=== PATIENT | female | born 1940 | race Caucasian/White ===

== ENCOUNTER 2024-08-22 14:08 | Emergency (ER) | payer OTHER, BC, SELFPAY ==
[2024-08-22 14:15] VITALS: BP 185/95
--- NOTE | 2024-08-22 14:21 | ED.GENMED ---
ED Provider Triage
<Luis Anderson PA-C - Last Filed: 08/22/24 14:22>
-
Patient seen by provider in Triage?: Seen in Triage
83-year-old female presents with progressive weakness cough shortness of breath and fatigue. This has been worsening over the past week. There are multiple members in the household that are sick. She also describes a stress on her heart. She
cannot do anything without shortness of breath. No prior history of CHF or coronary artery disease.
Vital signs are stable at triage. Will start workup with labs troponin EKG chest x-ray COVID and flu testing
Seen by provider in triage but warrants further assessment
History of Present Illness
<Luis Anderson PA-C - Last Filed: 08/22/24 14:22>
General
Chief Complaint: Cold/Flu/URI Symptoms
Time Seen by Provider: 08/22/24 17:31
<Derrick Meek MD - Last Filed: 08/22/24 19:12>
General
Source: patient and family (Son)
Exam Limitations: none
History of Present Illness
History of Present Illness:
83-year-old female 2 to 3 days cough congestion fatigue weakness. No fever. No pleuritic pain. No hemoptysis. History of same last year in [place].
Past History
<Derrick Meek MD - Last Filed: 08/22/24 19:12>
Past History
ED Past Medical History: NIDDM
ED Past Surgical History: Orthopedic
Review of Systems
<Derrick Meek MD - Last Filed: 08/22/24 19:12>
Review of Systems
All Other Systems: Not applicable
Constitutional: Reports fatigue
Respiratory: Denies hemoptysis
Cardiac: Denies chest pain or syncope
Phy Exam
<Derrick Meek MD - Last Filed: 08/22/24 19:12>
Physical Exam
Physical Exam:
GENERAL: Alert and oriented moderately anxious.
EYE: Orbits normal.
NECK: Supple
CARDIAC: Regular rate and rhythm without any obvious murmurs.
LUNGS: Mildly tachypneic. Mild expiratory rhonchi in the bases. No florid rales.
ABDOMEN: Soft, without focal tenderness or distention
NEUROLOGICAL: Alert and oriented , grossly non-focal
SKIN: Warm and dry, no rash or lesion, no discoloration, skin intact.
MUSCULOSKELETAL: No edema,no deformity.Good color
PSYCH: Normal and appropriate interaction..
Course
<Luis Anderson PA-C - Last Filed: 08/22/24 14:22>
Orders/Labs/Results
Orders:
Orders
08/22/24 14:20
Electrocardiogram (*1) Urgent
Reason for Study: Shortness of Breath
EKG- Treatment ONCE
08/22/24 14:21
CR Chest - 2 Views Urgent
Comment:
Reason For Exam: sob
08/22/24 14:26
COVID-19 Antigen Urgent
Source: Nasal Swab
Complete Blood Count/With Diff Urgent
Comprehensive Metabolic Panel Urgent
NT-proBNP Urgent
Troponin I Urgent
Influenza A+B Rapid Molecular Urgent
EMERITA Source: Nasal Swab
Specimen Description:
08/22/24 17:45
Dexamethasone Sod Phosphate [Decadron] 6 mg IV NOW STA
08/22/24 17:47
0.9% Sodium Chloride 500 ml [Nss] 500 ml IV BOLUS
08/22/24 18:19
Doxycycline [Vibramycin] 100 mg PO NOW STA
Prednisone [Deltasone] 40 mg PO NOW STA
Abnormal Lab Results
08/22/24
14:26
WBC 12.9 H 10^3/uL
(4.8-10.8)
RBC 5.93 H 10^6/uL
(4.20-5.40)
Hgb 17.8 H g/dL
(12.0-16.0)
Hct 50.2 H %
(37.0-47.0)
Abs Immat Gran (auto) 0.1 H 10^3/uL
(0-0.05)
Absolute Neuts (auto) 11.1 H 10^3/uL
(1.4-6.5)
Absolute Lymphs (auto) 0.7 L 10^3/uL
(1.2-3.4)
Absolute Monos (auto) 1.0 H 10^3/uL
(0.1-0.6)
Immature Gran % 0.7 H %
(0-0.5)
Neutrophils % 85.7 H %
(42.2-75.2)
Lymphocytes % 5.2 L %
(20.5-51.1)
Carbon Dioxide 20 L mmol/L
(22-30)
Glucose 176 H mg/dl
(70-99)
Troponin I 0.042 H* ng/ml
08/22/24 14:26
08/22/24 14:26
Vital Signs
Initial and Last Documented VS:
Initial Vital Signs
Temp Pulse Resp BP Pulse Ox
98.5 F 103 16 185/95 94
08/22/24 14:15 08/22/24 14:15 08/22/24 14:15 08/22/24 14:15 08/22/24 14:15
Last Documented Vital Signs
Temp Pulse Resp BP Pulse Ox
98.5 F 103 22 159/94 93
08/22/24 14:15 08/22/24 17:30 08/22/24 17:30 08/22/24 17:30 08/22/24 17:30
<Derrick Meek MD - Last Filed: 08/22/24 19:12>
Orders/Labs/Results
Orders:
Orders
08/22/24 14:20
Electrocardiogram (*1) Urgent
Reason for Study: Shortness of Breath
EKG- Treatment ONCE
08/22/24 14:21
CR Chest - 2 Views Urgent
Comment:
Reason For Exam: sob
08/22/24 14:26
COVID-19 Antigen Urgent
Source: Nasal Swab
Complete Blood Count/With Diff Urgent
Comprehensive Metabolic Panel Urgent
NT-proBNP Urgent
Troponin I Urgent
Influenza A+B Rapid Molecular Urgent
EMERITA Source: Nasal Swab
Specimen Description:
08/22/24 17:45
Dexamethasone Sod Phosphate [Decadron] 6 mg IV NOW STA
08/22/24 17:47
0.9% Sodium Chloride 500 ml [Nss] 500 ml IV BOLUS
08/22/24 18:19
Doxycycline [Vibramycin] 100 mg PO NOW STA
Prednisone [Deltasone] 40 mg PO NOW STA
Abnormal Lab Results
08/22/24
14:26
WBC 12.9 H 10^3/uL
(4.8-10.8)
RBC 5.93 H 10^6/uL
(4.20-5.40)
Hgb 17.8 H g/dL
(12.0-16.0)
Hct 50.2 H %
(37.0-47.0)
Abs Immat Gran (auto) 0.1 H 10^3/uL
(0-0.05)
Absolute Neuts (auto) 11.1 H 10^3/uL
(1.4-6.5)
Absolute Lymphs (auto) 0.7 L 10^3/uL
(1.2-3.4)
Absolute Monos (auto) 1.0 H 10^3/uL
(0.1-0.6)
Immature Gran % 0.7 H %
(0-0.5)
Neutrophils % 85.7 H %
(42.2-75.2)
Lymphocytes % 5.2 L %
(20.5-51.1)
Carbon Dioxide 20 L mmol/L
(22-30)
Glucose 176 H mg/dl
(70-99)
Troponin I 0.042 H* ng/ml
08/22/24 14:26
08/22/24 14:26
Vital Signs
Initial and Last Documented VS:
Initial Vital Signs
Temp Pulse Resp BP Pulse Ox
98.5 F 103 16 185/95 94
08/22/24 14:15 08/22/24 14:15 08/22/24 14:15 08/22/24 14:15 08/22/24 14:15
Last Documented Vital Signs
Temp Pulse Resp BP Pulse Ox
98.5 F 103 22 159/94 93
08/22/24 14:15 08/22/24 17:30 08/22/24 17:30 08/22/24 17:30 08/22/24 17:30
<Derrick Meek MD - Last Filed: 08/22/24 19:12>
MDM/Problems Addressed
Differential Diagnosis Includes:
Most suspicious of a respiratory issue. Pneumonitis by x-ray. Symptoms are more consistent with respiratory. However patient is tachypneic and off at rest and weak enough that this warrants inpatient evaluation. Would also consider a mild CHF
component. Patient rechecked multiple times throughout her ER stay. She was ambulated around the ER. Pulse ox did remain in the low 90s however I stressed to her that I felt she was ill enough and there is some uncertainty in the underlying
etiology of this clearly warranted admission. Patient refused and is aware of the risk
<Derrick Meek MD - Last Filed: 08/22/24 19:12>
*Pulse Oximetry
Patient hypoxic: no
*EKG
Interpreted by ED Provider?: Yes
Interpretation: abnormal
Heart Rate: 97
Rate: normal
Rhythm: sinus
[place]: normal axis
Interval: normal interval
QRS Pattern: right bundle branch block
Ischemia: non-specific ST changes
*[employer] Operator Interpretation
Rate: normal
Interpretation: normal
Heart Rate: 90
Rhythm: sinus
*Critical Care Note
Total Time (30-74mins, 75-104mins- exclusive of procedures): Not Applicable
<Derrick Meek MD - Last Filed: 08/22/24 19:12>
Update Note
Update Note:
1819..... I advised the patient earlier to stay in the hospital. She seemed reluctantly willing at first. Plan was to give a dose of steroids some fluids observed for a while. In the hopes that she was willing to stay. However she refuses. She
adamantly refuses. I did ambulate her around the [place]. Her pulse ox was 92 to 93% but mildly tachypneic and generally weak appearing. I explained at length that this clinically appears more likely to be respiratory however I could not be 100%
sure there was not a CHF/cardiac component to her issues. I explained to her that this could be life-threatening whether it was purely respiratory purely cardiac or both. She is fully aware of that. She is fully understanding of this risk and
refuses to stay. Son was in the room and is also understanding I also stressed that if she changes her mind we are of course would be happy to have her come back and be reevaluated
ED Attending Note
<Luis Anderson PA-C - Last Filed: 08/22/24 14:22>
-
Portions of this chart may have been created with voice recognition software.� Occasional wrong word or��sound alike� substitutions may have occurred due to the inherent limitations of voice recognition software.
Discharge Plan
Departure
Patient Disposition: Home (Routine Discharge)
Date of Disposition: 08/22/24
Time of Disposition: 18:22
Patient with high blood pressure during this ER visit?: Yes
Discharge Problem:
Pneumonitis/upper respiratory infection, Possible CHF, Lung mass
Instructions: Shortness of breath in adults - ED discharge instructions, BLOOD PRESSURE
Prescriptions:
New
doxycycline hyclate 100 mg capsule
100 mg PO BID 10 Days Qty: 20 0RF
methylprednisolone [Medrol (Sridhar)] 4 mg tablets,dose pack
See Rx Instructions .ROUTE .COMPLEX Qty: 21 0RF
Rx Instructions:
for 6 days
Referrals:
Caden Rios, [Family Provider] - Follow up in 2-3 days
Activity Restrictions/Additional Instructions:
You should stay in the hospital. This could be life-threatening if you do not.
Please return if you change your mind about admission or get worse
Follow-up your CAT scan report with your primary physician
Interventions
Interventions:
*Risk Screen - Suicide Last Done: 08/22/24 14:15
*General Assessment Last Done: 08/22/24 17:30
*Neglect/Abuse Screening Last Done: 08/22/24 14:15
*ED COVID-19 Vaccine History Last Done: 08/22/24 17:30
*Nursing Disposition Last Done: 08/22/24 18:51
ED- Pulmonary Assessment Last Done: 08/22/24 17:30
Discharge Date and Time
Discharge Date/Time: 08/22/24 18:52
Print Language: BRITISH
[2024-08-22 14:37] LABS: % Basophils 0.3 % (0-2); % Eosinophils 0.2 % (0-6); % Immature Granulocytes 0.7 % (0-0.5); % Lymphocytes 5.2 % (20.5-51.1); % Monocytes 7.9 % (1.7-9.3); % Neutrophils 85.7 % (42.2-75.2); Absolute Immature Granulocytes 0.1 10^3/uL (0-0.05); Absolute Lymphocytes 0.7 10^3/uL (1.2-3.4); Absolute Neutrophils 11.1 10^3/uL (1.4-6.5); Hematocrit 50.2 % (37.0-47.0); Hemoglobin 17.8 g/dL (12.0-16.0); Mean Corp Hgb Conc. 35.5 g/dL (33.0-37.0); Mean Corpuscular Volume 84.7 fL (81.0-99.0); Mean Platelet Volume 9.7 fL (7.4-10.4); Nucleated Red Blood Cells % 0 %; Platelet Count 169 10^3/uL (130-400); Red Blood Cell Count 5.93 10^6/uL (4.20-5.40); Red Cell Dist. Width 12.8 % (11.5-14.5); White Blood Cell Count 12.9 10^3/uL (4.8-10.8)
[2024-08-22 14:47] LABS: ALT (SGPT) 21 U/L (0-35); AST (SGOT) 26 U/L (14-36); Albumin 4.6 g/dl (3.5-5.0); Alkaline Phosphatase 81 U/L (38-126); Blood Urea Nitrogen 12 mg/dl (7-17); Calcium 9.5 mg/dl (8.4-10.2); Carbon Dioxide 20 mmol/L (22-30); Chloride 100 mmol/L (98-107); Glucose 176 mg/dl (70-99); Potassium 3.8 mmol/L (3.5-5.1); Sodium 136 mmol/L (135-145); Total Bilirubin 1.1 mg/dl (0.2-1.3); Total Protein 7.6 g/dl (6.3-8.2); eGFR > 60.00
[2024-08-22 14:59] LABS: COVID-19 Antigen Negative (Negative)
[2024-08-22 15:02] LABS: NT-proBNP 1440 pg/ml; Troponin I 0.042 ng/ml
[2024-08-22 17:30] VITALS: BP 159/94
[2024-08-22] MEDS: DELTASONE 40 MG PO (18:30)
[2024-08-22] MEDS: VIBRAMYCIN 100 MG PO (18:30)
== END 2024-08-22 18:52 | disposition home or self-care (01) ==
LOC: EMR 14:08
PROVIDERS: Physician Assistant; EMERGENCY PHYSICIAN Emergency Medicine; FAMILY PHYSICIAN Family Medicine
DX: J98.4 Other disorders of lung (principal); J06.9 Acute upper respiratory infection, unspecified; E11.9 Type 2 diabetes mellitus without complications
CPT/HCPCS: 99285; 71046; 80053; 83880; 84484; 85025; 87502; 87811; 93005

== ENCOUNTER 2024-08-23 12:10 | Inpatient (IN) | payer OTHER, SELFPAY ==
[2024-08-23] VITALS (12 sets, daily range): BP systolic 127–182; BP diastolic 63–104; BMI 32.5
[2024-08-23] MEDS: DUONEB 3 ML INH (08:12)
[2024-08-23] MEDS: ATIVAN 0.25 MG IV ×2 (08:12→20:29)
[2024-08-23 08:17] LABS: Venous Blood Gas B.E. -1.3 mmol/L (-4 to +4); Venous Blood Gas HCO3 23.7 mmol/L (22-27); Venous Blood Gas pCO2 40 mmHg (35-48); Venous Blood Gas pH 7.38 (7.32-7.43); Venous Blood Gas pO2 90 mmHg (30-50)
[2024-08-23 08:18] LABS: Venous Blood Gas O2 Therapy %Oxygen/Room Air 93
[2024-08-23 08:21] LABS: % Basophils 0.5 % (0-2); % Eosinophils 0.1 % (0-6); % Immature Granulocytes 0.6 % (0-0.5); % Lymphocytes 8.4 % (20.5-51.1); % Monocytes 7.7 % (1.7-9.3); % Neutrophils 82.7 % (42.2-75.2); Absolute Basophils 0.1 10^3/uL (0-0.2); Absolute Immature Granulocytes 0.1 10^3/uL (0-0.05); Absolute Lymphocytes 1.3 10^3/uL (1.2-3.4); Absolute Monocytes 1.2 10^3/uL (0.1-0.6); Absolute Neutrophils 12.7 10^3/uL (1.4-6.5); Hematocrit 51.5 % (37.0-47.0); Mean Corpuscular Hgb 29.7 pg (27.0-31.0); Mean Platelet Volume 9.4 fL (7.4-10.4); Nucleated Red Blood Cells % 0 %; Platelet Count 219 10^3/uL (130-400); Red Blood Cell Count 6.06 10^6/uL (4.20-5.40); Red Cell Dist. Width 13.2 % (11.5-14.5); White Blood Cell Count 15.4 10^3/uL (4.8-10.8)
[2024-08-23 08:28] LABS: ALT (SGPT) 21 U/L (0-35); AST (SGOT) 35 U/L (14-36); Albumin 4.5 g/dl (3.5-5.0); Alkaline Phosphatase 73 U/L (38-126); Blood Urea Nitrogen 21 mg/dl (7-17); Calcium 9.5 mg/dl (8.4-10.2); Carbon Dioxide 23 mmol/L (22-30); Chloride 99 mmol/L (98-107); Estimated Creatinine Clearance 46 ml/min; Glucose 173 mg/dl (70-99); Potassium 3.9 mmol/L (3.5-5.1); Sodium 136 mmol/L (135-145); Total Bilirubin 0.7 mg/dl (0.2-1.3); Total Protein 7.3 g/dl (6.3-8.2); eGFR > 60.00
[2024-08-23 08:50] LABS: Troponin I 0.071 ng/ml
--- NOTE | 2024-08-23 09:07 | ED.GENMED ---
History of Present Illness
General
Chief Complaint: Breathing Problem
Source: patient, records and family
Exam Limitations: none
Time Seen by Provider: 08/23/24 07:34
Nursing documentation reviewed up to this point in time: agreed with
History of Present Illness
History of Present Illness:
83-year-old female with a past medical history of diabetes, hypothyroidism who presents to the emergency room with her family for evaluation of shortness of breath. Patient was seen in this emergency room yesterday; she had a chest x-ray which
showed pneumonitis and new lung mass. She was tachypneic and it was felt that she had likely a pneumonitis/bronchitis possibly some component of CHF (proBNP was elevated). She was recommended for admission to the hospital but declined admission
and left against advice. She returns today with worsening symptoms. She says that she was barely able to sleep last night due to shortness of breath and today even moving around in bed makes her feel extremely winded. She is denying any chest
pain to me. She has been coughing. Has not noticed any swelling of the legs. No fever or chills. She says she is very anxious. No other complaints.
Past History
Past History
ED Past Medical History: NIDDM
ED Past Surgical History: Orthopedic
Review of Systems
Review of Systems
All Other Systems: ROS reviewed and negative except as documented in HPI and ROS
Constitutional: Reports fatigue; Denies fever
Respiratory: Reports cough and trouble breathing
Cardiac: Denies chest pain or palpitations
ABD/GI: Denies abdominal pain, nausea or vomiting
: Denies flank pain
Musculoskeletal: Denies edema
Neurological: Denies dizzy or headache
Psychiatric: Reports anxiety
Phy Exam
Physical Exam
Physical Exam:
General: Awake, alert, oriented x3; anxious appearing
Head: Normocephalic, atraumatic
Eyes: Conjunctiva normal, EOMI
Throat: Airway intact, handling secretions
Neck: Trachea midline, no JVD
Lungs: Wheezing throughout all lung [place], tachypnea, speaking in short sentences; low normal pulse ox on room air
Heart: Tachycardia with regular rhythm, no murmurs, gallops, or rubs
Abd: Soft, non distended, nontender
Neuro: No gross deficits
Skin: no rash
Extremities: Trace edema at the ankles, equal pulses in all extremities
Scores
Heart Failure Risk
Heart Failure Risk Score: Not Applicable
Heart Score for Chest Pain Patients
STEMI patient?: Not applicable
Withdrawal Assessment of Alcohol
Withdrawal Assessment Completed?: Not applicable
Course
Orders/Labs/Results
Orders:
Orders
08/23/24 07:43
CT Chest PE Study Urgent
Comment:
Reason For Exam: SOB
Influenza A+B Rapid Molecular Urgent
EMERITA Source: Nasal Swab
Specimen Description:
Ipratropium/Albuterol Sulfate [Duoneb] 3 ml INH R NOW STA
Lorazepam [Ativan] 0.25 mg IV NOW STA
08/23/24 08:06
Complete Blood Count/With Diff Urgent
Comprehensive Metabolic Panel Urgent
Troponin I Urgent
Venous Blood Gas Urgent
%Oxygen/Room Air: 93
RSV [Respiratory Syncytial Virus] Urgent
EMERITA Source: Nasal Swab
Specimen Description:
Date Specimen was Collected: 08/23/24
Time Specimen was Collected: 07:59
08/23/24 09:11
Dexamethasone Sod Phosphate [Decadron] 10 mg IV NOW STA
08/23/24 09:56
Lactate Level [Lactic Acid] Urgent
Procalcitonin Urgent
PCT Algorithmm Indication: Respiratory
Blood Culture Q30M
EMERITA Source: Blood/Venous
Specimen Description:
Blood Culture Q30M
EMERITA Source: Blood/Venous
Specimen Description:
08/23/24 09:59
CefTRIAXone [Rocephin] 1,000 mg IV NOW STA
Doxycycline Hyclate [Vibramycin] 100 mg 0.9% Sodium Chloride 250 ml [Nss] 250 ml IV NOW
Abnormal Lab Results
08/23/24
08:06
WBC 15.4 H 10^3/uL
(4.8-10.8)
RBC 6.06 H 10^6/uL
(4.20-5.40)
Hgb 18.0 H g/dL
(12.0-16.0)
Hct 51.5 H %
(37.0-47.0)
Abs Immat Gran (auto) 0.1 H 10^3/uL
(0-0.05)
Absolute Neuts (auto) 12.7 H 10^3/uL
(1.4-6.5)
Absolute Monos (auto) 1.2 H 10^3/uL
(0.1-0.6)
Immature Gran % 0.6 H %
(0-0.5)
Neutrophils % 82.7 H %
(42.2-75.2)
Lymphocytes % 8.4 L %
(20.5-51.1)
VBG pO2 90 H mmHg
(30-50)
BUN 21 H mg/dl
(7-17)
Glucose 173 H mg/dl
(70-99)
Troponin I 0.071 H* ng/ml
08/23/24 08:06
08/23/24 08:06
Vital Signs
Initial and Last Documented VS:
Initial Vital Signs
Temp Pulse Resp BP Pulse Ox
36.7 C 107 20 172/104 93
08/23/24 07:30 08/23/24 07:30 08/23/24 07:30 08/23/24 07:30 08/23/24 07:30
Last Documented Vital Signs
Temp Pulse Resp BP Pulse Ox
36.7 C 92 30 182/88 94
08/23/24 07:30 08/23/24 08:30 08/23/24 08:30 08/23/24 08:00 08/23/24 08:30
MDM/Problems Addressed
Differential Diagnosis Includes:
Bronchitis, pneumonitis, pneumonia, PE, CHF
MDM/Problems Addressed:
83-year-old female with history as documented returns to the ER with worsening dyspnea after being seen yesterday diagnosed with bronchitis/pneumonitis and new lung mass. She arrives was hypertensive, tachycardic, tachypneic, low normal pulse ox.
Physical exam as above. Will place an IV send labs including a CBC and a CMP, VBG, troponin and proBNP. Will check CTA chest. Check an EKG. Swabs for COVID and flu negative yesterday. Add RSV. Will provide DuoNeb with significant wheezing and
a dose of steroids. Reassess after the above. Anticipate admission.
Labs reviewed: CBC shows leukocytosis to 15.4�with multiple SIRS criteria lactate and blood culture sent off. Her VBG shows no significant CO2 retention. CMP no clinically significant abnormalities. Troponin marginally elevated suspect in the
setting of respiratory illness�will trend. CT chest concerning for possible pneumonia. She was also positive for RSV. Treat with steroids, neb, antibiotics. Case discussed with hospitalist for admission with concern for sepsis secondary to
pneumonia, RSV.
*Radiology
Radiology exam reviewed: radiology read reviewed
*Pulse Oximetry
Patient hypoxic: no
*Critical Care Note
Total Time (30-74mins, 75-104mins- exclusive of procedures): Not Applicable
Data Reviewed
Review of Other/Old Records Reveals: Labs and Records
Source: patient, records and family
Patient Management
Discussion with other providers: Hospitalist (Discussed with hospitalist)
Escalation/DeEscalation of care consider admission/obs:
Admission indicated
ED Attending Note
-
Portions of this chart may have been created with voice recognition software.� Occasional wrong word or��sound alike� substitutions may have occurred due to the inherent limitations of voice recognition software.
Discharge Plan
Departure
Patient Disposition: Admit
Date of Disposition: 08/23/24
Time of Disposition: 10:08
Admit to doctor: Gerard
Presentation/result/management discussed w/ accepting MD/DO: Hospitalist
Discharge Problem:
Sepsis, Pneumonia, RSV bronchitis
Prescriptions:
No Action
doxycycline hyclate 100 mg capsule
100 mg PO BID 10 Days Qty: 20 0RF
methylprednisolone [Medrol (Sridhar)] 4 mg tablets,dose pack
See Rx Instructions .ROUTE .COMPLEX Qty: 21 0RF
Rx Instructions:
for 6 days
Referrals:
Caden Rios DO [Family Provider] -
Interventions
Interventions:
*Risk Screen - Suicide Last Done: 08/23/24 08:20
*General Assessment Last Done: 08/23/24 08:20
*Neglect/Abuse Screening Last Done: 08/23/24 08:20
ED- Fall Risk Assessment Last Done: 08/23/24 08:20
*ED COVID-19 Vaccine History Last Done: 08/23/24 08:20
ED- Cardiac Assessment Last Done: 08/23/24 08:20
ED- Pulmonary Assessment Last Done: 08/23/24 08:20
Discharge Date and Time
Print Language: IRISH
[2024-08-23] MEDS: DECADRON 10 MG IV (09:41)
[2024-08-23 10:15] LABS: Lactic Acid 1.9 mmol/L (0.7-2.0)
[2024-08-23 10:34] LABS: Procalcitonin 0.43 ng/ml (0.0-0.25)
[2024-08-23] MEDS: NSS 1000 IV (10:59)
[2024-08-23] MEDS: ROCEPHIN 1000 MG IV (10:59)
[2024-08-23] MEDS: VIBRAMYCIN 260 MG IV (11:31)
--- NOTE | 2024-08-23 11:36 | HPS.HSE ---
Family Physician
-
Family Physician: Caden Rios
Chief Complaint
-
Cough, shortness of breath
History of Present Illness
83-year-old female with history of type 2 diabetes mellitus, hypothyroidism presented to the ED with cough, shortness of breath. Patient was seen in the ED yesterday for similar complaint. She had chest x-ray which showed pneumonitis and a new
lung mass. She was tachypneic, elevated proBNP. She was advised for hospital admission but declined and left against advice. She returns today with worsening symptoms. She states that she was barely able to sleep last night due to shortness of
breath and today even moving around in bed makes her feel extremely winded. Patient denies chest pain. She is out of breath while speaking in full sentences. She denies swelling of the legs, fever, chills. She denies history of stroke, heart
failure, hypertension.
Medical History
Past Medical History
Past Medical History: Reports Hypothyroidism and NIDDM
Past Surgical History: Reports Orthopedic
Social History
Tobacco: Non-smoker
Alcohol: None
Drug: None
Personal: Single
Employment: Retired
Family History
Family History: Not pertinent
Allergies / Home Medications
Allergies reflects when Allergies were last updated in [facility].
Home Medications with original date entered in [facility]
Allergy/Medication List:
Allergies
Allergy/AdvReac Type Severity Reaction Status Date / Time
No Known Allergies Allergy Verified 08/22/24 14:15
Home Medications
doxycycline hyclate 100 mg capsule 100 mg PO BID 10 days #20 caps 08/22/24
methylprednisolone 4 mg tablets in a dose pack (Medrol (Sridhar)) See Rx Instructions PO .COMPLEX #21 ea 08/22/24
Review of Systems
-
History Source: Patient and Family (son)
Respiratory: Reports Cough and Trouble Breathing
Physical Exam
Vital Signs
Vital Signs
Temp Pulse Resp BP Pulse Ox
98.0 F 103 16 127/83 95
08/23/24 07:30 08/23/24 10:00 08/23/24 10:56 08/23/24 10:00 08/23/24 10:00
Physical Exam
General: Other (trouble breathing, able to speak in full sentences)
HEENT: NormoCephalic, Anicteric, Moist mucous membranes and Atraumatic
Respiratory: Clear and Other (mil course breath sounds at the right base )
Cardiac: S1/S2 and Regular Rhythm
Musculoskeletal: No Edema
Skin: Warm and Dry
Neuro: AO x 3
Psych: Anxious
Laboratory Results
-
08/23/24 08:06
08/23/24 08:06
Laboratory Results
Lactic Acid 1.9 mmol/L (0.7-2.0) 08/23/24 09:56
Total Bilirubin 0.7 mg/dl (0.2-1.3) 08/23/24 08:06
AST 35 U/L (14-36) 08/23/24 08:06
ALT 21 U/L (0-35) 08/23/24 08:06
Alkaline Phosphatase 73 U/L (38-126) 08/23/24 08:06
Troponin I 0.071 ng/ml H* 08/23/24 08:06
Data Reviewed
-
Diagnostic Radiology: Report Reviewed by me and Discussed with Physician
CT Scan: Report Reviewed by me and Discussed with Physician
Medical Tests (Nuc Med, Echo, EKG etc): Report Reviewed by me and Discussed with Physician
Lab Data: Labs Reviewed by me and Discussed with Physician
Impression/Plan
-
IMPRESSION:
Acute hypoxic respiratory insufficiency
Right lobe pneumonia
RSV positive
Type 2 diabetes mellitus
Hypothyroidism
Anxiety
PLAN:
Acute hypoxic respiratory insufficiency
Secondary to pneumonia/RSV
On 2 L of oxygen
Wean as able
Right lobe pneumonia
Check strep antigen and Legionella antigen
Check MRSA
Blood cultures pending
Start on IV cefepime and doxycycline
Tylenol for fever as needed
Incentive spirometry
Chest x-ray showed 2.9 cm right upper lobe mass
Chest CT was done which showed Patchy parenchymal airspace opacities are present within the right upper lobe, as well as the right middle lobe.
There is 2.4 cm in diameter focal confluent opacity which represents pneumonia. Not suggestive of neoplasia
RSV positive
Supportive care
Steroids not needed
Type 2 diabetes
Unverified home medication
Sliding scale
Hypothyroidism
Unverified home medication
Continue Synthroid
CODE STATUS full code
DVT prophylaxis Lovenox
[2024-08-23] MEDS: STERILE WATER FOR INJECTION 10 ML IV ×2 (12:16→20:31)
[2024-08-23] MEDS: MAXIPIME 2000 MG IV ×2 (12:16→20:30)
--- NOTE | 2024-08-23 12:25 | W.PN.UPDATE ---
Update Note
Progress Note Update
I personally performed a history and physical exam of the patient and discussed management with the resident. I reviewed the resident's note and agree with the documented findings and plan of care HPI/CC.
83-year-old female presents with chief complaints of cough and shortness of breath.
144/70, 91, 35, 98.0 �F, 95% 2L NC O2
Gen: NAD, Awake and alert
Eyes: EOMI, PERRLA, no scleral icterus.
Neck: supple.
CV: RRR, +S1/S2, no m/r/g.
Resp: CTAB, no rales, wheezes, or rhonchi.
Abd: +BS, soft, NT, ND
Skin: No rashes.
Neuro: CN 2-12 intact, non-focal.
Psych: Normal mood and affect.
Lab Results
08/23/24 08/23/24
08:06 09:56
WBC 15.4 H
RBC 6.06 H
Hgb 18.0 H
Hct 51.5 H
MCV 85.0
MCH 29.7
MCHC 35.0
RDW 13.2
Plt Count 219 D
MPV 9.4
Abs Immat Gran (auto) 0.1 H
Absolute Neuts (auto) 12.7 H
Absolute Lymphs (auto) 1.3
Absolute Monos (auto) 1.2 H
Absolute Eos (auto) 0.0
Absolute Basos (auto) 0.1
Immature Gran % 0.6 H
Neutrophils % 82.7 H
Lymphocytes % 8.4 L
Monocytes % 7.7
Eosinophils % 0.1
Basophils % 0.5
Nucleated RBC % 0
VBG pH 7.38
VBG pCO2 40
VBG pO2 90 H
VBG HCO3 23.7
VBG O2 Sat (Romulo) 98.0
VBG Base Excess -1.3
VBG O2 Therapy %oxygen/room air 93
Sodium 136
Potassium 3.9
Chloride 99
Carbon Dioxide 23
BUN 21 H
Creatinine 0.8
Estimated Creat Clear 46
eGFR > 60.00
Glucose 173 H
Lactic Acid 1.9
Calcium 9.5
Total Bilirubin 0.7
AST 35
ALT 21
Alkaline Phosphatase 73
Troponin I 0.071 H*
Total Protein 7.3
Albumin 4.5
Procalcitonin 0.43 H
08/23/24 08:06 Nasal Swab Respiratory Syncytial Virus Culture - Final
RSV Antigen Positive
CT chest: No PE. Bilateral apical airspace opacities, greatest within the right upper lobe, and findings are compatible with pneumonia. Small focus of confluent opacity within the right upper lobe, which is most likely a confluent focus of
pneumonia. Continued follow-up is recommended to look for resolution of presumed changes of pneumonia, and exclude underlying neoplasia. There are enlarged right hilar and mediastinal lymph nodes, most likely reactive inflammatory lymph nodes. No
significant pleural effusions are identified. Coronary artery calcifications are present. Please correlate with symptoms of and risk factors for coronary artery disease, with further workup as clinically appropriate. Mild fatty infiltration of the
liver in the visualized upper abdomen.
Sepsis and acute hypoxemic respiratory insufficiency due to acute viral (RSV) and bacterial bilateral pneumonia:
-Steroids given in the ER. Will not continue steroids as there is no indication.
-procal minimally elevated
-cont Cefepime/Doxy
-wean O2 as tolerated
-trend leukocytosis
-check Strep urinary Ag
[2024-08-23 16:01] LABS: Glucose - Point of Care 153 mg/dl (70-99)
[2024-08-23] MEDS: NOVOLOG FLEXPEN-LOW RESISTANCE 1 UNITS SC (16:35)
[2024-08-23] MEDS: LOVENOX SC ×2 (16:42→16:44)
[2024-08-23] MEDS: LOVENOX 40 MG SC (16:46)
--- NOTE | 2024-08-23 18:00 | PTCARENOTE ---
Pt presents to room from ED, assist x1 to bed, steady but weak. Harsh nonproductive cough, 98% on RA, [place]. LS diminished w/ scattered rhonchi. BP elevated, notified, 5mg IV Hydralazine ordered and given.Pt AOx3, but forgetful and impulsive,
ambulating w/o calling for assistance. MEd sitter placed in room for pt safety.
[2024-08-23] MEDS: APRESOLINE 5 MG IV (18:03)
[2024-08-23] MEDS: VIBRAMYCIN 100 MG PO (20:31)
[2024-08-23] MEDS: NSS (PRESERVATIVE FREE) 0.125 ML IV (20:31)
[2024-08-23 21:54] LABS: Glucose - Point of Care 172 mg/dl (70-99)
[2024-08-24] MEDS: MAXIPIME 2000 MG IV ×3 (04:21→20:44)
[2024-08-24] MEDS: STERILE WATER FOR INJECTION 10 ML IV ×3 (04:21→20:44)
[2024-08-24 07:06] LABS: % Basophils 0.3 % (0-2); % Eosinophils 0.1 % (0-6); % Immature Granulocytes 0.8 % (0-0.5); % Lymphocytes 16.7 % (20.5-51.1); % Monocytes 12.3 % (1.7-9.3); % Neutrophils 69.8 % (42.2-75.2); Absolute Basophils 0.1 10^3/uL (0-0.2); Absolute Immature Granulocytes 0.1 10^3/uL (0-0.05); Absolute Lymphocytes 2.7 10^3/uL (1.2-3.4); Absolute Neutrophils 11.4 10^3/uL (1.4-6.5); Hematocrit 51.9 % (37.0-47.0); Mean Corp Hgb Conc. 34.7 g/dL (33.0-37.0); Mean Corpuscular Hgb 30.1 pg (27.0-31.0); Mean Corpuscular Volume 86.6 fL (81.0-99.0); Mean Platelet Volume 10.1 fL (7.4-10.4); Nucleated Red Blood Cells % 0 %; Platelet Count 251 10^3/uL (130-400); Red Blood Cell Count 5.99 10^6/uL (4.20-5.40); Red Cell Dist. Width 13.3 % (11.5-14.5); White Blood Cell Count 16.3 10^3/uL (4.8-10.8)
[2024-08-24 07:26] LABS: ALT (SGPT) 23 U/L (0-35); AST (SGOT) 38 U/L (14-36); Albumin 4.2 g/dl (3.5-5.0); Alkaline Phosphatase 68 U/L (38-126); Blood Urea Nitrogen 36 mg/dl (7-17); Calcium 9.8 mg/dl (8.4-10.2); Carbon Dioxide 20 mmol/L (22-30); Chloride 106 mmol/L (98-107); Estimated Creatinine Clearance 46 ml/min; Glucose 136 mg/dl (70-99); Potassium 4.2 mmol/L (3.5-5.1); Sodium 141 mmol/L (135-145); Total Bilirubin 0.6 mg/dl (0.2-1.3); Total Protein 7.2 g/dl (6.3-8.2); eGFR > 60.00
--- NOTE | 2024-08-24 07:31 | W.PN.HOSP.TC ---
Today's Communication/Plan
-
Await for pending results
Continue IV antibiotics
IV Ativan as needed
Monitor temperature curve and WBC
Assessment / Plan
Assessment / Plan
IMPRESSION:
Acute hypoxemic respiratory insufficiency
Sepsis due to bacterial bilateral pneumonia
Cough
RSV positive
Type 2 diabetes mellitus
Hypothyroidism
Anxiety
Hypertension
PLAN:
Acute hypoxemic respiratory insufficiency
Secondary to pneumonia/RSV
On 2 L of oxygen
Wean as able
Sepsis due to bacterial bilateral pneumonia
Afebrile in the past 24 hours
Leukocytosis 16.3>15.4
Lactic acid 1.9
Strep antigen and Legionella antigen- negative
MRSA pending
Blood cultures pending
Continue IV cefepime and doxycycline
Tylenol for fever as needed
Incentive spirometry
Albuterol inhaler
Monitor temperature curve and WBC
Cough
Harsh nonproductive
Robitussin and Tessalon Perles as needed
Lozenges
RSV positive
Supportive care
Steroids not needed as there is no indication
Type 2 diabetes
Unverified home medication
Check HbA1C
Sliding scale
Hypothyroidism
Continue Synthroid
Anxiety
Ativan IV prn
Sertraline 25 mg p.o. at bedtime
Hypertension
IV Hydralazine 5 mg prn
CODE STATUS full code
Diabetic diet
DVT prophylaxis Lovenox
Anticipated Discharge: > 48 hours
Subjective/Interval History
-
Date of Service: August 24, 2024
Med sitter was placed in room for safety last night. No new events
Objective Data
-
Labs:
Laboratory Results
08/24/24
06:36
WBC 16.3 H
Hgb 18.0 H
Hct 51.9 H
Plt Count 251
Sodium 141
Potassium 4.2
Chloride 106
Carbon Dioxide 20 L
BUN 36 H
Creatinine 0.8
Glucose 136 H
Calcium 9.8
Total Bilirubin 0.6
AST 38 H
ALT 23
Alkaline Phosphatase 68
Vital Signs:
Vital Signs
Temp Pulse Resp BP Pulse Ox
98.1 F 76 18 138/85 97
08/23/24 23:00 08/23/24 23:00 08/23/24 23:00 08/23/24 23:00 08/23/24 23:00
I&O
08/23/24 08/24/24 08/25/24
06:59 06:59 06:59
Intake Total 240 / 240
Output Total 100 / 100
Balance 140 / 140
Review of Systems
-
All other systems: Reviewed and negative
Physical Exam
-
General: Comfortable
HEENT: Normocephalic and Atraumatic
Respiratory: Clear to Auscultation; Negative Wheezes, Rales or Rhonchi
Cardiac: Regular Rhythm and S1/S2
Musculoskeletal: No Edema
Neuro: AO x 3
Psych: Anxious
Data Reviewed
-
Labs: Labs Reviewed by me and Discussed with Physician
--- NOTE | 2024-08-24 07:45 | W.PN.UPDATE ---
Update Note
Progress Note Update
I saw and evaluated the patient. I reviewed the resident�s note and agree with findings and plan as documented in the resident�s note.
Gen: NAD, Awake and alert
Eyes: EOMI, PERRLA, no scleral icterus.
Neck: supple.
CV: RRR, +S1/S2, no m/r/g.
Resp: CTAB, no rales, wheezes, or rhonchi.
Abd: +BS, soft, NT, ND
Skin: No rashes.
Neuro: CN 2-12 intact, non-focal.
Psych: Normal mood and affect.
CT chest: No PE. Bilateral apical airspace opacities, greatest within the right upper lobe, and findings are compatible with pneumonia. Small focus of confluent opacity within the right upper lobe, which is most likely a confluent focus of
pneumonia. Continued follow-up is recommended to look for resolution of presumed changes of pneumonia, and exclude underlying neoplasia. There are enlarged right hilar and mediastinal lymph nodes, most likely reactive inflammatory lymph nodes. No
significant pleural effusions are identified. Coronary artery calcifications are present. Please correlate with symptoms of and risk factors for coronary artery disease, with further workup as clinically appropriate. Mild fatty infiltration of the
liver in the visualized upper abdomen.
Sepsis and acute hypoxemic respiratory insufficiency due to acute viral (RSV) and bacterial bilateral pneumonia:
-RSV POS, Flu/COVID NEG
-Steroids given in the ER. Will not continue steroids as there is no indication.
-procal minimally elevated
-was on 4L NC O2, now 94% on RA (discussed with RN)
-trend leukocytosis
-check Strep urinary Ag
-cont Cefepime/Doxy, likely transition to PO abx tomorrow
Other problems:
Hypothyroidism: Continue Levoxyl
Minimally elevated troponin represents nonischemic myocardial injury
Obesity due to excess calories
FULL/Lovenox
[2024-08-24 07:56] VITALS: BP 179/87
[2024-08-24 08:11] LABS: Glucose - Point of Care 131 mg/dl (70-99)
[2024-08-24] MEDS: ZOLOFT 25 MG PO (08:35)
[2024-08-24] MEDS: SYNTHROID 100 MCG PO (08:35)
[2024-08-24] MEDS: NOVOLOG FLEXPEN-LOW RESISTANCE SC ×3 (08:35→17:49)
[2024-08-24] MEDS: VIBRAMYCIN 100 MG PO ×2 (08:35→20:43)
[2024-08-24] MEDS: ROBITUSSIN 100 MG PO ×4 (08:49→23:17)
[2024-08-24 13:01] LABS: Glucose - Point of Care 127 mg/dl (70-99)
[2024-08-24] MEDS: APRESOLINE 5 MG IV ×2 (13:12→23:16)
--- NOTE | 2024-08-24 15:04 | CM ---
Patient with Dx pneumonia/RSV. Contact Precautions/Droplet Precautions. Room air. Receiving IV & PO Abx. PT Eval pending.
Met with patient who resides alone at [facility] in a 1 story house with 3 steps at entrance and furnished basement.
The patient has been independent in ADLs and ambulation using her RW at home and cane when she goes out.
She says she is normally steady on her feet however felt unsure of herself while ambulating today due to SOB.
DME - RW, [facility]
No prior VN or SNF.
PCP - Caden Rios
Pharmacy - [facility]
CM Consult: Advanced Directive
Offered Advanced Directive and patient declined to take the forms saying she has no need for them, and that her son handles her affairs.
Discussed whether patient feels she has enough help at home - she says she may want to hire a caregiver. Caregiver List provided.
Plan follow up after seen by PT.
[2024-08-24 16:47] VITALS: BP 201/88; PULSE 89; O2SAT 98
[2024-08-24 16:55] VITALS: BP 169/82
[2024-08-24 17:06] LABS: Glucose - Point of Care 133 mg/dl (70-99)
[2024-08-24] MEDS: LOVENOX 40 MG SC (17:59)
[2024-08-24 21:30] LABS: Glucose - Point of Care 128 mg/dl (70-99)
[2024-08-24 23:00] VITALS: BP 164/85
[2024-08-24] MEDS: TESSALON PERLES 100 MG PO (23:17)
[2024-08-24] MEDS: ATIVAN 0.25 MG IV (23:18)
[2024-08-24] MEDS: NSS (PRESERVATIVE FREE) 0.125 ML IV (23:19)
[2024-08-25] MEDS: MAXIPIME 2000 MG IV ×2 (04:01→12:05)
[2024-08-25] MEDS: STERILE WATER FOR INJECTION 10 ML IV ×3 (04:02→17:46)
[2024-08-25 04:43] VITALS: BMI 32.0
[2024-08-25] MEDS: SYNTHROID 100 MCG PO (04:50)
[2024-08-25 07:32] LABS: % Basophils 0.3 % (0-2); % Immature Granulocytes 0.5 % (0-0.5); % Lymphocytes 19.9 % (20.5-51.1); % Monocytes 12.6 % (1.7-9.3); % Neutrophils 64.7 % (42.2-75.2); Absolute Eosinophils 0.2 10^3/uL (0-0.7); Absolute Immature Granulocytes 0.1 10^3/uL (0-0.05); Absolute Lymphocytes 2.3 10^3/uL (1.2-3.4); Absolute Monocytes 1.5 10^3/uL (0.1-0.6); Absolute Neutrophils 7.5 10^3/uL (1.4-6.5); Hematocrit 46.8 % (37.0-47.0); Hemoglobin 15.9 g/dL (12.0-16.0); Mean Corpuscular Hgb 29.6 pg (27.0-31.0); Mean Corpuscular Volume 87.2 fL (81.0-99.0); Mean Platelet Volume 9.9 fL (7.4-10.4); Nucleated Red Blood Cells % 0 %; Platelet Count 204 10^3/uL (130-400); Red Blood Cell Count 5.37 10^6/uL (4.20-5.40); Red Cell Dist. Width 13.3 % (11.5-14.5); White Blood Cell Count 11.5 10^3/uL (4.8-10.8)
[2024-08-25 07:40] LABS: Glucose - Point of Care 121 mg/dl (70-99)
[2024-08-25 07:47] VITALS: BP 150/76
[2024-08-25 08:24] LABS: Blood Urea Nitrogen 32 mg/dl (7-17); Calcium 8.7 mg/dl (8.4-10.2); Carbon Dioxide 20 mmol/L (22-30); Chloride 106 mmol/L (98-107); Estimated Creatinine Clearance 45 ml/min; Glucose 129 mg/dl (70-99); Potassium 3.7 mmol/L (3.5-5.1); Sodium 136 mmol/L (135-145); eGFR > 60.00
--- NOTE | 2024-08-25 09:23 | W.PN.HOSP.TC ---
Addendum entered and electronically signed by Leighton Ambriz MD 08/26/24 00:02:
Attending Addendum-
I saw and evaluated the patient. I reviewed the resident�s note and agree with findings and plan as documented in the resident�s note. Sub: seen with POA/son present. Cough and SOB improved. denies fevers chills Full 12 point ROS reviewed and
negative except as documented Exam: Vitals reviewed in chart GEN-NAd heart b/l scattered rhonchi abd soft LE no edema
# Sepsis and acute hypoxemic respiratory insufficiency due to acute viral (RSV) with probable superimposed bacterial CAP:
-RSV POS
-DC Steroids
-procal minimally elevated
-was on 4L NC O2, now 94% on RA- resolved
-leukocytosis trending down
-Strep and Legionella urinary Ag, Flu/COVID-NEG
-change Cefepime->rocephin cont Doxy, transition to PO abx on DC x 7 days
Other problems:
H/O DM- not on meds-HBa1c 6.0 - cont SSI and diet control for now
Hypothyroidism: Continue Levoxyl
depression- cont sertraline
Minimally elevated troponin represents nonischemic myocardial injury
Obesity due to excess calories
FULL/Lovenox
Dispo DC home in AM patient lives alone son lives closeby
Time spent coordinating care, review of plan of care with resident, personally reviewed records in EMR, med rec, consults, notes, labs, radiology, d/w nursing adn POA � 56 mins
Original Note:
Today's Communication/Plan
-
Change cefepime to ceftriaxone
Continue supportive measures
Assessment / Plan
Assessment / Plan
IMPRESSION: Patient is a 83-year-old female with past medical history of type 2 diabetes, hypothyroidism currently being managed for RSV and acute hypoxemic respiratory insufficiency.
PLAN:
Sepsis and acute hypoxemic respiratory insufficiency secondary to RSV with superimposed viral pneumonia versus bacterial pneumonia
Previously on 4 L, now on room air, saturating 96%
RSV positive, flu and COVID-negative. MRSA pending
Discontinue steroids after initial dose in ER
Leukocytosis downtrending from 16.3-11.5 today
Previously on cefepime and doxycycline, transition to IV ceftriaxone and doxycycline. Plan to transition to p.o. meds when ready.
Continue incentive spirometry
Continue albuterol inhaler
Patient remains afebrile
Cough
Continue Robitussin and Tessalon Perles as needed
Continue lozenge use
Continue fluid intake and warm liquids for discomfort relief
RSV positive
Continue supportive care
Type 2 diabetes
Continue sliding scale insulin
Hypothyroidism
Continue Synthroid
Anxiety
Continue Ativan IV prn
Continue sertraline 25 mg p.o. at bedtime
Hypertension
Continue IV Hydralazine 5 mg prn
Full code
Diabetic diet
DVT prophylaxis�Lovenox
Anticipated Discharge: 24 - 48 hours
Subjective/Interval History
-
Date of Service: August 25, 2024
Patient is an 83-year-old female with history of type 2 diabetes, hypothyroidism who presented to [facility] with cough and shortness of breath. She is currently RSV positive, flu and COVID-negative. Overnight she reports not being able
to sleep, coughing all night. She states that the only thing that gives her mild relief is hot tea and oatmeal. She states she has had poor oral intake and is losing weight.
Objective Data
-
Labs:
Laboratory Results
08/25/24
07:14
WBC 11.5 H
Hgb 15.9
Hct 46.8
Plt Count 204
Sodium 136
Potassium 3.7
Chloride 106
Carbon Dioxide 20 L
BUN 32 H
Creatinine 0.8
Glucose 129 H
Calcium 8.7
Vital Signs:
Vital Signs
Temp Pulse Resp BP Pulse Ox
97.9 F 80 18 150/76 96
08/25/24 07:47 08/25/24 07:47 08/25/24 07:47 08/25/24 07:47 08/25/24 07:47
I&O
08/24/24 08/25/24 08/26/24
06:59 06:59 06:59
Intake Total 240 / 240
Output Total 100 / 100 300 / 300
Balance 140 / 140 -300 / -300
Review of Systems
-
History Source: Patient
Constitutional: Reports Weight Loss, No Appetite and Sleep Disturbance
EENT: Reports Sore Throat
Respiratory: Reports Cough and Trouble Breathing
Cardiac: Reports No Symptoms
Abdomen/GI: Reports No Symptoms
Genitourinary: Reports No Symptoms
Musculoskeletal: Reports No Symptoms
Neuro: Reports Weakness
Psych: Reports Anxious
Physical Exam
-
General: Comfortable and Conversant
Respiratory: Clear to Auscultation and Other (Some coarse breath sounds)
Cardiac: Regular Rhythm and S1/S2
GI: Soft, Nontender and Nondistended
Musculoskeletal: No Edema
Skin: Warm and Dry
Neuro: AO x 3
Psych: Anxious
Data Reviewed
-
CT Scan: Report Reviewed by me
Labs: Labs Reviewed by me and Discussed with Physician
Old Records: Reviewed
[2024-08-25] MEDS: NOVOLOG FLEXPEN-LOW RESISTANCE SC ×2 (09:27→17:08)
[2024-08-25] MEDS: ZOLOFT PO (09:40)
[2024-08-25] MEDS: VIBRAMYCIN 100 MG PO ×2 (09:41→20:01)
[2024-08-25] MEDS: ROBITUSSIN 100 MG PO ×2 (09:53→20:09)
[2024-08-25 11:24] LABS: Glucose - Point of Care 157 mg/dl (70-99)
[2024-08-25] MEDS: NOVOLOG FLEXPEN-LOW RESISTANCE 1 UNITS SC (12:12)
--- NOTE | 2024-08-25 12:18 | CM ---
CM reviewed pt with the resident
ADC 2-3 days
Therapy following with VN vs no needs recs
CM will follow for possible home O2 needs as pt on 2L this AM
Discharge Disposition- home, follow for VN and home O2 needs
[2024-08-25 15:19] VITALS: BP 158/76
[2024-08-25 16:17] LABS: Glucose - Point of Care 130 mg/dl (70-99)
[2024-08-25] MEDS: LOVENOX 40 MG SC (17:16)
[2024-08-25] MEDS: ROCEPHIN 1000 MG IV (17:46)
[2024-08-25] MEDS: TESSALON PERLES 100 MG PO (20:09)
[2024-08-25 22:03] LABS: Glucose - Point of Care 145 mg/dl (70-99)
[2024-08-25] MEDS: ATIVAN 0.25 MG IV (22:45)
[2024-08-25 23:39] VITALS: BP 168/78
[2024-08-26] MEDS: SYNTHROID 100 MCG PO (04:51)
[2024-08-26 07:36] LABS: Glucose - Point of Care 132 mg/dl (70-99)
[2024-08-26 07:41] VITALS: BP 159/77
[2024-08-26 08:10] LABS: Hematocrit 49.3 % (37.0-47.0); Hemoglobin 16.8 g/dL (12.0-16.0); Mean Corp Hgb Conc. 34.1 g/dL (33.0-37.0); Mean Corpuscular Hgb 29.4 pg (27.0-31.0); Mean Corpuscular Volume 86.2 fL (81.0-99.0); Mean Platelet Volume 9.8 fL (7.4-10.4); Platelet Count 234 10^3/uL (130-400); Red Blood Cell Count 5.72 10^6/uL (4.20-5.40); Red Cell Dist. Width 13.2 % (11.5-14.5); White Blood Cell Count 10.1 10^3/uL (4.8-10.8)
[2024-08-26 08:22] LABS: ALT (SGPT) 23 U/L (0-35); AST (SGOT) 30 U/L (14-36); Albumin 3.7 g/dl (3.5-5.0); Alkaline Phosphatase 61 U/L (38-126); Blood Urea Nitrogen 22 mg/dl (7-17); Calcium 8.9 mg/dl (8.4-10.2); Carbon Dioxide 24 mmol/L (22-30); Chloride 104 mmol/L (98-107); Estimated Creatinine Clearance 45 ml/min; Glucose 134 mg/dl (70-99); Potassium 3.8 mmol/L (3.5-5.1); Sodium 139 mmol/L (135-145); Total Bilirubin 0.6 mg/dl (0.2-1.3); Total Protein 6.4 g/dl (6.3-8.2); eGFR > 60.00
[2024-08-26] MEDS: NOVOLOG FLEXPEN-LOW RESISTANCE SC ×2 (08:45→11:45)
[2024-08-26] MEDS: ZOLOFT 25 MG PO (09:54)
[2024-08-26] MEDS: VIBRAMYCIN 100 MG PO (09:54)
--- NOTE | 2024-08-26 10:02 | W.PN.HOSP.TC ---
Addendum entered and electronically signed by Leighton Ambriz MD 08/27/24 00:21:
Attending Addendum-
I saw and evaluated the patient. I reviewed the resident�s note and agree with findings and plan as documented in the resident�s note. Sub: Cough and SOB gratly improved. ok with going home today. denies fevers chills Full 12 point ROS reviewed and
negative except as documented Exam: Vitals reviewed in chart GEN-NAd heart RRR no M/R/G lungs scattered rhonchi-mild, abd soft LE no edema
# Sepsis and acute hypoxemic respiratory insufficiency due to acute viral (RSV) with superimposed bacterial CAP:
-RSV POS
-DCd Steroids
-procal elevated
-was on 4L NC O2, now 94% on RA- resolved
-leukocytosis trending down
-Strep and Legionella urinary Ag, Flu/COVID-NEG
-changed Cefepime->Rocephin cont Doxy, transition to PO abx on DC x 7 days
Other problems:
H/O DM- not on meds-HBa1c 6.0 - cont SSI and diet control for now
Hypothyroidism: Continue Levoxyl
depression- cont sertraline
Minimally elevated troponin represents nonischemic myocardial injury
Obesity due to excess calories
FULL/Lovenox
Dispo DC home patient lives alone son lives close by with VN
Time spent coordinating care, DC planning, review of DC plan of care with resident, transition of care, review of records, med rec/scripts sent electronically, consults, notes, d/w consultants, nursing, family, and CM� 34 mins
Original Note:
Today's Communication/Plan
-
Transition to oral antibiotics
Assessment / Plan
Assessment / Plan
IMPRESSION: Patient is a 83-year-old female with past medical history of type 2 diabetes, hypothyroidism currently being managed for RSV and acute hypoxemic respiratory insufficiency.
PLAN:
Sepsis and acute hypoxemic respiratory insufficiency secondary to RSV with superimposed bacterial pneumonia
Previously on 4 L, now on room air, saturating 96%
RSV positive, flu and COVID-negative. MRSA negative
Discontinue steroids after initial dose in ER
Leukocytosis downtrending from 16.3-11.5 today
Previously on cefepime and doxycycline, transition to IV ceftriaxone and doxycycline yesterday. Plan to transition to p.o. meds today at discharge
Continue incentive spirometry
Continue albuterol inhaler
Patient remains afebrile
Cough
Continue Robitussin and Tessalon Perles as needed
Continue lozenge use
Continue fluid intake and warm liquids for discomfort relief
RSV positive
Continue supportive care
Type 2 diabetes
Continue sliding scale insulin
Hypothyroidism
Continue Synthroid
Anxiety
Continue Ativan IV prn
Continue sertraline 25 mg p.o. at bedtime
Hypertension
Continue IV Hydralazine 5 mg prn
Full code
Diabetic diet
DVT prophylaxis�Lovenox
Anticipated Discharge: Within 24 hours
Subjective/Interval History
-
Date of Service: August 26, 2024
Patient is a 83-year-old female with past medical history of type 2 diabetes, hypothyroidism currently being managed for RSV and acute hypoxemic respiratory insufficiency.Overnight patient reports that she did not sleep well. She expressed that she
continued to cough. She was able to keep her food down and denies any chest pain or vomiting. She would like to go home today.
Objective Data
-
Labs:
Laboratory Results
08/26/24
06:58
WBC 10.1
Hgb 16.8 H
Hct 49.3 H
Plt Count 234
Sodium 139
Potassium 3.8
Chloride 104
Carbon Dioxide 24
BUN 22 H
Creatinine 0.8
Glucose 134 H
Calcium 8.9
Total Bilirubin 0.6
AST 30
ALT 23
Alkaline Phosphatase 61
Vital Signs:
Vital Signs
Temp Pulse Resp BP Pulse Ox
97.7 F 67 18 159/77 96
08/26/24 07:41 08/26/24 07:41 08/26/24 07:41 08/26/24 07:41 08/26/24 07:41
I&O
08/25/24 08/26/24 08/27/24
06:59 06:59 06:59
Intake Total 1859
Output Total 300 / 300
Balance -300 / -300 1859
Review of Systems
-
History Source: Patient
Constitutional: Reports Sleep Disturbance
EENT: Reports No Symptoms Reported
Respiratory: Reports Cough
Cardiac: Reports No Symptoms
Abdomen/GI: Reports No Symptoms
Genitourinary: Reports No Symptoms
Physical Exam
-
General: Well Developed, Well Nourished, Comfortable and Conversant
HEENT: Normocephalic and Atraumatic
Respiratory: Rhonchi
Cardiac: Regular Rhythm and S1/S2
GI: Soft, Nontender and Nondistended
Skin: Warm and Dry
Neuro: AO x 3
Psych: Calm
Data Reviewed
-
Labs: Labs Reviewed by me and Discussed with Physician
Old Records: Reviewed
[2024-08-26 10:54] LABS: % Basophils 0.4 % (0-2); % Immature Granulocytes 0.7 % (0-0.5); % Lymphocytes 33.3 % (20.5-51.1); % Monocytes 13.2 % (1.7-9.3); % Neutrophils 50.4 % (42.2-75.2); Absolute Eosinophils 0.2 10^3/uL (0-0.7); Absolute Immature Granulocytes 0.1 10^3/uL (0-0.05); Absolute Lymphocytes 3.4 10^3/uL (1.2-3.4); Absolute Monocytes 1.3 10^3/uL (0.1-0.6); Absolute Neutrophils 5.1 10^3/uL (1.4-6.5); Nucleated Red Blood Cells % 0 %
[2024-08-26 11:23] LABS: Glucose - Point of Care 121 mg/dl (70-99)
[2024-08-26 11:35] VITALS: BP 167/88; PULSE 73; O2SAT 94
--- NOTE | 2024-08-26 12:02 | CM ---
Patient seen bedside.
PT recommending home with home care.
Patient agreed to VN and would like [facility].
MD aware.
IMM completed.
Plan: home with [facility], son will transport.
--- NOTE | 2024-08-26 12:16 | VNURNOTE ---
Home Health Liaison met with patient at bedside to discuss [facility] nurse/therapy, visits, schedule and homebound status. Patient is agreeable and understands that visits at home will be 2-3 x per week to assess and teach medical management. [facility]
brochure provided with contact information. Patient is aware that [facility] will contact them for start of care in 1-2 days after discharge from .
[facility] referral completed in Care Port.
[2024-08-26 13:15] VITALS: BP 177/84
--- NOTE | 2024-08-26 13:58 | W.DCSUMMARY ---
Addendum entered and electronically signed by Leighton Ambriz MD 08/27/24 00:23:
Read, reviewed, and agree. See same day progress note for additional details.
Jovanni Ambriz MD
Original Note:
Documented by User: Vin Woodard DO, Resident 08/26/24 14:10
Discharge Summary
Discharge Data
Date of Admission: 08/23/24
Date of Discharge: 08/26/24
Total time spent discharging patient (in min): 50
-
Pending Results: No
Hospital Course
Discharging Physician : Leighton Ambriz MD
Disposition : Home with VN
Primary care physician : Caden Rios
Principal Discharge diagnosis : RSV with superimposed bacterial pneumonia
Hospital Course : Patient is an 83-year-old female with history of type 2 diabetes, hypothyroidism who presented to [facility] with cough and shortness of breath. She tested positive for RSV and chest CT showed bilateral apical airspace
opacities, greatest within the right upper lobe, and findings are compatible with pneumonia. She was given supplemental oxygen, initially 4L and weaned to RA by end of weekend, and albuterol. Patient was treated with IV cefriaxone and doxycyline
during admission and was discharged on PO cefdinir and doxycycline for 7 days. For symptomatic support, patient was given Tessalon pearls, Robitussin and Tylenol. Recommendations for home visiting nursing made and case management was consulted.
Patient stable and ready for DC home.
Sepsis and acute hypoxemic respiratory insufficiency secondary to RSV with superimposed bacterial pneumonia- No longer needing O2 support. Continue PO doxycyline and cefdinir for 7 days. Continue albuterol inhaler, tesselon perles and lozenge use at
home for symptomatic support.
Cough
Continue Robitussin, Tessalon Perles and lozenge use as needed
Type 2 diabetes
Continue Farxiga
Hypothyroidism
Continue Synthroid
Anxiety
Continue sertraline 25 mg p.o. at bedtime
Important imaging findings :
Chest CT 08/23/24
IMPRESSION: Examination is negative for pulmonary embolism.
Bilateral apical airspace opacities, greatest within the right upper lobe, and findings are compatible with pneumonia.
Small focus of confluent opacity within the right upper lobe, which is most likely a confluent focus of pneumonia. Continued follow-up is recommended to look for resolution of presumed changes of pneumonia, and exclude underlying neoplasia.
There are enlarged right hilar and mediastinal lymph nodes, most likely reactive inflammatory lymph nodes.
No significant pleural effusions are identified.
Coronary artery calcifications are present. Please correlate with symptoms of and risk factors for coronary artery disease, with further workup as clinically appropriate.
Mild fatty infiltration of the liver in the visualized upper abdomen.
Discharge Plan
-
Patient Disposition: Home (Routine Discharge)
Discharge Diagnosis/Procedures: bacterial pneumonia superimposed on RSV infection
Condition: Fair
Diet: No restrictions and As tolerated
Additional Diets: continue to drink warm fluids and soft solids for symptomatic relief
Activity: As tolerated
Driving Restrictions: As prior to admission
Bathing Restrictions: None
Other Services: VN
Referrals:
Caden Rios DO [Family Provider] - in one to two weeks
Additional Discharge Medication Instructions: please continue to take Robitussin, lozenges and tylenol as needed
Prescriptions:
New
benzonatate 100 mg Capsule
100 mg PO TIDPRN PRN (Reason: cough) 14 Days Qty: 30 0RF
doxycycline hyclate 100 mg Capsule
100 mg PO Q12 7 Days Qty: 14 0RF
sertraline 25 mg Tablet
25 mg PO DAILY 30 Days Qty: 30 2RF
albuterol sulfate 90 mcg/actuation Hfa Aerosol Inhaler
2 puff inhalation R Q4HPRN PRN (Reason: wheezing) Qty: 1 0RF
cefdinir 300 mg capsule
300 mg PO BID Qty: 14 0RF
Continued
Farxiga
Rx Instructions:
pt doesn't know mg
levothyroxine [Synthroid] 100 mcg Tablet
100 mcg PO DAILY
Discontinued
doxycycline hyclate 100 mg capsule
100 mg PO BID 10 Days Qty: 20 0RF
Patient Comments:
was ordered on 08/22 but never started
methylprednisolone [Medrol (Sridhar)] 4 mg tablets,dose pack
See Rx Instructions .ROUTE .COMPLEX Qty: 21 0RF
Patient Comments:
was ordered on 08/22 but never started
Rx Instructions:
for 6 days
Discharge Orders:
Discharge Patient (As Directed); Ordered 08/26/24
Ordered By: Vin Woodard
Discharge Date and Time
Discharge Date/Time: 08/26/24 14:18
Print Language: ARGENTINE

Documented by User: Leighton Ambriz MD 08/27/24 00:17
Discharge Summary
Discharge Data
Date of Admission: 08/23/24
Date of Discharge: 08/27/24
Discharge Plan
-
Patient Disposition: Home (Routine Discharge)
Discharge Diagnosis/Procedures: bacterial pneumonia superimposed on RSV infection
Condition: Fair
Diet: No restrictions and As tolerated
Additional Diets: continue to drink warm fluids and soft solids for symptomatic relief
Activity: As tolerated
Driving Restrictions: As prior to admission
Bathing Restrictions: None
Other Services: VN
Referrals:
Caden Rios, DO [Family Provider] - in one to two weeks
Additional Discharge Medication Instructions: please continue to take Robitussin, lozenges and tylenol as needed
Prescriptions:
New
benzonatate 100 mg Capsule
100 mg PO TIDPRN PRN (Reason: cough) 14 Days Qty: 30 0RF
doxycycline hyclate 100 mg Capsule
100 mg PO Q12 7 Days Qty: 14 0RF
sertraline 25 mg Tablet
25 mg PO DAILY 30 Days Qty: 30 2RF
albuterol sulfate 90 mcg/actuation Hfa Aerosol Inhaler
2 puff inhalation R Q4HPRN PRN (Reason: wheezing) Qty: 1 0RF
cefdinir 300 mg capsule
300 mg PO BID Qty: 14 0RF
Continued
Farxiga
Rx Instructions:
pt doesn't know mg
levothyroxine [Synthroid] 100 mcg Tablet
100 mcg PO DAILY
Discontinued
doxycycline hyclate 100 mg capsule
100 mg PO BID 10 Days Qty: 20 0RF
Patient Comments:
was ordered on 08/22 but never started
methylprednisolone [Medrol (Sridhar)] 4 mg tablets,dose pack
See Rx Instructions .ROUTE .COMPLEX Qty: 21 0RF
Patient Comments:
was ordered on 08/22 but never started
Rx Instructions:
for 6 days
Discharge Orders:
Discharge Patient (As Directed); Ordered 08/26/24
Ordered By: Vin Woodard
Discharge Date and Time
Discharge Date/Time: 08/26/24 14:18
Print Language: ARGENTINE
== END 2024-08-26 14:18 | disposition home health service (06) | DRG 871 ==
LOC: 1 ACUTE 12:10
PROVIDERS: Student in an Organized Health Care Education/Training Program; ADMITTING PHYSICIAN Internal Medicine; ATTENDING PHYSICIAN Family Medicine; EMERGENCY PHYSICIAN Emergency Medicine; FAMILY PHYSICIAN Family Medicine
DX: A41.9 Sepsis, unspecified organism (principal); J15.9 Unspecified bacterial pneumonia; I5A Non-ischemic myocardial injury (non-traumatic); E11.9 Type 2 diabetes mellitus without complications; E03.9 Hypothyroidism, unspecified; R09.02 Hypoxemia; F41.9 Anxiety disorder, unspecified; I10 Essential (primary) hypertension; E66.09 Other obesity due to excess calories; J06.9 Acute upper respiratory infection, unspecified; B97.4 Respiratory syncytial virus as the cause of diseases classified elsewhere; R06.89 Other abnormalities of breathing; Z68.32 Body mass index [BMI] 32.0-32.9, adult; Z79.899 Other long term (current) drug therapy
CPT/HCPCS: 71275; 80048; 80053; 82805; 82962; 83036; 83605; 84145; 84484; 85025; 87040; 87070; 87449; 87502; 87807; 87899; 93005; 94640; 96361; 96374; 96375; 96376; 97116; 97162; 97530; 99285; Q9967

== ENCOUNTER 2025-05-20 00:34 | Inpatient (IN) | payer OTHER, SELFPAY ==
[2025-05-19] VITALS (8 sets, daily range): BP systolic 192–221; BP diastolic 71–100
[2025-05-19 20:44] LABS: Hematocrit 45.7 % (37.0-47.0); Hemoglobin 15.6 g/dL (12.0-16.0); Mean Corp Hgb Conc. 34.1 g/dL (33.0-37.0); Mean Corpuscular Volume 84.8 fL (81.0-99.0); Nucleated Red Blood Cells % 0 %; Platelet Count 226 10^3/uL (130-400); Red Cell Dist. Width 12.9 % (11.5-14.5)
[2025-05-19 21:03] LABS: ALT (SGPT) 21 U/L (0-35); AST (SGOT) 24 U/L (14-36); Albumin 4.5 g/dl (3.5-5.0); Alkaline Phosphatase 54 U/L (38-126); Blood Urea Nitrogen 18 mg/dl (7-17); Calcium 9.1 mg/dl (8.4-10.2); Carbon Dioxide 25 mmol/L (22-30); Chloride 108 mmol/L (98-107); Glucose 109 mg/dl (70-99); Potassium 4.4 mmol/L (3.5-5.1); Sodium 140 mmol/L (135-145); Total Protein 7.6 g/dl (6.3-8.2); eGFR > 60.00
[2025-05-19 21:49] LABS: Troponin I < 0.012 ng/ml
[2025-05-19 22:23] LABS: C-Reactive Protein < 5.00 mg/L (0.0-10.00)
--- NOTE | 2025-05-19 23:23 | ED.GENMED ---
History of Present Illness
General
Chief Complaint: Visual Problem
Source: patient and family
Time Seen by Provider: 05/19/25 21:44
History of Present Illness
History of Present Illness:
84-year-old female presents to the emergency room complaining of pounding headache which is located back of her head. She also complaining of loss of vision. When she woke this morning she noted that her vision was significantly worse than
baseline. She normally can see the numbers on a cell phone but today she was unable to do so. Also she was unable to recognize anything on the television which she can typically do. Patient is scheduled to have cataract surgery so she has not
been using her contacts. She is using glasses which are an older prescription. However she has been using these glasses for the past couple days and her vision was not as bad prior to this morning. Patient states that yesterday she was trying to
find her medical management specialist office that she became lost. She became very frustrated during the drive and felt 'like my blood pressure was tamir high'. Patient Nuys any focal weakness numbness or tingling.
Past History
Past History
ED Past Medical History: NIDDM
ED Past Surgical History: Orthopedic
Phy Exam
Physical Exam
Physical Exam:
General: Awake, Alert, Oriented X3. No acute distress.
Vitals: Hypertensive
Head: Atraumatic
Eyes: Pupils equal, EOMI
Throat: Airway intact, no exudates
Neck: Trachea midline
Lungs: Clear and equal b/l
Heart: Regular rate, no murmurs
Abd: Soft, Nontender, No pulsatile mass
Neuro: Cranial nerves intact, muscle strength equal bilaterally, cerebellar exam normal
Skin: Warm, dry, no rash
Extremities: pulses equal b/l, no edema
Course
Orders/Labs/Results
Orders:
Orders
05/19/25 20:23
Electrocardiogram (*1) Urgent
Reason for Study: Chest Pain
EKG- Treatment ONCE
05/19/25 20:31
C-Reactive Protein Urgent
Comment: ADDON
Complete Blood Count/With Diff Urgent
Comprehensive Metabolic Panel Urgent
Erythrocyte Sed Rate Urgent
Comment: ADD ON
05/19/25 21:06
Troponin I Urgent
05/19/25 21:45
Add On- LAB Urgent
Tests Added?: crp, sed rate
05/19/25 22:20
CT Head W/o Iv Contrast Urgent
Comment:
Reason For Exam: visual changes
05/19/25 23:21
Nicardipine 40 mg/200 ml [Cardene] 40 mg in 200 ml IV NOW
Initial dose in mg/hr, then titrate:: 2.5
Titrate to keep:: BP < 180/105 mmHg
Titrate by mg/hr:: 2.5 mg/hr
Frequency of titrations (minutes):: 5-15 minutes
Maximum dose in mg/hr:: 15
Begin to taper infusion when:: Remained at goal for 2hrs
Taper by mg/hr:: 2.5 mg/hr
Frequency of taper (minutes) if patient maintains goal:: every 15-30 minutes
Taper to off?: Yes
If infusion off & no longer maintaining goal:: Contact Provider
05/20/25 00:22
Admit/Transfer Patient As Directed
Co-Sign Provider:
Level of Care: Inpatient admission
Assign to:: ICU
Physician / Group: Kitty Macdonald
Diagnosis: Hypertensive emergency
Reason for Hospitalization: Hypertensive emergency
Expected length of stay greater than two midnights?: Yes
ELOS- Estimated Length of Stay in days: 3
I certify the patient meets the requirements for IP care: Yes
05/20/25 00:23
Code Status As Directed
Resuscitation Status: Full Code
PRN Pain Medication Management As Directed
May give lesser potent ordered pain med per pt: Yes
preference::
Protocol:: Medication orders for pain may be administered in a
manner that supports deferring to patient preference
when the pt is:
- Requesting an ordered lesser potent pain medication.
Least to most potent pain medications are defined
as: acetaminophen < NSAID < tramadol < opioids
(morphine, oxycodone, hydromorphone).
- Requesting a lesser dose of the same medication IF
ORDERED.
- Requesting a less intrusive route of administration
if both routes are prescribed by the provider (PO <
IV).
Abnormal Lab Results
05/19/25
20:31
Absolute Monos (auto) 0.9 H 10^3/uL
(0.1-0.6)
Chloride 108 H mmol/L
(98-107)
BUN 18 H mg/dl
(7-17)
Glucose 109 H mg/dl
(70-99)
05/19/25 20:31
05/19/25 20:31
Vital Signs
Initial and Last Documented VS:
Initial Vital Signs
Temp Pulse Resp BP Pulse Ox
98.5 F 73 16 210/100 95
05/19/25 20:20 05/19/25 20:20 05/19/25 20:20 05/19/25 20:20 05/19/25 20:20
Last Documented Vital Signs
Temp Pulse Resp BP Pulse Ox
98.5 F 74 18 206/80 96
05/19/25 20:20 05/20/25 00:20 05/20/25 00:20 05/20/25 00:20 05/20/25 00:20
Procedures
Other
Indication for procedure:: Hypertensive emergency
Procedure completed by: Myself
Consent form signed: Yes
Additional Procedure:
Arterial line
Right wrist prepped with chlorhexidine. Radial artery pulse brisk. Rupesh's test positive. A-line placed with Salinger technique using a Arrow A-line kit. Brisk arterial blood obtained through the line. Line sutured with 3-0 Prolene. Good
waveform on the monitor.
MDM/Problems Addressed
Differential Diagnosis Includes:
Hospital hemorrhage, subdural CVA, hypertensive emergency
MDM/Problems Addressed:
Patient presents with significant hypertension and change in vision. Neurologic exam nonfocal. Examination of the eyes themselves are quite normal. CT of the head shows occipital lobe changes bilaterally consistent with PRES. nicardipine drip
started. A-line placed. Patient be admitted to the ICU
*Radiology
Radiology exam reviewed: radiology read reviewed
*Pulse Oximetry
SaO2: 97
Oxygen Mode of Delivery: Room air
Patient hypoxic: no
*EKG
Interpreted by ED Provider?: Yes
Heart Rate: 73
Rate: normal
Rhythm: sinus and PAC's
QRS Pattern: right bundle branch block
Ischemia: non-specific ST changes
*Summer School Coordinator Interpretation
Rate: normal
Interpretation: normal
Rhythm: PAC's
*Critical Care Note
Total Time (30-74mins, 75-104mins- exclusive of procedures): 38 min
comment:
Critical care statement: A total of 38 minutes of critical care time was provided for this patient. This includes management of unstable vital signs, evaluation of the patient at bedside, reviewing the patient's pertinent medical records, discussion
with consultants, review of old EKGs and review of pertinent medical records. This time with separate from time utilized to perform the aforementioned documented procedures
ED Attending Note
-
Portions of this chart may have been created with voice recognition software.� Occasional wrong word or��sound alike� substitutions may have occurred due to the inherent limitations of voice recognition software.
Discharge Plan
Departure
Patient Disposition: Admit
Date of Disposition: 05/19/25
Time of Disposition: 23:24
Admit to: ICU
Presentation/result/management discussed w/ accepting MD/DO: Hospitalist
Condition: Serious
Discharge Problem:
Hypertensive emergency, PRES (posterior reversible encephalopathy syndrome)
Interventions
Interventions:
*Risk Screen - Suicide Last Done: 05/19/25 20:22
*General Assessment Last Done: 05/19/25 21:07
*Neglect/Abuse Screening Last Done: 05/19/25 20:22
*ED- Fall Risk Assessment Last Done: 05/19/25 21:07
*ED COVID-19 Vaccine History Last Done: 05/19/25 21:07
*ED Influenza Vaccine History Last Done: 05/19/25 21:07
ED- Neurological Assessment Last Done: 05/19/25 21:07
ED-EENT Assessment Last Done: 05/19/25 21:07
[2025-05-19] MEDS: CARDENE 200 IV (23:48)
[2025-05-20] VITALS (31 sets, daily range): BP systolic 131–206; BP diastolic 49–148; PULSE 66; O2SAT 97; BMI 32.1
--- NOTE | 2025-05-20 00:08 | HPS.HSE ---
Family Physician
-
Family Physician: Caden Rios
Chief Complaint
-
vision problems
History of Present Illness
Ms. Sierra Hutchins is a 84 yo woman with hx DM II, hypothyroidism presents to the ER with headache and abnormal peripheral vision in both eyes.
Patient states that she used to be on amlodipine years ago but stopped and her blood pressure hasn't been severely elevated at outpatient appointments. She woke up with a severe headache and difficulty seeing. Upon arrival to the ER she was noted
to be with BP 200's/100. She was started on a Nicardipine gtt in the ER with improvement in pressures to 180's-190's. On my exam patient is noting that her headache is improving and vision is slowly improving. She is very anxious and
uncomfortable.
No recent fevers/chills. No current chest pain or shortness of breath. No abdominal pain. No LE swelling.
Medical History
Past Medical History
Past Medical History: Reports Hypothyroidism and NIDDM
Past Surgical History: Reports Orthopedic
Social History
Tobacco: Non-smoker
Alcohol: None
Drug: None
Personal: Single
Employment: Retired
Family History
Family History: Not pertinent
Allergies / Home Medications
Allergies reflects when Allergies were last updated in [facility] [employer].
Home Medications with original date entered in [employer]
Allergy/Medication List:
*med rec not complete
Review of Systems
-
History Source: Patient
A 12 point ROS was completed and negative except as noted: Yes
Physical Exam
Vital Signs
Vital Signs
Temp Pulse Resp BP Pulse Ox
98.5 F 68 23 195/78 97
05/19/25 20:20 05/19/25 23:55 05/19/25 23:55 05/19/25 23:55 05/19/25 23:55
Physical Exam
General: Other (appears anxious )
HEENT: PERRLA
Respiratory: Clear; No Wheezes
Cardiac: S1/S2 and Regular Rhythm
GI: Soft, Non Tender and Non Distended
Musculoskeletal: No Edema
Skin: Warm and Dry; No Rash
Neuro: AO x 3
Psych: Calm
Laboratory Results
-
05/19/25 20:
05/19/25:
Laboratory Results
Total Bilirubin 0.4 mg/dl (0.2-1.3) 05/19/25:
AST 24 U/L (14-36) 05/19/25
ALT 21 U/L (0-35) 05/19/25:
Alkaline Phosphatase 54 U/L (38-126) 05/19/25:
Troponin I < 0.012 ng/ml 05/19/25 21:06
Data Reviewed
-
Diagnostic Radiology: Report Reviewed by me
Lab Data: Labs Reviewed by me
Impression/Plan
-
Ms. Sierra Hutchins is a 84 yo woman with hx DM II, hypothyroidism presents to the ER with headache and abnormal peripheral vision in both eyes.
Triage VS: T 98.5, P 73, RR 16, BP 210/100, SpO2 95%
LABS: WBC 9.8, Hg 15.6, PLT 226, Na 140, K+ 4.4, CO2 25, BUN 18, Cr 0.8, liver enzymes WNL, CRP < 5, ESR 17, Trop < 0.012
CT Head
IMPRESSION:
Subtle decreased density within the posterior occipital lobes bilaterally, fairly symmetric between right and left. 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
As warranted, further evaluation with MRI of the brain could be considered.
Hypertensive Emergency
Posterior Reversible Encephalopathy Syndrome
-patient started on IV Nicardipine in the ER
-admit to ICU
-continue IV Nicardipine with goal SBP 180 overnight with gradual lowering < 160/110 tomorrow; start oral blood pressure regimen tomorrow
-neuro checks overnight
-MRI Brain tomorrow AM
-Recovery Engineer consult
-TTE
-PT/OT
-F/U renin/aldosterone ratio
Hypothyroidism
-BRADDER Synthroid 100mcg daily
DM II
-BRADDER Januvia
-Diabetic Diet
-ISS low
DVT PPx SCD
FULL CODE
*MED REC not compete, family showed me patient takes Januvia 100mg daily and Synthroid 100mcg daily
Total Critical Care Time 60 minutes. I was immediately available to the patient and staff. I personally examined, reviewed labs, diagnostic images/reports, interpretations, treatment plans, discussed patient care with other providers and family
or caregivers (if patient is unable to make decisions), entered orders as appropriate and documented the medical record.
[2025-05-20 02:23] LABS: Glucose - Point of Care 152 mg/dl (70-99)
[2025-05-20 04:05] LABS: Hematocrit 45.9 % (37.0-47.0); Hemoglobin 15.2 g/dL (12.0-16.0); Mean Corp Hgb Conc. 33.1 g/dL (33.0-37.0); Mean Corpuscular Volume 86.6 fL (81.0-99.0); Nucleated Red Blood Cells % 0 %; Platelet Count 213 10^3/uL (130-400); Red Cell Dist. Width 12.8 % (11.5-14.5)
[2025-05-20 04:13] LABS: INR 1.03; PT 13.8 Sec (11.4-14.6)
[2025-05-20 04:14] LABS: APTT 29.1 Sec (23.4-35.0)
--- NOTE | 2025-05-20 04:16 | PTCARENOTE ---
Received pt from ED RN, pt pulled over from the stretcher to our bed. Pt is AAOx3, confused/forgetful, restless, neurological checks Q4 (see worklist). Pts vision still abnormal, pt is only able to see big objects/shadows, unable to read. NSR on the
monitor. Cardene gtt at 2.5 mcgs, goal SBP 140-160s (see worklist). Pt on RA O2 sat 96%, lungs clear. Pt cont of urine, BP provided. Pt removing BP cuff, states 'I want everything removed for 30 minutes, so I can get some sleep', pt frequently
reminded she is in the ICU and needs continuous monitoring, education provided. CHG bath provided. Bed alarm in place. Call louis in reach. Safe environment maintained.
[2025-05-20 04:25] LABS: Blood Urea Nitrogen 14 mg/dl (7-17); Calcium 8.8 mg/dl (8.4-10.2); Carbon Dioxide 23 mmol/L (22-30); Chloride 107 mmol/L (98-107); Estimated Creatinine Clearance 53 ml/min; Glucose 185 mg/dl (70-99); Magnesium 2.1 mg/dl (1.6-2.3); Potassium 4.3 mmol/L (3.5-5.1); Sodium 138 mmol/L (135-145); eGFR > 60.00
[2025-05-20 04:34] LABS: Troponin I < 0.012 ng/ml
--- NOTE | 2025-05-20 04:43 | PTCARENOTE ---
Received pt from ED RN, pt pulled over from the stretcher to our bed. Pt is AAOx1, confused/forgetful, restless, neurological checks Q4 (see worklist). Pts vision still abnormal, pt is only able to see big objects/shadows, unable to read. NSR on the
monitor. Cardene gtt at 2.5 mcgs, goal SBP 140-160s (see worklist). Pt on RA O2 sat 96%, lungs clear. Pt cont of urine, BP provided. Pt removing BP cuff, states 'I want everything removed for 30 minutes, so I can get some sleep', pt frequently
reminded she is in the ICU and needs continuous monitoring, education provided. CHG bath provided. Bed alarm in place. Call louis in reach. Safe environment maintained.
[2025-05-20] MEDS: TYLENOL 650 MG PO ×2 (04:53→18:23)
[2025-05-20] MEDS: TUMS CHEWABLE TABLET 400 MG PO ×2 (04:54→21:51)
[2025-05-20] MEDS: SYNTHROID 100 MCG PO (05:41)
[2025-05-20 07:56] LABS: Glucose - Point of Care 149 mg/dl (70-99)
--- NOTE | 2025-05-20 07:56 | CON.INTV ---
Consultation
Consultation Request
Date/Time Consultation Requested: 05/20/25: 00:08
Date/Time Consultation Performed: 05/20/25, 08:00
Medical History
-
Chief Complaint: blurry vision, HTN emergency
History of Present Illness:
Patient is an 84yo F with a pmh of T2DM and hypothyroidism who p/w headache and worsened/blurry vision, found to have BP 210/[address] head c/w PRES.
Pt woke up with severe headache and difficulty seeing. The day prior, she had become lost/confused going to a doctor's office that she typically frequented. States she became very anxious/agitated, and the next am had her STREET & visuals. States that
vision changes aren't 'blurriness' - they are 'problems with numbers.' Is able to see people and objects but couldn't understand/see the numbers on her cell phone or the TV with her glasses on. Denied any focal weakness, numbness, tingling, CP, SOB,
n/v, abd pain. States she previously took amlodipine ('years ago') but stopped when her BP hadn't been severely elevated at outpatient appointments. States that her BP has been wnl at recent PCP appts.
On presentation to the ED, BP 210/100. T 98.5, HR 73, RR 16, SpO2 95%. WBC 9.8, Hg 15.6, PLT 226, Na 140, K+ 4.4, CO2 25, BUN 18, Cr 0.8, liver enzymes WNL, CRP < 5, ESR 17, Trop < 0.012. Neuro exam was nonfocal. Fundoscopic exam wnl. CT head
demonstrated 'Subtle decreased density within the posterior occipital lobes bilaterally, fairly symmetric between right and left. Findings most likely represent posterior reversible encephalopathy syndrome (PRES).'
She was started on a Nicardipine gtt in the ED with BP improvement to 180's-190's systolic. A line placed. Pt endorsed some improvement in STREET and vision. Admitted to ICU for further mgmt.
Past Medical History
Past Medical History: Hypothyroidism and NIDDM
Social History
Tobacco: Non-smoker
Drug: None
Living: Alone
Family History
Family History: Reviewed & Not Pertinent
Allergies / Home Medications
Allergies
Allergy/AdvReac Type Severity Reaction Status Date / Time
No Known Allergies Allergy Verified 08/22/24 14:15
Home Medications
�Medication �Instructions �Recorded �Confirmed �Last Taken �Type
Farxiga 08/23/24 Unknown History
levothyroxine 100 mcg tablet 100 mcg PO DAILY Thyroid 08/23/24 08/23/24 08/22/24 History
(Synthroid)
albuterol sulfate 90 mcg/actuation 2 puff inhalation R Q4HPRN PRN 08/26/24 Unknown Rx
aerosol inhaler wheezing #1 g
benzonatate 100 mg capsule 100 mg PO TIDPRN PRN cough 14 days 08/26/24 Unknown Rx
#30 caps
cefdinir 300 mg capsule 300 mg PO BID #14 caps 08/26/24 Unknown Rx
doxycycline hyclate 100 mg capsule 100 mg PO Q12 7 days #14 caps 08/26/24 Unknown Rx
sertraline 25 mg tablet 25 mg PO DAILY 30 days #30 tabs 08/26/24 Unknown Rx
Review of Systems
-
History Source: Patient
All other systems: Negative unless noted (denies STREET; denies lightheadedness; denies SOB, CP; denies blurry vision; endorses inability to read TV screen, endorses inability to 'use numbers' on TV remote or cell phone; endorses word finding
difficulty; anxiety )
Vitals / Labs / Diagnostic Testing
Vital Signs
Temp Pulse Resp BP Pulse Ox
97.6 F 64 18 138/85 96
05/20/25 07:14 05/20/25 07:00 05/20/25 07:00 05/20/25 04:41 05/20/25 04:01
Lab Data
05/20/25 03:41
05/20/25 06:00
Laboratory Results
05/20/25 05/20/25
02:13 03:41
PT Cancelled 13.8
INR Cancelled 1.03
APTT Cancelled 29.1
Diagnostic Testing:
Physical Exam
-
HEENT: Normocephalic and Anicteric
Cardiovascular: Regular Rhythm
Respiratory: Clear and Non-Labored Respirations
GI: Soft and Non Distended
Neurology: Awake, Alert, No Motor Deficits, Other (per RN, unable to find food on plate until oriented to it, then able to feed self; per RN, pt unable to state names of common objects on paper, word-finding difficulty) and Other (peripheral vision
intact to movement but not to details (unable to accurately report numbers held up on hands in peripheral vision bilaterally); states she is unable to read the words on TV screen in room (would typically be able to))
Skin: Warm and Dry
General: Comfortable
Assessment
-
Sierra Hutchins is an 84yo F with a pmh of NIDDM and hypothyroidism who p/w headache and worsened/blurry vision, found to have BP 210/[address] head c/w PRES, now improving s/p nicardipine IV.
#HTN emergency
#Vision disturbances/anomia/confusion likely 2/2 HTN encephalopathy vs. ischemic CVA
#PRES
See hx of presentation above. Pt with BP 210/100 on admission. S/p nicardipine gtt started 05/19. Unknown etiology: denies drug use, no recent med changes, K wnl (less likely hyperaldost), kidney fxn wnl, no cushingoid sx, hypothyroidism controlled
on synthroid, no missed meds, no drug use. Pt may be unreliable historian re: her recent BP levels. Precipitating event seems to be episode of stress/anxiety after getting lost, although that may have been caused by beginning
confusion/encephalopathy w already-elevated BP. Pt sx of peripheral vision loss, acalculia, word-finding difficulty/anomia/agnosia may be 2/2 HTN encephalopathy/PRES vs. CVA in s/o ischemia/HTN emergency.
Today: BP 130-150s after stopping IV nicardipine ~30min
- Convert nicardipine IV to losartan 25mg PO daily today
- Pending MRI brain
- Renin/aldosterone ratio pending
- Monitor for neuro changes
- Consult PT/OT, SLT
- Complete eval for HTN emergency, pending:
- TTE
- CTA head/neck
- CXR
- UA
#Chronic
- Hypothyroidism - continue Synthroid 100mcg daily
- T2DM - continue januvia, low ISS
#Global
- DVT ppx: lovenox
- Diet: diabetic
- Code: full
- Dispo: likely downgrade to IMU later today, pending CTA w/u & BP stable on PO losartan
Data Reviewed
-
Radiology: Report reviewed by me
CT Scan: Report reviewed by me
Labs: Labs reviewed by me
Critical Care Time (in minutes): 45
Total Time Spent with Patient (in minutes): 15
[2025-05-20] MEDS: NOVOLOG FLEXPEN-LOW RESISTANCE SC ×3 (08:09→18:07)
[2025-05-20 08:33] LABS: Glycohemoglobin (HgbA1c) 6.2 % (4.0-5.6)
--- NOTE | 2025-05-20 09:00 | PTCARENOTE ---
Rec'd pt at 0700 resting in bed- initially sleeping but does awaken easily to verbal stimuli. Neuro check completed with offgoing shift. NAILA at 2mm. Alert and oriented x3- knew it was May and that she is in [facility]. Is anxious about
what happened to her and if she is going to get better. Support given. Pt with sl issue with far peripheral vision but overall states she can see objects clearly. That being said does seem to have both expressive and receptive aphasia. Seems to see
objects but cannot identify or say what they are. When asked to identify the chair or reyes on the NIH scale- talked about the picture looking like a santo day. Could not read words shown to her. Speech is clear. ZHANG. Denies numbness or tingling.
Denies headache or dizziness. Does admit to some chronic back pain. Skin is pink wm and dry. Some MASD in the groin. Respires are unlabored on RA with sats of 96%. BS are clear. Monitor SR. R radial a line in place. Zeroed and recalibrated. Site
wnl. Overall congruent with cuff BP. Waveform as documented. Rec'd pt on IV Cardene at 2.5 mcg. BP in the 150's_ Cardene turned off at 0820. + pulses. No edema. Abd is soft with + BS. Admitted to feeling hungry. Denies nausea. Was unable to void on
the bedpan- OOB to the bsc for yellow urine. Per pt abd could feel it-pt does have a prolapsed bladder. Capped int intact L ac. Plan of care reviewed and call missy in reach. Ready to eat breakfast but needed to be shown and explained what was on her
plate.
[2025-05-20] MEDS: JANUVIA 100 MG PO (09:32)
--- NOTE | 2025-05-20 09:43 | CON.NEURO4 ---
Addendum entered and electronically signed by Jos Lazcano MD 05/20/25 13:38:
Studies reviewed.
I have personally examined the patient. I reviewed and agree with the TEST WORKER's Note.
My addenda:
Awake, alert, interactive. No acute distress.
Speech intact.
Follows 2-step requests w/o difficulty. No tremor. Moderate difficulty with serial sevens and serial threes
Extra-ocular movements grossly intact.
Facial movements full and symmetric. Hearing intact to normal conversational volume.
Normal UE movements bilaterally.
Neck: full ROM.
Chest: no dyspnea
Heart: no JVD
Ext: (-) Clubbing, (-) Cyanosis, (-) Edema
IMPRESSIONS/RECOMMENDATIONS:
Abrupt onset of change in mental status and visual disturbance. 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
unclear if the patient also had acute ischemic strokes.
Check MRI of brain for completeness as the patient is continue to have symptomatology despite improvement in blood pressure control and evaluate for acute ischemic strokes
Consider initiation of aspirin
Begin vitamin B12 replacement due to low levels
Rehabilitation evaluation and treatment
Consider thiamine replacement
Consider evaluation for less common vitamin deficiencies including vitamin A and vitamin E
D/W patient
All questions answered.
Will continue to follow patient.
Original Note:
Documented by User: Michelle Vail NP 05/20/25 13:06
Consultation - Neurology 4
-
CONSULTING PHYSICIAN: Jos Lazcano MD
REFERRING PHYSICIAN: Hospitalists/Dr. Macdonald
DICTATED BY: FELI Holt
DATE/TIME OF REQUEST: 05/20/25
DATE/TIME OF CONSULTATION: 05/20/25
Reason for Consultation: Vision changes, confusion
History of Present Illness:
This is an 84-year-old right-handed female who has presented to the hospital on 05/19/25 with report of confusion and visual disturbance. Patient reports that two days ago on 05/18/25 she had a doctor's appointment around 1400 at an office she has
been going to for years. Upon driving to the appointment, she couldn't remember how to get there and couldn't figure out how to use her phone to navigate. She went to bed around midnight that night and notes that bilateral eyes were hurting at that
time. She reports waking up yesterday morning (05/19/25) around 0700 and not being able to use her phone or the TV remote because she couldn't see the numbers on them. Later in the day she tried to do laundry and was unable to figure out how to use
the washing machine, prompting her family to send her to the ER for evaluation. CT head was obtained on arrival and is suggestive of hypodensities in bilateral posterior occipital lobes, suggestive of posterior reversible encephalopathy syndrome
(PRES). Blood pressure on arrival was 210/100. Patient's blood pressure has been slowly lowered, but she denies any improvement in her symptoms. She does note that her eye discomfort resolved last night. She reports mild nausea. She denies any
dizziness, speech/swallow difficulty, numbness, or weakness.
Past Medical History: Hypothyroidism, NIDDM, HTN years ago
Surgical History: Orthopedic.
Family History: Reviewed and noncontributory.
Social History: Denies tobacco, alcohol, and illicit drug use.
Allergies: No known allergies.
Home Medications: See below.
Review of Symptoms:
Patient denies any fever, chest pain, shortness of breath, or symptoms.
�Per the HPI.�All systems are reviewed negative except above.
Physical Exam:
The patient is afebrile, abdomen is nondistended, breathing is unlabored, skin is warm and dry, no edema.
NIH Stroke Scale: Performed on 05/20/25 at 0950. Patient scored 1 points on the NIH stroke scale assessment, which were assigned as follows: See below.
Neurologic Examination:
The patient is awake, alert and oriented x3 but slow to answer questions. Mild difficulty with two-step commands. Moderate difficulty with calculations. There is mild aphasia and some perseveration. No dysarthria. On cranial nerve assessment,
pupils are 3 mm bilateral, round and reactive to light and accommodation. Visual [place] are full. Extraocular movements are intact. Facial sensations are intact and bilaterally symmetrical, there is no facial asymmetry. Hearing is intact bilaterally
to normal conversation volume. Tongue palate and uvula are midline. Sternocleidomastoid strengths are full bilaterally. Motor strengths are 5/5 bilateral upper and lower extremities on medical research [place] scale. There is no drift or involuntary
movement noted. Deep tendon reflexes are 2+ bilateral upper and lower extremities and Babinski is absent bilaterally. There was no extinction noted on double simultaneous stimulation. Coordination is intact by finger to nose bilaterally.
Lab Results: See below.
Neuro Imaging:
1. CT Head 05/19/25: Subtle decreased density within the posterior occipital lobes bilaterally, fairly symmetric between right and left. 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
2. CTA head/neck 05/20/25: Bilateral occipital lobe changes concerning for PRES syndrome versus small subacute infarcts. Slightly more distinct on the current study. The patient is scheduled for MRI of the brain today. Mild periventricular small
vessel ischemic disease. Stable. Mild atrophy. Stable. No acute vascular pathology. No evidence of M1 nor M2 occlusion. No focal stenosis.
Differentials for the patient's presentation include:
1. Confusion, vision disturbance, mild aphasia; CT head imaging is suggestive of PRES. Cannot entirely exclude ischemic stroke contributing to symptoms.
2. Hypertensive emergency.
3. Low vitamin B12 level.
Patient has the following risk factors for their symptoms: HTN emergency, age
Recommendations:
-MRI brain noncontrast pending.
-Slow lowering of blood pressure to goal normotension.
-Neurological checks and NIHSS per unit guidelines.
-PT/OT/ST evaluations.
-Vitamin B12 level is low at 183, goal is >400. Initiate cyanocobalamin 1000mcg PO daily.
-DVT prophylaxis.
Discussed patient care with: Dr. Lazcano, the patient
Vital Signs and Labs
-
Vital Signs and Labs:
Vital Signs
Temp Pulse Resp BP Pulse Ox
97.6 F 73 17 152/66 96
05/20/25 07:14 05/20/25 09:30 05/20/25 09:30 05/20/25 08:06 05/20/25 04:01
Lab Results
05/20/25 03:41
05/20/25 06:00
PT 13.8 Sec (11.4-14.6) 05/20/25 03:41
INR 1.03 05/20/25 03:41
APTT 29.1 Sec (23.4-35.0) 05/20/25 03:41
Sodium Cancelled 05/20/25 06:00
Potassium Cancelled 05/20/25 06:00
BUN Cancelled 05/20/25 06:00
Glucose Cancelled 05/20/25 06:00
Calcium Cancelled 05/20/25 06:00
Medications
-
Active Medications
Generic Name Dose Route Start Last Admin
Trade Name Freq PRN Reason Stop Dose Admin
Acetaminophen 650 mg 05/20/25 01:38 05/20/25 04:53
Acetaminophen 325 Mg Tablet PO 06/17/25 01:37 650 mg
Q4HPRN PRN Administration
mild pain/STREET/temp> 100.4F
Bisacodyl 10 mg 05/20/25 01:38
Bisacodyl 10 Mg Rectal Suppository RECTAL 06/17/25 01:37
[id number] PRN
constipation
Calcium Carbonate 400 mg 05/20/25 04:30 05/20/25 04:54
Calcium Antacid 200 Mg (Calcium Carbonate 500 Mg) Chew Tablet PO 06/17/25 04:29 400 mg
Q4HPRN PRN Administration
indigestion
Dextrose 12.5 grams 05/20/25 01:38
Dextrose 50% (0.5 Grams/Ml) 50 Ml Syringe IV 06/17/25 01:37
[id number] PRN
hypoglycemia
Protocol
Enoxaparin Sodium 40 mg 05/20/25 18:00
Enoxaparin Sodium 40 Mg/0.4 Ml Syringe SC 06/17/25 17:59
QPM JOSE
Glucagon 1 mg 05/20/25 01:38
Glucagon 1 Mg Vial IM 06/17/25 01:37
PRN PRN
hypoglycemia
Protocol
Nicardipine/Sodium Chloride 40 mg in 200 mls @ 0 mls/hr 05/20/25 01:38
Cardene IV
PER PROTOCOL JOSE
Protocol
Per Protocol
Insulin Aspart 0 units 05/20/25 07:30 10 08:09
Insulin Aspart Low Resistance 300 Units/3 Ml Pen.Injctr SC 06/17/25 07:29 Not Given
AC JOSE
Protocol
Levothyroxine Sodium 100 mcg 05/20/25 06:00 10 05:41
Levothyroxine 100 Mcg Tablet PO 06/17/25 05:59 100 mcg
DAILY @ 0600 JOSE Administration
Losartan Potassium 25 mg 05/20/25 10:00
Losartan 25 Mg Tablet PO 06/17/25 09:59
DAILY JOSE
Polyethylene Glycol 17 grams 05/20/25 01:38
Polyethylene Glycol Powder 17 Grams Packet PO 06/17/25 01:37
DAILYPRN PRN
constipation
Senna/Docusate Sodium 1 tablet 05/20/25 01:38
Docusate W/Senna (Alejandra-Colace) Tablet PO 06/17/25 01:37
BIDPRN PRN
constipation
Sitagliptin Phosphate 100 mg 05/20/25 08:00 10 09:32
Sitagliptin (Januvia) 100 Mg Tablet PO 06/17/25 07:59 100 mg
DAILY JOSE Administration
Sodium Chloride 0 flush 05/20/25 02:00
Sodium Chloride 0.9% (Flush) Syringe IV 06/17/25 01:59
PER PROTOCOL JOSE
Home Medications
�Medication �Instructions �Recorded
Farxiga 08/23/24
levothyroxine 100 mcg tablet 100 mcg PO DAILY Thyroid 08/23/24
(Synthroid)
albuterol sulfate 90 mcg/actuation 2 puff inhalation R Q4HPRN PRN 08/26/24
aerosol inhaler wheezing #1 g
benzonatate 100 mg capsule 100 mg PO TIDPRN PRN cough 14 days 08/26/24
#30 caps
cefdinir 300 mg capsule 300 mg PO BID #14 caps 08/26/24
doxycycline hyclate 100 mg capsule 100 mg PO Q12 7 days #14 caps 08/26/24
sertraline 25 mg tablet 25 mg PO DAILY 30 days #30 tabs 08/26/24
NIH Stroke Score
Subsequent NIH Scale
Date of Subsequent NIH Scale: 05/20/25
Time of Subsequent NIH Scale: 09:50
NIH Stroke Score
Level of Consciousness: 0 - Alert
LOC Questions: 0-Answers both correctly
LOC Commands: 0-Performs both correctly
Best Horizontal Gaze: 0-Normal
Visual [place]: 0=Normal, no visual loss
Facial Palsy: 0=Normal, symmetrical
Motor - Right Arm: 0=No drift 10 seconds
Motor - Left Arm: 0=No drift 10 seconds
Motor - Right Le-No drift 5 seconds
Motor - Left Le-No drift 5 seconds
Limb Ataxia: 0-Absent
Sensation: 0-Normal
Best Language: 1-Mild aphasia
Dysarthria: 0-Normal
Extinction and Inattention: 0-No abnormality
NIH Total Score:: 1
Modified Iftikhar (mRS) Score
Modified [place] Var[place] Scale (mRS): Moderate disability. Requires some help, able to walk unassisted.
Score: 3
Alteplase Contraindication
Inclusion and Exclusion criteria reviewed: Yes

Documented by User: Jos Lazcano MD 05/20/25 13:32
NIH Stroke Score
NIH Stroke Score
NIH Total Score:: 1
Modified [place] Varina (mRS) Score
Score: 3
[2025-05-20 10:17] LABS: Iron 81 ug/dl (37-170)
--- NOTE | 2025-05-20 10:20 | PTCARENOTE ---
Taken via bed for CT Head/CT Angio. Overall assessment is unchanged. Dr. Lazcano in to see pt and updated. Still with same issue of receptive and expressive aphasia. Although see an object cannot identify what the object is whether it is a word on a
page, a picture or the pancakes on her plate for breakfast- Saw that there was 'something' in front of her but could not identify them as pancakes or her beverages. No issue however noted with swallowing. Good appetite once started eating.
[2025-05-20 10:44] LABS: HDL Cholesterol 54 mg/dl; LDL Cholesterol, Calculated 152 mg/dl; Very Low Density Lipoprotein 30 mg/dl (0-30)
[2025-05-20] MEDS: COZAAR 25 MG PO (10:54)
--- NOTE | 2025-05-20 11:00 | PTCARENOTE ---
Returned from CT/ CT angio of the head. Tolerated but not well- very anxious in the scanner. Better once back in her room. OOB to the BSC to void- UA sent as ordered. Kylearten given as ordered. Currently resting.
[2025-05-20 11:33] LABS: Urine Character Clear (Clear)
[2025-05-20 12:31] LABS: Ferritin 73.0 ng/ml (11.1-264.0)
[2025-05-20 12:41] LABS: Glucose - Point of Care 115 mg/dl (70-99)
[2025-05-20 12:45] LABS: Vitamin B12 183 pg/ml (239-931)
--- NOTE | 2025-05-20 12:45 | PTCARENOTE ---
Assessment overall is unchanged. Gets easily anxious and is very forgetful as to what is going on and especially to objects and their purpose. Continues with both receptive and expressive aphasia. Need frequent direction and reassurance. Speech is
clear. VS as documented. Over past 2 hrs A line has been positional - OK given to DC and at 1245 R radial A line dc'd. Pressure held over the site. No hematoma. Automatic BP's as documented. Worked with PT and OT and is currently sitting oob in
the chair. Call louis in reach and pts son at the bedside. Chair pad on bed.
--- NOTE | 2025-05-20 13:55 | CM ---
Addendum entered by German Delarosa 05/20/25 14:11:
Patient does drive. Medicare .Gov list provided to son. Patient sleeping. He will discuss with patient and brother and provide preferences. He does not think patient will want to go to rehab.
Original Note:
Patient receiving care. Initial assessment completed with son in room. Patient lives alone in a 1 story condo with finished basement in a [place] community, B/B on main level, 3 steps to enter. [employer] patient was independent in ADL's and ambulation with a
RW at home and a wide based cane when out of the home. No other DME. No in-home services. Does not have a HC-POA. No VA benefits, No psychiatric hospitalizations. PCP is Dr. Caden Rios. Pharmacy is [facility] in [place]. Discharge POC: Therapy
recommended acute rehab. Will provide Medicare.Gov list.
--- NOTE | 2025-05-20 14:00 | PTCARENOTE ---
Assisted back to bed. Tolerated being oob but states she is tired and just wants to rest. Fair appetite for lunch. Difficult to ascertain if pt can see clearly or is just having issues with identifying objects. Pt states she can see clearly but
could not discern between a cup of lemonade vs a container of chocolate pudding but was able to feed herself once shown to her. Gait overall is steady. Does better when things are explained in detail to her. VS as documented. Call louis in reach. Bed
alarm on for pt safety.
--- NOTE | 2025-05-20 14:27 | W.PN.UPDATE ---
Update Note
Progress Note Update
Patient transitioned over to oral hypertensives.
CT angio with evidence of bilateral occipital lobe changes concerning for PRES syndrome versus small subacute infarcts.
MRI pending
Monitor BP
Neuro/Recovery Room Rn recs
[2025-05-20] MEDS: VITAMIN B-12 500 MCG PO (14:28)
--- NOTE | 2025-05-20 15:20 | PTOTSP ---
Speech Therapy Evaluation:
Swallowing:
Pt with acute risk factors for dysphagia including concern for subacute CVA versus PRES, however oropharyngeal swallow appears grossly functional at bedside. No overt s/sx of aspiration across trials. WBC WNL, pt on room air, and CXR without
pneumonia.
Language:
Given concern for CVA and MD observation of acalculia, word finding difficulty/anomia, and agnosia, the Quick Aphasia Battery (QAB) form 1 was administered. Scores were as follows:
Word comprehension: 0.00
Sentence comprehension: 10.00
Word findin.00
Grammatical construction: 8.00
Speech motor programmin.00
Repetition: not administered
Reading: not administered
QAB overall score unable to be determined given 2 subtests that were not completed. Repetition and reading subtest not administered given pt upset/refusal as test progressed.
Impression: Pt with reductions in word comprehension, word finding, and grammatical construction, however scores on these subtests negatively impacted by visual changes. For example, patient could visualize pictures/shapes on page, however was
unable to identify or name specific pictures. Pt's son reported pt has baseline visual deficits with cataracts, however suspect current presentation related to bilateral occipital lobe changes concerning for posterior reversible encephalopathy
syndrome (PRES) versus subacute infarcts.
Recommend:
1. Regular solids and thin liquids
2. Medications as tolerated
3. General aspiration precautions
4. RETAIL EQUIPMENT ASSOCIATE to follow for diet tolerance monitoring and for further assessment of language/cognition as appropriate
--- NOTE | 2025-05-20 16:34 | W.PN.UPDATE ---
Update Note
Progress Note Update
Blood pressure minh controlled off Cardene drip
Patient is anxious about MRI-a diazepam order is in place for her.
She was reassured.
At this point, we will transfer to telemetry.
Continue to monitor closely
No additional critical care recommendations
Sign off
[2025-05-20] MEDS: VALIUM INJECTION 5 MG IV (16:39)
[2025-05-20] MEDS: FLUSH (NSS) 1 FLUSH IV (16:39)
--- NOTE | 2025-05-20 16:40 | PTCARENOTE ---
Assessment is unchanged. Overall very anxious about MRI and wanted to go to an open MRI once she got home. Multiple explanations given and Dr. Birch in to speak with pt and pt agreeable to try to do the MRI. Valium 5 mg IV given as ordered pre MRI
which is scheduled for 0. Neuro assessment is unchanged- conversation at times is appropriate but pt tends to get forgetful and still with difficulty understanding vs seeing objects. Still cannot identify objects or whether something is a word or
a picture.. Speech remains clear and ZHANG. Call louis in reach.
[2025-05-20 17:59] LABS: Glucose - Point of Care 107 mg/dl (70-99)
[2025-05-20] MEDS: LOVENOX 40 MG SC (18:23)
--- NOTE | 2025-05-20 18:25 | PTCARENOTE ---
Dozed right after Valium given then awoke on way to MRI at 1700. Overall tolerated the MRI but did start to get anxious toward the end. MRI completed and pt currently back in room. Post MRI c/o a headache frontal and lateral which pt stated was from
the noise of the MRI. Neuro assessment is unchanged and pt Medicated at 1820 with Tylenol 650 mg po. Assisted oob to the commode then the chair. BP syst 185 currently . Will monitor and if remains elevated now that she is back in her room will
update MD. Pts family in and pt ready to eat dinner. Still needs direction to recognize food items on her tray. Pt had a piece of bread on her tray and when asked if she could show me the bread she could not find/recognize it despite it being right
in front of her. Call louis remains in reach.
[2025-05-20] MEDS: APRESOLINE 10 MG IV (20:50)
[2025-05-20] MEDS: VALIUM INJECTION 2 MG IV (22:30)
[2025-05-20 23:10] LABS: Glucose - Point of Care 130 mg/dl (70-99)
--- NOTE | 2025-05-20 23:27 | PTCARENOTE ---
Received pt from chantel ZAMORA. Pt is AAOx2 (time), confused/forgetful/restless/anxious, mild aphasia unsure if that is related to the loss of her vision and unable to see the objects. NIH and neuro checks per protocol. NSR w/ BBB, weak pedals. PRN
Hydralazine given for SBP >180 (see MAR). Pt on RA O2 sat 96%, lungs clear. Abd obese. Pt c/o heartburn, PRN Tums given. BSCx1. Valium x1 given (see MAR). CHG bath and mouth care provided. Bed alarm in place. Call louis in reach. Safe environment
maintained.
[2025-05-21] VITALS (19 sets, daily range): BP systolic 132–217; BP diastolic 53–110; PULSE 96; BMI 31.9
--- NOTE | 2025-05-21 00:45 | PTCARENOTE ---
[employer] notified, pt restless in bed, pulling off cardiac rehab nurse and BP cuff, pt re-oriented and emotional support provided. B/l mitts placed on pt, Ativan ordered, pt refused to take medication.
[2025-05-21] MEDS: SYNTHROID 100 MCG PO (05:07)
--- NOTE | 2025-05-21 07:34 | PTCARENOTE ---
pt rec'd in handoff from night RN, climbing oob setting off alarm. assisted to bsc for urine and BM. Attempted to perform NIHSS, pt refused to answer questions stating, 'I don't have to tell you nothing. You're not my doctor.' Education provided. Pt
remains defiant. Safe environment maintained with bed and chair alarm armed.
[2025-05-21] MEDS: JANUVIA 100 MG PO (08:12)
[2025-05-21] MEDS: COZAAR 25 MG PO ×2 (08:12→11:03)
[2025-05-21] MEDS: VITAMIN B-12 PO (08:13)
[2025-05-21 08:21] LABS: Glucose - Point of Care 154 mg/dl (70-99)
[2025-05-21] MEDS: NOVOLOG FLEXPEN-LOW RESISTANCE 1 UNITS SC (09:33)
--- NOTE | 2025-05-21 09:59 | W.PN.NEURO.1 ---
Today's Communication / Plan
-
initiation of aspirin and clopidogrel for 21 days, then aspirin alone
Initiate atorvastatin 80 mg daily
Provide medical education materials
Began vitamin B12 replacement due to low levels
Rehabilitation evaluation and treatment
Neuro Assessment/Plan
Assessment
Abrupt onset of change in mental status and visual disturbance. 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
MRI imaging as seen above demonstrates acute ischemic strokes in bilateral occipital lobes which may be the result of PRES
Patient was not a candidate for either tenecteplase or mechanical thrombectomy due to timeframe out of window and absence of clot for retrieval
Plan
initiation of aspirin and clopidogrel for 21 days, then aspirin alone
Initiate atorvastatin 80 mg daily
Provide medical education materials
Began vitamin B12 replacement due to low levels
Rehabilitation evaluation and treatment
Will follow peripherally and as outpatient
Subjective/Objective
Subjective Data
Date of Service: May 21, 2025
Objective Data
Vital Signs
Temp Pulse Resp BP Pulse Ox
36.6 C 82 19 178/90 95
05/20/25 22:08 05/21/25 08:00 05/21/25 08:00 05/21/25 08:00 05/20/25 22:24
Lab Results
05/20/25 03:41
05/20/25 06:00
PT 13.8 Sec (11.4-14.6) 05/20/25 03:41
INR 1.03 05/20/25 03:41
APTT 29.1 Sec (23.4-35.0) 05/20/25 03:41
Sodium Cancelled 05/20/25 06:00
Potassium Cancelled 05/20/25 06:00
BUN Cancelled 05/20/25 06:00
Glucose Cancelled 05/20/25 06:00
Calcium Cancelled 05/20/25 06:00
LDL Cholesterol, Calc 152 mg/dl 05/20/25 03:41
Vitamin B12 183 pg/ml (239-931) L 05/20/25 03:41
Patient Allergies
No Known Allergies Allergy (Verified 08/22/24 14:15)
Data Reviewed
-
MRI Head: Report Reviewed and Image Reviewed
Labs: Report Reviewed
Lipid Profile: Report Reviewed
Reviewed with: Physician and Family
Old Records: Summarized
Past History
Past History
ED Past Medical History: NIDDM
ED Past Surgical History: Orthopedic
Medications
-
Medications:
Generic Name Dose Route Start Last Admin
Trade Name Freq PRN Reason Stop Dose Admin
Acetaminophen 650 mg 05/20/25 01:38 05/20/25 18:23
Acetaminophen 325 Mg Tablet PO 06/17/25 01:37 650 mg
Q4HPRN PRN Administration
mild pain/STREET/temp> 100.4F
Aspirin 81 mg 05/22/25 08:00
Aspirin 81 Mg (Enteric Coated) Tablet PO 06/19/25 07:59
DAILY JOSE
Aspirin 81 mg 05/21/25 10:10
Aspirin 81 Mg (Enteric Coated) Tablet PO 05/21/25 10:11
NOW STA
Atorvastatin Calcium 80 mg 05/21/25 18:00
Atorvastatin (Lipitor) 80 Mg Tablet PO 06/18/25 17:59
QPM JOSE
Bisacodyl 10 mg 05/20/25 01:38
Bisacodyl 10 Mg Rectal Suppository RECTAL 06/17/25 01:37
[id number] PRN
constipation
Calcium Carbonate 400 mg 05/20/25 04:30 05/20/25 21:51
Calcium Antacid 200 Mg (Calcium Carbonate 500 Mg) Chew Tablet PO 06/17/25 04:29 400 mg
Q4HPRN PRN Administration
indigestion
Clopidogrel Bisulfate 75 mg 05/22/25 08:00
Clopidogrel 75 Mg Tablet PO 06/11/25 08:01
DAILY JOSE
Clopidogrel Bisulfate 75 mg 05/21/25 10:10
Clopidogrel 75 Mg Tablet PO 05/21/25 10:11
NOW STA
Cyanocobalamin 1,000 mcg 05/20/25 13:15 05/21/25 08:13
Cyanocobalamin (Vitamin B-12) 500 Mcg Tablet PO 06/17/25 13:14 Not Given
DAILY JOSE
Dextrose 12.5 grams 05/20/25 01:38
Dextrose 50% (0.5 Grams/Ml) 50 Ml Syringe IV 06/17/25 01:37
[id number] PRN
hypoglycemia
Protocol
Enoxaparin Sodium 40 mg 05/20/25 18:00 05/20/25 18:23
Enoxaparin Sodium 40 Mg/0.4 Ml Syringe SC 06/17/25 17:59 40 mg
QPM JOSE Administration
Glucagon 1 mg 05/20/25 01:38
Glucagon 1 Mg Vial IM 06/17/25 01:37
PRN PRN
hypoglycemia
Protocol
Hydralazine HCl 10 mg 05/20/25 19:14 05/20/25 20:50
Hydralazine 20 Mg/Ml Vial IV 06/17/25 19:13 10 mg
Q4HPRN PRN Administration
SBP>180
Insulin Aspart 0 units 05/20/25 07:30 05/21/25 09:33
Insulin Aspart Low Resistance 300 Units/3 Ml Pen.Injctr SC 06/17/25 07:29 1 units
AC JOSE Administration
Protocol
Levothyroxine Sodium 100 mcg 05/20/25 06:00 05/21/25 05:07
Levothyroxine 100 Mcg Tablet PO 06/17/25 05:59 100 mcg
DAILY @ 0600 JOSE Administration
Losartan Potassium 50 mg 05/21/25 10:31
Losartan 25 Mg Tablet PO 06/17/25 10:59
DAILY JOSE
Losartan Potassium 25 mg 05/21/25 10:31
Losartan 25 Mg Tablet PO 05/21/25 10:32
NOW STA
Polyethylene Glycol 17 grams 05/20/25 01:38
Polyethylene Glycol Powder 17 Grams Packet PO 06/17/25 01:37
DAILYPRN PRN
constipation
Senna/Docusate Sodium 1 tablet 05/20/25 01:38
Docusate W/Senna (Alejandra-Colace) Tablet PO 06/17/25 01:37
BIDPRN PRN
constipation
Sitagliptin Phosphate 100 mg 05/20/25 08:00 05/21/25 08:12
Sitagliptin (Januvia) 100 Mg Tablet PO 06/17/25 07:59 100 mg
DAILY JOSE Administration
Sodium Chloride 0 flush 05/20/25 02:00 05/20/25 16:39
Sodium Chloride 0.9% (Flush) Syringe IV 06/17/25 01:59 1 flush
PER PROTOCOL JOSE Administration
[2025-05-21] MEDS: PLAVIX 75 MG PO (11:03)
[2025-05-21] MEDS: ASPIR LOW (ENTERIC COATED) 81 MG PO (11:03)
[2025-05-21 11:38] LABS: Glucose - Point of Care 110 mg/dl (70-99)
[2025-05-21] MEDS: NOVOLOG FLEXPEN-LOW RESISTANCE SC ×2 (11:41→16:31)
[2025-05-21] MEDS: APRESOLINE 10 MG IV (12:01)
--- NOTE | 2025-05-21 12:31 | PTCARENOTE ---
Pt had transient episode of aphasia while speech therapist was working with her, was perseverating briefly on 'hair salon' and was saying gibberish, BP checked and was 217/91, PRN Hydralazine given, NIHSS attempted again, see flowsheet.
Tres and Jaleesa notified, orders rec'd ....sons at bedside. Emotional support to patient and family ongoing.
[2025-05-21] MEDS: PROCARDIA XL (EXTENDED RELEASE) 30 MG PO (12:46)
[2025-05-21] MEDS: TUMS CHEWABLE TABLET 400 MG PO (13:02)
--- NOTE | 2025-05-21 14:53 | W.PN.HOSP.TC ---
Today's Communication/Plan
-
Increase losartan
Add nifedipine
Monitor BPs closely
DAPT, statin
PT/OT
Assessment / Plan
Assessment / Plan
General: Anxious, slightly paranoid
HEENT: PERRLA
Respiratory: Clear; No Wheezes
Cardiac: S1/S2 and Regular Rhythm
GI: Soft, Non Tender and Non Distended
Musculoskeletal: No Edema
Skin: Warm and Dry; No Rash
Neuro: AO x 3
Psych: Calm
Ms. Sierra Hutchins is a 84 yo woman with hx DM II, hypothyroidism presents to the ER with headache and abnormal peripheral vision in both eyes.
Triage VS: T 98.5, P 73, RR 16, BP 210/100, SpO2 95%
LABS: WBC 9.8, Hg 15.6, PLT 226, Na 140, K+ 4.4, CO2 25, BUN 18, Cr 0.8, liver enzymes WNL, CRP < 5, ESR 17, Trop < 0.012
CT Head
IMPRESSION:
Subtle decreased density within the posterior occipital lobes bilaterally, fairly symmetric between right and left. 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
As warranted, further evaluation with MRI of the brain could be considered.
Hypertensive Emergency
Posterior Reversible Encephalopathy Syndrome
Acute ischemic strokes in bilateral occipital lobes
-MRI Brain: Bilateral symmetric occipital lobe ischemic infarct. 8 mm left cerebellum and 3 mm right cerebellum infarct
-Can stop Nicardipine from ED
-BPs improved
-DG to tele
-Increased Losartan
-Started Nifedepine
-Hydralazine IV PRN
-If continued hypertension, renal consult
-Started on DAPT, Statin
#HTN
#HLD
-Increase Losartan
-Start on Nifedepine
-Statin
#Acute Metabolic encephalopathy
� I suspect secondary to acute CVA as well as delirium
� Monitor with PT/OT/ST
#Acute CVAs
-As per neurology - BP mangement is reyes
-DAPT, Statin
-F/u neurology oupt
-aspirin and clopidogrel for 21 days, then aspirin alone
-PT/OT
B12 deficiency
-supplement
Hypothyroidism
-FARM SERVICE CONSULTANT Synthroid 100mcg daily
-F/u TFTs outpt
DM II
-FARM SERVICE CONSULTANT Januvia
-Diabetic Diet
-ISS low
DVT PPx SCD
FULL CODE
Total time spent on today's encounter was 60 minutes which included time spent in counseling the patient/family regarding diagnosis and treatment plan as listed above, goals of care, and symptom management. Case was discussed with nursing staff,
specialists, and care coordinators/case management. All labs and imaging personally reviewed by me. Remainder the time spent in detailed review of previous records, lab data, imaging, and other medical provider documentation.
Anticipated Discharge: 24 - 48 hours
Subjective/Interval History
-
Date of Service: May 21, 2025
MRI imaging as seen above demonstrates acute ischemic strokes in bilateral occipital lobes which may be the result of PRES
Objective Data
-
Vital Signs:
Vital Signs
Temp Pulse Resp BP Pulse Ox
97.8 F 88 19 156/70 95
05/20/25 22:08 05/21/25 13:37 05/21/25 08:00 05/21/25 13:37 05/21/25 08:00
I&O
05/20/25 05/21/25 05/22/25
06:59 06:59 06:59
Intake Total 322.5 / 335.0 965.0 / 965.0
Output Total 1275 / 1275
Balance 322.5 / 335.0 -310.0 / -310.0
Review of Systems
-
History Source: Patient
Constitutional: Reports Sleep Disturbance
EENT: Reports No Symptoms Reported
Respiratory: Reports Cough
Cardiac: Reports No Symptoms
Abdomen/GI: Reports No Symptoms
Genitourinary: Reports No Symptoms
Data Reviewed
-
CT Scan: Report Reviewed by me
MRI: Report Reviewed by me
Labs: Labs Reviewed by me and Discussed with Physician
Old Records: Reviewed
--- NOTE | 2025-05-21 15:41 | CM ---
Monitoring B/P closely, medication adjustments. Discharge POC: Therapy rec for acute rehab. Son provided with [employer] list on 05/20/25. He is discussing preferences with patient and brother. CM encouraged timely response in order to place
referrals.
[2025-05-21 15:54] LABS: Hematocrit 49.0 % (37.0-47.0); Hemoglobin 17.1 g/dL (12.0-16.0); Mean Corp Hgb Conc. 34.9 g/dL (33.0-37.0); Mean Corpuscular Volume 83.3 fL (81.0-99.0); Platelet Count 240 10^3/uL (130-400); Red Cell Dist. Width 12.8 % (11.5-14.5)
--- NOTE | 2025-05-21 16:22 | PTCARENOTE ---
Labs drawn and sent as ordered, BPs have improved s/p med administration (Nifedipine added) pt resting quietly with son at bedside. Safe environment ongoing.
[2025-05-21 16:26] LABS: Blood Urea Nitrogen 15 mg/dl (7-17); Calcium 10.6 mg/dl (8.4-10.2); Carbon Dioxide 27 mmol/L (22-30); Chloride 103 mmol/L (98-107); Estimated Creatinine Clearance 46 ml/min; Glucose 135 mg/dl (70-99); Potassium 4.2 mmol/L (3.5-5.1); Sodium 137 mmol/L (135-145); eGFR > 60.00
[2025-05-21] MEDS: LIPITOR 80 MG PO (16:53)
[2025-05-21] MEDS: LOVENOX 40 MG SC (16:53)
--- NOTE | 2025-05-21 20:45 | PTCARENOTE ---
Received pt resting in bed, AAOx3, ZHANG 5/5 strength. NIH handoff with chantel ZAMORA. NIH = 3. Mild aphasia, unable to identify any objects and unable to read sentences when asked to. Has difficulty with vision and finding objects in front of her such
as her toothbrush. Able to follow directions most of the time. Can get anxious at times. Neuro checks Q4. NSR with BBB on tele. HR 70-90s. BP 153/83. On RA, lungs CTA. Spo2 95%. + bowel sounds. 1800cal diab diet. Ambulated to bathroom with standby
assist. Voided yellow urine. L wrist #20 patent and capped. Call louis in reach.
Son, Landon, staying overnight at bedside.
[2025-05-21 23:19] LABS: Glucose - Point of Care 113 mg/dl (70-99)
[2025-05-22] VITALS (8 sets, daily range): BP systolic 112–171; BP diastolic 53–88; PULSE 80; BMI 31.9
[2025-05-22 04:57] LABS: Hematocrit 47.1 % (37.0-47.0); Hemoglobin 16.5 g/dL (12.0-16.0); Mean Corp Hgb Conc. 35.0 g/dL (33.0-37.0); Mean Corpuscular Volume 83.7 fL (81.0-99.0); Platelet Count 254 10^3/uL (130-400); Red Cell Dist. Width 13.0 % (11.5-14.5)
[2025-05-22 05:19] LABS: Blood Urea Nitrogen 18 mg/dl (7-17); Calcium 10.3 mg/dl (8.4-10.2); Carbon Dioxide 25 mmol/L (22-30); Chloride 106 mmol/L (98-107); Estimated Creatinine Clearance 41 ml/min; Glucose 132 mg/dl (70-99); Potassium 4.2 mmol/L (3.5-5.1); Sodium 138 mmol/L (135-145); eGFR > 60.00
--- NOTE | 2025-05-22 05:46 | PTCARENOTE ---
No major changes overnight. Pt. slept on and off. When she woke up to use bathroom a few times, expressed anxiety about dying and worrying about her vital signs stating 'today is the day I .' Support given. Pt. sleeping at this time.
[2025-05-22] MEDS: SYNTHROID 100 MCG PO (06:20)
[2025-05-22] MEDS: PROCARDIA XL (EXTENDED RELEASE) 30 MG PO ×2 (07:59→20:54)
[2025-05-22] MEDS: PLAVIX 75 MG PO (07:59)
[2025-05-22] MEDS: COZAAR 50 MG PO (07:59)
[2025-05-22] MEDS: JANUVIA 100 MG PO (08:00)
[2025-05-22] MEDS: VITAMIN B-12 1000 MCG PO (08:00)
[2025-05-22] MEDS: ASPIR LOW (ENTERIC COATED) 81 MG PO (08:00)
[2025-05-22 08:08] LABS: Glucose - Point of Care 140 mg/dl (70-99)
[2025-05-22] MEDS: NOVOLOG FLEXPEN-LOW RESISTANCE SC ×3 (08:23→17:11)
[2025-05-22 12:02] LABS: Glucose - Point of Care 126 mg/dl (70-99)
--- NOTE | 2025-05-22 12:30 | PTCARENOTE ---
Report called to RN on 3W, pt to move to [id number]. Pt and family updated.
--- NOTE | 2025-05-22 13:36 | W.PN.HOSP.TC ---
Today's Communication/Plan
-
BP control
PT/OT
Disposition efforts
Assessment / Plan
Assessment / Plan
General: Anxious, slightly paranoid
HEENT: PERRLA
Respiratory: Clear; No Wheezes
Cardiac: S1/S2 and Regular Rhythm
GI: Soft, Non Tender and Non Distended
Musculoskeletal: No Edema
Skin: Warm and Dry; No Rash
Neuro: AO x 3
Psych: Calm
Ms. Sierra Hutchins is a 84 yo woman with hx DM II, hypothyroidism presents to the ER with headache and abnormal peripheral vision in both eyes.
Triage VS: T 98.5, P 73, RR 16, BP 210/100, SpO2 95%
LABS: WBC 9.8, Hg 15.6, PLT 226, Na 140, K+ 4.4, CO2 25, BUN 18, Cr 0.8, liver enzymes WNL, CRP < 5, ESR 17, Trop < 0.012
CT Head
IMPRESSION:
Subtle decreased density within the posterior occipital lobes bilaterally, fairly symmetric between right and left. 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
As warranted, further evaluation with MRI of the brain could be considered.
Hypertensive Emergency
Posterior Reversible Encephalopathy Syndrome
Acute ischemic strokes in bilateral occipital lobes
Vision changes
-MRI Brain: Bilateral symmetric occipital lobe ischemic infarct. 8 mm left cerebellum and 3 mm right cerebellum infarct. PRES
-Intermittent eye misalignment - most likely 2/2 to brain orientation for vision is not there. This is part of the injury and - meet with Dr. Leila Souza in [place] for ocular retraining although may not be tremendously helpful based on the
severity of her bioccipital lesions.
-Can stop Nicardipine from ED
-BPs improved
-DG to tele
-Increased Losartan - titrate as needed
-Started Nifedepine - titrate as needed
-Hydralazine IV PRN
-If continued hypertension, renal consult
-Started on DAPT, Statin
#HTN
#HLD
-Increase Losartan
-Start on Nifedepine
-Statin
-no emergent cardiology needs
-can f/u outpt
#Acute Metabolic encephalopathy
� I suspect secondary to acute CVA as well as delirium
� Monitor with PT/OT/ST
#Acute CVAs
-As per neurology - BP management is reyes
-DAPT, Statin
-F/u neurology oupt
-aspirin and clopidogrel for 21 days, then aspirin alone
-PT/OT
B12 deficiency
-supplement
Hypothyroidism
-DOPE WORKER Synthroid 100mcg daily
-F/u TFTs outpt
DM II
-DOPE WORKER Januvia
-Diabetic Diet
-ISS low
DVT PPx SCD
FULL CODE
Anticipated Discharge: Within 24 hours
Subjective/Interval History
-
Date of Service: May 22, 2025
vision changes ensue but fluctuating and somewhat improving; much more calmer today
Objective Data
-
Labs:
Laboratory Results
05/22/25
04:21
WBC 12.1 H
Hgb 16.5 H
Hct 47.1 H
Plt Count 254
Sodium 138
Potassium 4.2
Chloride 106
Carbon Dioxide 25
BUN 18 H
Creatinine 0.9
Glucose 132 H
Calcium 10.3 H
Vital Signs:
Vital Signs
Temp Pulse Resp BP Pulse Ox
97.5 F 76 18 171/76 96
05/22/25 12:51 05/22/25 12:51 05/22/25 12:51 05/22/25 12:51 05/22/25 13:02
I&O
05/21/25 05/22/25 05/23/25
06:59 06:59 06:59
Intake Total 965.0 / 965.0 240 / 240
Output Total 1275 / 1275
Balance -310.0 / -310.0 240 / 240
Review of Systems
-
History Source: Patient
Constitutional: Reports Sleep Disturbance
EENT: Reports No Symptoms Reported
Respiratory: Reports Cough
Cardiac: Reports No Symptoms
Abdomen/GI: Reports No Symptoms
Genitourinary: Reports No Symptoms
Data Reviewed
-
CT Scan: Report Reviewed by me
MRI: Report Reviewed by me
Labs: Labs Reviewed by me and Discussed with Physician
Old Records: Reviewed
--- NOTE | 2025-05-22 14:30 | CM ---
CM reviewed chart, spoke with patients son, Landon, to discuss family choices for acute rehab.
Per son, he will be talking to his brother this evening, will identify facilities tomorrow morning.
CM discussed patient nearing discharge, need to place referrals. Son agreeable to referral to [facility]- placed in [facility]. CM discussed additional Acute Rehabs including [facility], [facility], [facility].
TT to Hospitalist for PMR consult.
Patient will require auth if accepted to Acute Rehab.
Son Landon requesting call from [facility] liaison if they are able to accept.
Plan; Referral to [facility], will need insurance auth if able to accept, PMR consulted
[2025-05-22 17:05] LABS: Glucose - Point of Care 136 mg/dl (70-99)
[2025-05-22] MEDS: LOVENOX 40 MG SC (17:18)
[2025-05-22] MEDS: LIPITOR 80 MG PO (17:20)
[2025-05-22 18:16] LABS: Aldosterone/Renin Activ Ratio 22.7 ratio (<=25.0); Renin Activity Results 0.3 ng/mL/hr
[2025-05-22 20:19] LABS: Glucose - Point of Care 123 mg/dl (70-99)
[2025-05-23] VITALS (7 sets, daily range): BP systolic 118–170; BP diastolic 48–95; PULSE 71
[2025-05-23] MEDS: SYNTHROID 100 MCG PO (05:43)
[2025-05-23 07:26] LABS: Glucose - Point of Care 124 mg/dl (70-99)
[2025-05-23] MEDS: NOVOLOG FLEXPEN-LOW RESISTANCE SC ×3 (07:48→18:10)
[2025-05-23] MEDS: VITAMIN B-12 1000 MCG PO (07:48)
[2025-05-23] MEDS: JANUVIA 100 MG PO (07:48)
[2025-05-23] MEDS: ASPIR LOW (ENTERIC COATED) 81 MG PO (07:48)
[2025-05-23] MEDS: COZAAR 50 MG PO (07:48)
[2025-05-23] MEDS: PLAVIX 75 MG PO (07:48)
[2025-05-23] MEDS: PROCARDIA XL (EXTENDED RELEASE) 30 MG PO ×2 (07:48→20:10)
[2025-05-23 09:38] LABS: Hematocrit 47.5 % (37.0-47.0); Hemoglobin 17.0 g/dL (12.0-16.0); Mean Corp Hgb Conc. 35.8 g/dL (33.0-37.0); Mean Corpuscular Volume 83.3 fL (81.0-99.0); Platelet Count 233 10^3/uL (130-400); Red Cell Dist. Width 12.9 % (11.5-14.5)
--- NOTE | 2025-05-23 09:51 | CM ---
patient seen at bedside with son Landon & Chuck
PT/OT rec Acute rehab
Referral in for [facility]-son's prefer [facility]
await physiatry eval
Discussed with son once bed is secured will need to obtain ins. auth
Left message with Lisa at [facility]
PLAN: Acute Rehab, await physiatry eval, will need ins auth
[2025-05-23 12:31] LABS: Glucose - Point of Care 148 mg/dl (70-99)
--- NOTE | 2025-05-23 13:14 | W.PN.HOSP.TC ---
Today's Communication/Plan
-
Awaiting Physiatry Eval
DAPT, Statin
BP control
Assessment / Plan
Assessment / Plan
General: Anxious, slightly paranoid
HEENT: PERRLA
Respiratory: Clear; No Wheezes
Cardiac: S1/S2 and Regular Rhythm
GI: Soft, Non Tender and Non Distended
Musculoskeletal: No Edema
Skin: Warm and Dry; No Rash
Neuro: AO x 3
Psych: Calm
Ms. Sierra Hutchins is a 84 yo woman with hx DM II, hypothyroidism presents to the ER with headache and abnormal peripheral vision in both eyes.
Triage VS: T 98.5, P 73, RR 16, BP 210/100, SpO2 95%
LABS: WBC 9.8, Hg 15.6, PLT 226, Na 140, K+ 4.4, CO2 25, BUN 18, Cr 0.8, liver enzymes WNL, CRP < 5, ESR 17, Trop < 0.012
CT Head
IMPRESSION:
Subtle decreased density within the posterior occipital lobes bilaterally, fairly symmetric between right and left. 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
As warranted, further evaluation with MRI of the brain could be considered.
Hypertensive Emergency
Posterior Reversible Encephalopathy Syndrome
Acute ischemic strokes in bilateral occipital lobes
Vision changes
-MRI Brain: Bilateral symmetric occipital lobe ischemic infarct. 8 mm left cerebellum and 3 mm right cerebellum infarct. PRES
-Intermittent eye misalignment - most likely 2/2 to brain orientation for vision is not there. This is part of the injury and - meet with Dr. Leila Souza in [place] for ocular retraining although may not be tremendously helpful based on the
severity of her bioccipital lesions.
-Can stop Nicardipine from ED
-BPs improved
-Increased Losartan - titrate as needed
-Started Nifedepine - titrate as needed
-Hydralazine IV PRN
-If continued hypertension, renal consult
-Started on DAPT, Statin
#HTN
#HLD
-Increase Losartan
-Start on Nifedepine
-Statin
-no emergent cardiology needs
-can f/u outpt
#Acute Metabolic encephalopathy
� I suspect secondary to acute CVA as well as delirium
� Monitor with PT/OT/ST
#Acute CVAs
-As per neurology - BP management is reyes
-DAPT, Statin
-F/u neurology oupt
-aspirin and clopidogrel for 21 days, then aspirin alone
-PT/OT
B12 deficiency
-supplement
Hypothyroidism
-LOW EMISSION AUTOMOBILE DESIGNER Synthroid 100mcg daily
-F/u TFTs outpt
DM II
-LOW EMISSION AUTOMOBILE DESIGNER Januvia
-Diabetic Diet
-ISS low
DVT PPx Lovenox
FULL CODE
Anticipated Discharge: > 48 hours
Subjective/Interval History
-
Date of Service: May 23, 2025
no acute events overnight
Objective Data
-
Labs:
Laboratory Results
05/23/25 05/23/25
08:55 12:33
WBC 9.9
Hgb 17.0 H
Hct 47.5 H
Plt Count 233
Sodium Cancelled Pending
Potassium Cancelled Pending
Chloride Cancelled Pending
Carbon Dioxide Cancelled Pending
BUN Cancelled Pending
Creatinine Cancelled Pending
Glucose Cancelled Pending
Calcium Cancelled Pending
Vital Signs:
Vital Signs
Temp Pulse Resp BP Pulse Ox
97.8 F 67 16 146/63 96
05/23/25 11:22 05/23/25 11:22 05/23/25 11:22 05/23/25 11:22 05/23/25 11:22
I&O
10/10/25 10/11/25 10/12/25
06:59 06:59 06:59
Intake Total 240 / 240 480 / 480
Balance 240 / 240 480 / 480
Physical Exam
-
General: Well Developed, Well Nourished, Comfortable and Conversant
HEENT: Normocephalic and Atraumatic
Respiratory: Rhonchi
Cardiac: Regular Rhythm and S1/S2
GI: Soft, Nontender and Nondistended
Skin: Warm and Dry
Neuro: AO x 3
Psych: Calm
[2025-05-23 13:25] LABS: Blood Urea Nitrogen 34 mg/dl (7-17); Calcium 10.5 mg/dl (8.4-10.2); Carbon Dioxide 23 mmol/L (22-30); Chloride 104 mmol/L (98-107); Estimated Creatinine Clearance 25 ml/min; Glucose 138 mg/dl (70-99); Potassium 3.9 mmol/L (3.5-5.1); Sodium 137 mmol/L (135-145); eGFR 33.94
[2025-05-23 16:55] LABS: Glucose - Point of Care 168 mg/dl (70-99)
[2025-05-23] MEDS: LOVENOX 40 MG SC (17:38)
[2025-05-23] MEDS: LIPITOR 80 MG PO (17:38)
[2025-05-23 18:09] LABS: Glucose - Point of Care 121 mg/dl (70-99)
[2025-05-23 21:51] LABS: Glucose - Point of Care 134 mg/dl (70-99)
[2025-05-24] VITALS (8 sets, daily range): BP systolic 136–178; BP diastolic 54–90; PULSE 67; O2SAT 98
[2025-05-24] MEDS: SYNTHROID 100 MCG PO (05:54)
[2025-05-24 07:50] LABS: Hematocrit 45.6 % (37.0-47.0); Hemoglobin 15.8 g/dL (12.0-16.0); Mean Corp Hgb Conc. 34.6 g/dL (33.0-37.0); Mean Corpuscular Volume 86.4 fL (81.0-99.0); Platelet Count 218 10^3/uL (130-400); Red Cell Dist. Width 12.8 % (11.5-14.5)
[2025-05-24] MEDS: JANUVIA 100 MG PO (07:57)
[2025-05-24] MEDS: ASPIR LOW (ENTERIC COATED) 81 MG PO (07:57)
[2025-05-24] MEDS: PLAVIX 75 MG PO (07:57)
[2025-05-24] MEDS: PROCARDIA XL (EXTENDED RELEASE) 30 MG PO (07:57)
[2025-05-24] MEDS: COZAAR 50 MG PO (07:57)
[2025-05-24] MEDS: VITAMIN B-12 1000 MCG PO (07:58)
[2025-05-24 07:59] LABS: Glucose - Point of Care 119 mg/dl (70-99)
[2025-05-24] MEDS: NOVOLOG FLEXPEN-LOW RESISTANCE SC ×3 (07:59→16:10)
[2025-05-24 08:16] LABS: Blood Urea Nitrogen 34 mg/dl (7-17); Calcium 9.9 mg/dl (8.4-10.2); Carbon Dioxide 27 mmol/L (22-30); Chloride 106 mmol/L (98-107); Estimated Creatinine Clearance 31 ml/min; Glucose 121 mg/dl (70-99); Potassium 4.3 mmol/L (3.5-5.1); Sodium 139 mmol/L (135-145); eGFR 44.36
[2025-05-24] MEDS: LR 1000 IV (09:11)
--- NOTE | 2025-05-24 09:39 | CM ---
Patient seen at bedside with son
await Physiatry eval
PT/OT rec acute rehab-prefer [facility]
PLAN: Acute Rehab, pending physiatry eval, will need ins auth
[2025-05-24 11:50] LABS: Glucose - Point of Care 114 mg/dl (70-99)
--- NOTE | 2025-05-24 12:54 | W.PN.HOSP.TC ---
Today's Communication/Plan
-
Awaiting Physiatry Eval
DAPT, Statin
BP control; increased Nifedipine to 60mg qhs
Assessment / Plan
Assessment / Plan
General: Anxious, slightly paranoid
HEENT: PERRLA
Respiratory: Clear; No Wheezes
Cardiac: S1/S2 and Regular Rhythm
GI: Soft, Non Tender and Non Distended
Musculoskeletal: No Edema
Skin: Warm and Dry; No Rash
Neuro: AO x 3
Psych: Calm
Ms. Sierra Hutchins is a 84 yo woman with hx DM II, hypothyroidism presents to the ER with headache and abnormal peripheral vision in both eyes.
Triage VS: T 98.5, P 73, RR 16, BP 210/100, SpO2 95%
LABS: WBC 9.8, Hg 15.6, PLT 226, Na 140, K+ 4.4, CO2 25, BUN 18, Cr 0.8, liver enzymes WNL, CRP < 5, ESR 17, Trop < 0.012
CT Head
IMPRESSION:
Subtle decreased density within the posterior occipital lobes bilaterally, fairly symmetric between right and left. 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
As warranted, further evaluation with MRI of the brain could be considered.
Hypertensive Emergency
Posterior Reversible Encephalopathy Syndrome
Acute ischemic strokes in bilateral occipital lobes
Vision changes
-MRI Brain: Bilateral symmetric occipital lobe ischemic infarct. 8 mm left cerebellum and 3 mm right cerebellum infarct. PRES
-Intermittent eye misalignment - most likely 2/2 to brain orientation for vision is not there. This is part of the injury and - meet with Dr. Leila Souza in [place] for ocular retraining although may not be tremendously helpful based on the
severity of her bioccipital lesions.
-Can stop Nicardipine from ED
-BPs improved
-Increased Losartan 50mg daily
-Started Nifedepine - titrate as needed. 30mg Daily and Increased 60mg qPM.
-Hydralazine IV PRN
-If continued hypertension, renal consult
-Started on DAPT, Statin
#HTN
#HLD
-Increase Losartan
-Start on Nifedepine
-Statin
-no emergent cardiology needs, f/u with [facility] outpatient.
-can f/u outpt
ISABEL
-likely pre-renal
-improving
-LR bolus today
-F/u FeNa
#Acute Metabolic encephalopathy
� I suspect secondary to acute CVA as well as delirium
� Monitor with PT/OT/ST
-improving
#Acute CVAs
-As per neurology - BP management is reyes
-DAPT, Statin
-F/u neurology oupt
-aspirin and clopidogrel for 21 days, then aspirin alone
-PT/OT
B12 deficiency
-supplement
Hypothyroidism
-SENIOR SOFTWARE PROJECT MANAGER Synthroid 100mcg daily
-F/u TFTs outpt
DM II
-SENIOR SOFTWARE PROJECT MANAGER Januvia
-Diabetic Diet
-ISS low
DVT PPx Lovenox
FULL CODE
Anticipated Discharge: 24 - 48 hours
Subjective/Interval History
-
Date of Service: May 24, 2025
no acute events
Objective Data
-
Labs:
Laboratory Results
05/24/25
07:22
WBC 7.6
Hgb 15.8
Hct 45.6
Plt Count 218
Sodium 139
Potassium 4.3
Chloride 106
Carbon Dioxide 27
BUN 34 H
Creatinine 1.2 H
Glucose 121 H
Calcium 9.9
Vital Signs:
Vital Signs
Temp Pulse Resp BP Pulse Ox
97.6 F 76 21 153/70 95
05/24/25 12:25 05/24/25 12:25 05/24/25 12:25 05/24/25 12:25 05/24/25 12:25
I&O
05/23/25 05/24/25 05/25/25
06:59 06:59 06:59
Intake Total 480 / 480 660 / 660 1480 / 1480
Balance 480 / 480 660 / 660 1480 / 1480
Review of Systems
-
History Source: Patient
Constitutional: Reports Sleep Disturbance
EENT: Reports No Symptoms Reported
Respiratory: Reports Cough
Cardiac: Reports No Symptoms
Abdomen/GI: Reports No Symptoms
Genitourinary: Reports No Symptoms
Physical Exam
-
General: Well Developed, Well Nourished, Comfortable and Conversant
HEENT: Normocephalic and Atraumatic
Respiratory: Rhonchi
Cardiac: Regular Rhythm and S1/S2
GI: Soft, Nontender and Nondistended
Skin: Warm and Dry
Neuro: AO x 3
Psych: Calm
Data Reviewed
-
CT Scan: Report Reviewed by me
MRI: Report Reviewed by me
Labs: Labs Reviewed by me and Discussed with Physician
Old Records: Reviewed
[2025-05-24 15:15] LABS: Glucose - Point of Care 142 mg/dl (70-99)
[2025-05-24] MEDS: LOVENOX 40 MG SC (17:20)
[2025-05-24] MEDS: LIPITOR 80 MG PO (17:20)
[2025-05-24] MEDS: PROCARDIA XL (EXTENDED RELEASE) 60 MG PO (19:41)
[2025-05-24 21:49] LABS: Glucose - Point of Care 103 mg/dl (70-99)
--- NOTE | 2025-05-24 21:52 | PTCARENOTE ---
patient reported to this RN of hallucinations. when asked if these hallucinations are new pt stated that they have been going on since Sunday but are worse today. patient did not report hallucinations to staff prior to this encounter with this RN.
patient AOOx3. bed alarm in place. POC on going.
[2025-05-25] VITALS (7 sets, daily range): BP systolic 138–173; BP diastolic 64–77; PULSE 78
[2025-05-25] MEDS: SYNTHROID 100 MCG PO (05:30)
[2025-05-25 06:55] LABS: Hematocrit 45.2 % (37.0-47.0); Hemoglobin 14.9 g/dL (12.0-16.0); Mean Corp Hgb Conc. 33.0 g/dL (33.0-37.0); Mean Corpuscular Volume 86.9 fL (81.0-99.0); Platelet Count 229 10^3/uL (130-400); Red Cell Dist. Width 12.8 % (11.5-14.5)
[2025-05-25 07:21] LABS: Blood Urea Nitrogen 27 mg/dl (7-17); Calcium 9.6 mg/dl (8.4-10.2); Carbon Dioxide 29 mmol/L (22-30); Chloride 106 mmol/L (98-107); Estimated Creatinine Clearance 37 ml/min; Glucose 122 mg/dl (70-99); Potassium 5.2 mmol/L (3.5-5.1); Sodium 140 mmol/L (135-145); eGFR 55.21
--- NOTE | 2025-05-25 07:37 | W.PN.HOSP.TC ---
Today's Communication/Plan
-
see plan
Assessment / Plan
Assessment / Plan
84 yo woman with hx DM II, hypothyroidism presents to the ER with headache and abnormal peripheral vision in both eyes.
Gen: NAD, AAOx3.
Eyes: EOMI, PERRLA, no scleral icterus.
Neck: supple.
CV: RRR, +S1/S2, no m/r/g.
Resp: CTAB, no rales, wheezes, or rhonchi.
Abd: +BS, soft, NT, ND
Skin: No rashes.
Neuro: CN 2-12 intact, non-focal.
Psych: Normal mood and affect.
CT Brain: Subtle decreased density within the posterior occipital lobes bilaterally, fairly symmetric between right and left. 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
As warranted, further evaluation with MRI of the brain could be considered.
MRI brain: Bilateral symmetric occipital lobe ischemic infarct. 8 mm left cerebellum and 3 mm right cerebellum infarct. Moderate chronic microvascular white matter ischemic change.
Acute ischemic strokes in B/L occipital lobes, visual changes, and PRES due to Hypertensive Emergency
-imaging above
-was on Nicardipine gtt in ER, now off
-Procardia and Losartan started, uptitrated
-Intermittent eye misalignment: most likely due to defect in brain orientation for vision due to acute CVAs. Recommend appointment with Dr. Leila Souza in [place] for ocular retraining (although may not be tremendously helpful based on the
severity of her bioccipital lesions).
-cont DAPT x 21 days, statin
-Hydralazine IV PRN (last dose 05/21)
Other problems:
Hyperkalemia: 15g kayexalate x 1
HLD: cont statin
ISABEL: resolved with IVFs
Acute Metabolic encephalopathy: due to PRES and acute CVAs
B12 deficiency
Hypothyroidism: cont Synthroid
DM2: cont Januvia/SSI
FULL/Lovenox
Anticipated Discharge: Today
Subjective/Interval History
-
Date of Service: May 25, 2025
Pt reports visual hallucinations. No other acute complaints.
Objective Data
-
Labs:
Laboratory Results
05/25/25
06:16
WBC 8.2
Hgb 14.9
Hct 45.2
Plt Count 229
Sodium 140
Potassium 5.2 H
Chloride 106
Carbon Dioxide 29
BUN 27 H
Creatinine 1.0
Glucose 122 H
Calcium 9.6
Vital Signs:
Vital Signs
Temp Pulse Resp BP Pulse Ox
97.3 F 87 18 158/64 97
05/25/25 03:48 05/25/25 03:48 05/25/25 03:48 05/25/25 03:48 05/25/25 03:48
I&O
05/24/25 05/25/25 05/26/25
06:59 06:59 06:59
Intake Total 660 / 660 2119
Balance 660 / 660 2119
[2025-05-25 07:59] LABS: Glucose - Point of Care 108 mg/dl (70-99)
[2025-05-25] MEDS: NOVOLOG FLEXPEN-LOW RESISTANCE SC ×3 (08:10→17:46)
[2025-05-25] MEDS: JANUVIA 100 MG PO (08:11)
[2025-05-25] MEDS: ASPIR LOW (ENTERIC COATED) 81 MG PO (08:11)
[2025-05-25] MEDS: PROCARDIA XL (EXTENDED RELEASE) 30 MG PO (08:11)
[2025-05-25] MEDS: PLAVIX 75 MG PO (08:12)
[2025-05-25] MEDS: COZAAR 50 MG PO (08:12)
[2025-05-25] MEDS: VITAMIN B-12 1000 MCG PO (08:12)
[2025-05-25] MEDS: KAYEXALATE SUSPENSION 15 GRAMS PO (08:35)
--- NOTE | 2025-05-25 11:33 | CM ---
Addendum entered by Laureen Gutierrez 05/25/25 14:32:
called Lisa Catesison from [facility] - discussed physiatry had not eval yet, she is on list
in [facility] she is accepted. Lisa will call CM tomorrow am regarding bed availability on Sunday
will need ins authorization
Original Note:
Patient seen at bedside with son Johnnie
await Physiatry eval
PT/OT rec acute rehab-prefer [facility]
referral in [facility]
PLAN: Acute Rehab, pending physiatry eval, will need ins auth
[2025-05-25 11:54] LABS: Glucose - Point of Care 120 mg/dl (70-99)
[2025-05-25 16:37] LABS: Glucose - Point of Care 150 mg/dl (70-99)
[2025-05-25 17:46] LABS: Glucose - Point of Care 123 mg/dl (70-99)
[2025-05-25] MEDS: LOVENOX 40 MG SC (17:47)
[2025-05-25] MEDS: LIPITOR 80 MG PO (17:47)
--- NOTE | 2025-05-25 18:20 | CON.MD ---
Documented by User: Brandy Govea PA-C 05/25/25 18:52
Consultation - Medical
-
Referring Provider: Aron Poole
Chief Complaint:�Stroke
�
History of Present Illness:�This is an 84-year-old right-handed female with PMH of (Hypothyroidism, NIDDM, HTN years ago) who presented to the hospital on 05/19/25 wit confusion and visual disturbance. Not being able to use her phone or the TV
remote because she couldn't see the numbers on them. Later in the day she tried to do laundry and was unable to figure out how to use the washing machine, prompting her family to send her to the ER for evaluation. CT head was obtained on arrival and
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 Blood pressure on arrival was 210/100. In the ED, Patient's blood pressure was slowly lowered with nicardipine
drip, Procardia and losartan were started and uptitrated but denied any improvement in her symptoms.
MRI imaging - Bilateral symmetric occipital lobe ischemic infarct. 8 mm left cerebellum and 3 mm right cerebellum infarct. Moderate chronic microvascular white matter ischemic change.
Patient was not a candidate for either tenecteplase or mechanical thrombectomy due to timeframe out of window and absence of clot for retrieval. Seen by neurology who recommended aspirin and Plavix for 21 days with lifelong aspirin.
During her hospitalization developed ISABEL resolved with IVF's, acute metabolic encephalopathy due to press and acute CVA, B12 deficiency that has been replenished by B12 supplements, hypokalemia given 15 g Kayexalate x 1
Patient seen and in her room this afternoon. Having hallucination. States that she was talking with her cousin on the phone and found herself on a yellow bus without a patrol driver. The windows were foggy. She came back home. Then came to her room
and there is a man lying in her bed all while I was talking with her in the room. He denies chest pain, shortness of breath, dizziness, lightheadedness, nausea, vomiting,.
�
Past Medical History:�Hypothyroidism, NIDDM, HTN , chronic back pain, urinary urgency, prolapsed bladder-per patient
Procedure History:�Appendectomy, thyroidectomy, right total knee arthroplasty
Family History: Dad�diabetes, heart disease, brother�diabetes, cancer�recently
�
Social History:�
Functional Level Premorbidly:�Independent with all activities�
Functional Level Currently:�Transfer�supervision, ambulated 140 feet x 2 with rolling walker�min assist for contact-guard patient frequently bumping the walker into object despite having him ample space to navigate. Grooming, toileting�min assist,
lower extremity self-care�mod assist, toilet transfer�min assist,
�
Tobacco:�Denies�
Alcohol:�Denies�
Drug use:�Denies�
�
Lives with:�Alone
24-hour assistance available:�
Number of floors:�1
# steps to enter:�3
# steps to second floor: None
Potential First floor set up:�Yes
Driving:�Yes
Occupation:�Retired
�
�
Allergies:�
Allergy/AdvReac Type Severity Reaction Status Date / Time
No Known Allergies Allergy Verified 08/22/24 14:15
�
Review of Systems:�
Constitutional: (x) Normal _
Eye: (x) abNormal _visual impairment
Ear/Nose/Throat: (x) Normal _
Respiratory: (x) Normal _
Cardiovascular: (x) abNormal _elevated BP
Gastrointestinal: (x) Normal _
Genitourinary: (x) Normal _
Musculoskeletal: (x) abNormal _chronic low back pain
Integumentary: (x) Normal _
Neurologic: (x) Normal _
Psychiatric: (x) abNormal _hallucinations
Endocrine: (x) Normal _
Hematologic/Lymphatic: (x) Normal _
Allergic/Immunologic: (x) Normal _
�
Medications:�
Active Current Visit Medication List
Category Date Time Status
Acetaminophen [Tylenol] Med 05/20/25 01:38 Active
650 mg PO Q4HPRN PRN
Aspirin Low Dose EC [Aspir Low (Enteric Coated)] Med 05/22/25 08:00 Active
81 mg PO DAILY
Atorvastatin [Lipitor] Med 05/21/25 18:00 Active
80 mg PO QPM
Bisacodyl [Dulcolax] Med 05/20/25 01:38 Active
10 mg RECTAL [id number] PRN
Calcium 200mg(Ca. Carb. 500mg) [Tums Chewable Tablet] Med 05/20/25 04:30 Active
400 mg PO Q4HPRN PRN
Clopidogrel Bisulfate [Plavix] Med 05/22/25 08:00 Active
75 mg PO DAILY
Cyanocobalamin [Vitamin B-12] Med 05/20/25 13:15 Active
1,000 mcg PO DAILY
Dextrose 50%-Water [Dextrose 50% Syringe] Med 05/20/25 01:38 Active
12.5 grams IV [id number] PRN
Docusate W/Senna [Senokot-S] Med 05/20/25 01:38 Active
1 tablet PO BIDPRN PRN
Enoxaparin Sodium [Lovenox] Med 05/20/25 18:00 Active
40 mg SC QPM
Flush (0.9% Sodium Chloride) [Flush (Nss)] Med 05/20/25 02:00 Active
See Dose Instructions IV PER PROTOCOL
Glucagon [GlucaGen] Med 05/20/25 01:38 Active
1 mg IM PRN PRN
HydrALAZINE [Apresoline] Med 05/20/25 19:14 Active
10 mg IV Q4HPRN PRN
Insulin Aspart Corrective Low [Novolog Flexpen-Low Med 05/20/25 07:30 Active
Resistance]
See Protocol SC AC
Levothyroxine [Synthroid] Med 05/20/25 06:00 Active
100 mcg PO DAILY @ 0600
Losartan [Cozaar] Med 05/22/25 08:00 Active
50 mg PO DAILY
NIFEdipine EXTENDED RELEASE [Procardia Xl (Extended Med 05/25/25 08:00 Active
Release)]
30 mg PO DAILY
NIFEdipine EXTENDED RELEASE [Procardia Xl (Extended Med 05/24/25 20:00 Active
Release)]
60 mg PO DAILY@2000
Polyethylene Glycol Powder [Miralax] Med 05/20/25 01:38 Active
17 grams PO DAILYPRN PRN
Sitagliptin Phosphate [Januvia] Med 05/20/25 08:00 Active
100 mg PO DAILY
�
Vitals:�
Temp Pulse Resp BP Pulse Ox
97.5 F 77 16 168/70 98
05/25/25 15:17 05/25/25 15:17 05/25/25 15:17 05/25/25 15:17 05/25/25 15:17
Height 5 ft
Actual Weight 74.2 kg
Body Mass Index (BMI) 31.9
�
Physical Exam:�
General Appearance/Observation: Well-developed, well-nourished individual in no apparent distress.�
Pain/Comfort Assessment: Low back pain
Mood/Affect: Appropriate�
�
Integumentary/Operative Site:�
�� Pressure Ulcer Evaluation: absent over heels.�
��
�� Other Type of Wound: absent�
��
�
Eyes: Conjunctiva/Lids: normal���� Pupils: pupils equal round and reactive to light and Accommodation�
Ears/Nose/Throat: oral mucosa moist,� throat clear.������������ Lips/Teeth/Gums: normal�
Neck: No muscle spasm or tenderness�
Cardiovascular: Heart: regular, no murmur�
Pulses: dorsalis pedis 2+ bilaterally�
Respiratory: Respiratory Effort/Chest Expansion: normal������� Auscultation: Clear to auscultation bilaterally�
Gastrointestinal: abdomen not tender, no distension, normal abdominal bowel sounds
Genitourinary: No [place]�
Extremities:�Edema: None�Cyanosis: None�Trophic�changes: None
�
Neurology Exam:
Orientation: Alert, Oriented to self, Time, Place�
Memory: Impaired,
Comprehension: Slow process
Two step command: Impaired
Naming: Intact-able to ID table, clock, TV
Calculation: Took some time but able to subtract by 3 starting from 20 down to 0.
Able to see clock on the wall- initially said 9:20 then self corrected with 6:20
Cranial Nerves:
�� CNII:�Pupillary light reflex: Intact����Visual Field: Visual field cut on the right,
�� CN III, IV, : Extraocular muscles: Intact�
�� CN V:�Facial Sensation�at�Forehead: Intact,�Maxilla: Intact,�Mandible: Intact
�� CN VII:�Facial movement: Symmetric
�� CN VIII:�Hearing: Normal
�� CN IX/X:�Speech & swallow: Normal,�Position of Uvula: Midline
�� CN XI:�Shoulder shrug: Symmetric
�� CN XII:�Tongue protrusion: Midline
Sensory:
�� Light touch: Intact in bilateral upper and lower extremities
��
�
Reflexes:
�� Biceps: 2+ bilaterally
�� Brachioradialis: 2+ bilaterally
�� Triceps: 2+ bilaterally
�� Patellar: 2+ bilaterally
�� Achilles: 2+ bilaterally
�� Babinski: Down going bilaterally
�� Clonus: None
�� Mairola: Negative bilaterally�
Cerebellar: Dysmetria/Ataxia:mild impairment on the right with finger to nose coordination
Musculoskeletal:
Motor: (Manual muscle scale 0-5)�
Muscle SA EF WE EE FF FA HF KE DF EHL PF
Right� 5 5 5 4+ 4+ 5 5 5 5 5 5
Left 5 5 5 4+ 4+ 5 5 5 5 5 5
�
Tone: Normal in all extremities�
Range of Motion: Passively within normal limits in all extremities�
�
Lab Results:
Laboratory Data
05/25/25 06:16
05/25/25 06:16
PT 13.8 Sec (11.4-14.6) 05/20/25 03:41
INR 1.03 05/20/25 03:41
APTT 29.1 Sec (23.4-35.0) 05/20/25 03:41
Total Bilirubin 0.4 mg/dl (0.2-1.3) 05/19/25 20:31
AST 24 U/L (14-36) 05/19/25 20:
ALT 21 U/L (0-35) 05/19/25 20:31
Alkaline Phosphatase 54 U/L (38-126) 05/19/25 20:31
Total Protein 7.6 g/dl (6.3-8.2) 05/19/25 20:
Albumin 4.5 g/dl (3.5-5.0) 05/19/25 20:31
�
Dignostic Results:�as per HPI�
MRI brain�05/21/2025
There is symmetric bilateral occipital lobe restricted diffusion, demonstrating increased signal intensity on diffusion imaging, associated with diminished signal intensity on ADC map. There is associated edema with effacement of the cerebral sulci.
No other significant mass effect. No evidence of hemorrhage. Findings consistent with ischemic infarct.
There is also a small linear infarct focus with restricted diffusion measuring approximately 8 mm in the left cerebellum, and a tiny 3 mm infarct in the right cerebellum.
Moderate chronic microvascular white matter ischemic changes. Age-appropriate atrophy. No hydrocephalus. No extra-axial collection.
The paranasal sinuses and mastoid air cells are clear.
Normal flow voids in the vascular structures at skull base.
IMPRESSION:
Bilateral symmetric occipital lobe ischemic infarct. 8 mm left cerebellum and 3 mm right cerebellum infarct.
Moderate chronic microvascular white matter ischemic change.
CT head and neck angio with/without IV
There is mild decreased attenuation about the lateral ventricles consistent with periventricular small vessel ischemic disease. There is no evidence of intracranial hemorrhage. This is a small area of loss of the arreaga-white matter differentiation in
the left occipital lobe concerning for subacute infarct. This area measures 1.6 x 1.0 cm. There is a similar finding on the right measuring roughly 2.0 x 1.3 cm. Considering the symmetry, other etiologies such as posterior reversible encephalopathy
syndrome should be considered.. There is no midline shift or mass effect. There is mild ventricle sulcal prominence consistent with atrophy. The imaged sinuses are clear.
Head and neck angiogram:
There is no M1 nor M2 occlusion. There is no carotid dissection. There is no focal stenosis. There is moderate calcified plaque in the carotid siphon bilaterally. The posterior circulation is intact. The left vertebral artery ends in the left PICA.
Enhanced brain parenchyma is unremarkable.
The salivary glands are within normal limits.
There is several bilateral subcentimeter cervical lymph nodes. There are a few enlarged lymph nodes bilaterally. The largest lymph node is on the left and measures 1.7 x 0.7 cm. The airway is unremarkable. The imaged lungs are clear.
There is moderate C5/C6 and mild C4/C5 degenerative disc disease. There is mild anterior osteophyte formation of the anterior cervical spine consistent with degenerative disease.
IMPRESSION: Bilateral occipital lobe changes concerning for PRES syndrome versus small subacute infarcts. Slightly more distinct on the current study. The patient is scheduled for MRI of the brain today
Mild periventricular small vessel ischemic disease. Stable
Mild atrophy. Stable
No acute vascular pathology. No evidence of M1 nor M2 occlusion. No focal stenosis.
Mild bilateral cervical lymphadenopathy. Nonspecific.
Chest x-ray�05/21/2025
Lungs: No convincing focal infiltrates. No significant pleural effusions. No visualized pneumothorax.
Heart: Stable enlargement of the cardiomediastinal silhouette. No overt pulmonary vascular congestion.
Osseous structures: No acute abnormalities.
IMPRESSION:
No acute cardiopulmonary process.
�
Assessment: 84-year-old patient with abrupt onset of change in mental status and visual disturbance. CT of head suggested posterior reversible encephalopathy syndrome while the patient had extremely high blood pressure and MRI with acute ischemic
strokes in bilateral occipital lobes
Plan�
PM&R�PT/OT to increase independence with ADLs, improve balance, coordination, endurance, strength, mobility, community reintegration, decreased burden of care on others and family education.�
�
CVA: Secondary prophylaxis with aspirin and Plavix for 21 days followed by aspirin lifelong, statin, and blood pressure control (SBP less than 180 and diastolic less than 100 to participate with therapy for ischemic stroke). Continue to monitor
neurologic status
Cognitive impairment: Speech evaluation
Right visual impairment: makes patient at risk for fall
Hallucinations: Seeing a man lying on her bed. Was on a yellow bus without a patrol driver while talking to me. Neurology or psych to address prior to discharge
Uncontrolled HTN: Losartan 50 mg daily, nifedipine XL 60 mg daily, nifedipine XL 30 mg daily, hydralazine 10 mg IV every 4 as needed
HLD: Atorvastatin 80 mg every afternoon
Diabetes: Januvia 100 mg daily
Hypothyroidism: Levothyroxine 100 mcg daily
B12 deficiency: B12 1000 mcg daily
Psych: Psychology consult.� Monitor mood, adjust medications as needed.�
Skin: monitor for pressure sores/rashes/lesions.�
Pain: acetaminophen as needed.�
Bowel: Colace and Senna, PRN bisacodyl.� MiraLAX 17 g
Bladder: Time void, PVRs, PRN straight cath.�
GI Prophylaxis: Would recommend adding pantoprazole�while on Plavix and aspirin
DVT Prophylaxis: Mechanical and Lovenox
Pulmonary: Incentive spirometry�
Obesity: Continue to student financial services counselor patient about diet adjustments to control obesity. Body habitus and increased force to move body and extremities causes further difficulty with functional tasks.�
Safety: Continue to reinforce assistance with all transfers.�
Code Status:� Full code
Dispo�(date/plan/equipment needs): Home with family care.� Social history reviewed.�
�
Functional and Medical Goals:�Modified Independent with ADL�s, ambulation, transfers�
�
Discharge Destination:�Patient would benefit from acute inpatient rehabilitation once medically stable, blood pressure has been under control for at least 24 hours and hallucinations addressed for PT/OT to increase independence with ADLs, improve
balance, coordination, endurance, strength, mobility, community reintegration.
�
Summary of recommendations:
Hallucinations: Seeing a man lying on her bed. Was on a yellow bus without a patrol driver while talking to me. Address with neurology or psychiatry prior to discharge
CVA: Secondary prophylaxis with aspirin and Plavix for 21 days followed by aspirin lifelong, statin, and blood pressure control (SBP less than 180 and diastolic less than 100 to participate with therapy for ischemic stroke). Continue to monitor
neurologic status
Hypertension: Must be under control for at least 24 hours prior to discharge on oral medications only
GI Prophylaxis: Would recommend adding pantoprazole�while on Plavix and aspirin
Thank you for allowing me to care for your patient. Please contact me with any questions or concerns.

Documented by User: Gray Gamino MD 05/27/25 00:12
Consultation - Medical
-
Referring Provider: Aron Poole
Chief Complaint:�Stroke
�
History of Present Illness:�84-year-old right-handed female with PMH of (Hypothyroidism, NIDDM, HTN years ago) who presented to the hospital on 05/19/25 with confusion and visual disturbance. Not being able to use her phone or the TV remote because
she couldn't see the numbers on them. Later in the day she tried to do laundry and was unable to figure out how to use the washing machine, prompting her family to send her to the ER for evaluation. CT head was obtained on arrival and is suggestive
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 Blood pressure on arrival was 210/100. In the ED, Patient's blood pressure was slowly lowered with nicardipine drip,
Procardia and losartan were started and uptitrated but denied any improvement in her symptoms.
MRI imaging - Bilateral symmetric occipital lobe ischemic infarct. 8 mm left cerebellum and 3 mm right cerebellum infarct. Moderate chronic microvascular white matter ischemic change.
Patient was not a candidate for either tenecteplase or mechanical thrombectomy due to timeframe out of window and absence of clot for retrieval. Seen by neurology who recommended aspirin and Plavix for 21 days with lifelong aspirin.
During her hospitalization developed ISABEL resolved with IVF's, acute metabolic encephalopathy due to press and acute CVA, B12 deficiency that has been replenished by B12 supplements, hypokalemia given 15 g Kayexalate x 1
Patient seen and in her room this afternoon. Having hallucination. States that she was talking with her cousin on the phone and found herself on a yellow bus without a patrol driver. The windows were foggy. She came back home. Then came to her room
and there is a man lying in her bed all while I was talking with her in the room. He denies chest pain, shortness of breath, dizziness, lightheadedness, nausea, vomiting,.
�
Past Medical History:�Hypothyroidism, NIDDM, HTN , chronic back pain, urinary urgency, prolapsed bladder-per patient
Procedure History:�Appendectomy, thyroidectomy, right total knee arthroplasty
Family History: Dad�diabetes, heart disease, brother�diabetes, cancer�recently
�
Social History:�
Functional Level Premorbidly:�Independent with all activities�
Functional Level Currently:�Transfer�supervision, ambulated 140 feet x 2 with rolling walker�min assist for contact-guard patient frequently bumping the walker into object despite having him ample space to navigate. Grooming, toileting�min assist,
lower extremity self-care�mod assist, toilet transfer�min assist,
�
Tobacco:�Denies�
Alcohol:�Denies�
Drug use:�Denies�
�
Lives with:�Alone
24-hour assistance available:�No
Number of floors:�1
# steps to enter:�3
# steps to second floor: None
Potential First floor set up:�Yes
Driving:�Yes
Occupation:�Retired
�
�
Allergies:�
Allergy/AdvReac Type Severity Reaction Status Date / Time
No Known Allergies Allergy Verified 08/22/24 14:15
�
Review of Systems:�
Constitutional: (x) Normal _
Eye: (x) abNormal _visual impairment, sees things she knows are not there.
Ear/Nose/Throat: (x) Normal _
Respiratory: (x) Normal _
Cardiovascular: (x) abNormal _elevated BP
Gastrointestinal: (x) Normal _
Genitourinary: (x) abNormal _ uterine prolapse, no longer has pessary, needs a new one.
Musculoskeletal: (x) abNormal _chronic low back pain
Integumentary: (x) Normal _
Neurologic: (x) Normal _
Psychiatric: (x) abNormal _hallucinations
Endocrine: (x) Normal _
Hematologic/Lymphatic: (x) Normal _
Allergic/Immunologic: (x) Normal _
�
Medications:�
Active Current Visit Medication List
Category Date Time Status
Acetaminophen [Tylenol] Med 05/20/25 01:38 Active
650 mg PO Q4HPRN PRN
Aspirin Low Dose EC [Aspir Low (Enteric Coated)] Med 05/22/25 08:00 Active
81 mg PO DAILY
Atorvastatin [Lipitor] Med 05/21/25 18:00 Active
80 mg PO QPM
Bisacodyl [Dulcolax] Med 05/20/25 01:38 Active
10 mg RECTAL [id number] PRN
Calcium 200mg(Ca. Carb. 500mg) [Tums Chewable Tablet] Med 05/20/25 04:30 Active
400 mg PO Q4HPRN PRN
Clopidogrel Bisulfate [Plavix] Med 05/22/25 08:00 Active
75 mg PO DAILY
Cyanocobalamin [Vitamin B-12] Med 05/20/25 13:15 Active
1,000 mcg PO DAILY
Dextrose 50%-Water [Dextrose 50% Syringe] Med 05/20/25 01:38 Active
12.5 grams IV [id number] PRN
Docusate W/Senna [Senokot-S] Med 05/20/25 01:38 Active
1 tablet PO BIDPRN PRN
Enoxaparin Sodium [Lovenox] Med 05/20/25 18:00 Active
40 mg SC QPM
Flush (0.9% Sodium Chloride) [Flush (Nss)] Med 05/20/25 02:00 Active
See Dose Instructions IV PER PROTOCOL
Glucagon [GlucaGen] Med 05/20/25 01:38 Active
1 mg IM PRN PRN
HydrALAZINE [Apresoline] Med 05/20/25 19:14 Active
10 mg IV Q4HPRN PRN
Insulin Aspart Corrective Low [Novolog Flexpen-Low Med 05/20/25 07:30 Active
Resistance]
See Protocol SC AC
Levothyroxine [Synthroid] Med 05/20/25 06:00 Active
100 mcg PO DAILY @ 0600
Losartan [Cozaar] Med 05/22/25 08:00 Active
50 mg PO DAILY
NIFEdipine EXTENDED RELEASE [Procardia Xl (Extended Med 05/25/25 08:00 Active
Release)]
30 mg PO DAILY
NIFEdipine EXTENDED RELEASE [Procardia Xl (Extended Med 05/24/25 20:00 Active
Release)]
60 mg PO DAILY@2000
Polyethylene Glycol Powder [Miralax] Med 05/20/25 01:38 Active
17 grams PO DAILYPRN PRN
Sitagliptin Phosphate [Januvia] Med 05/20/25 08:00 Active
100 mg PO DAILY
�
Vitals:�
Temp Pulse Resp BP Pulse Ox
97.5 F 77 16 168/70 98
05/25/25 15:17 05/25/25 15:17 05/25/25 15:17 05/25/25 15:17 05/25/25 15:17
Height 5 ft
Actual Weight 74.2 kg
Body Mass Index (BMI) 31.9
�
Physical Exam:�
General Appearance/Observation: Well-developed, well-nourished female in no apparent distress.�
Pain/Comfort Assessment: Low back pain
Mood/Affect: Appropriate�
�
Integumentary/Operative Site:�
�� Pressure Ulcer Evaluation: absent over heels.�
�
Eyes: Conjunctiva/Lids: normal���� Pupils: pupils equal round and reactive to light and Accommodation�
Ears/Nose/Throat: oral mucosa moist,� throat clear.������������ Lips/Teeth/Gums: normal�
Neck: No muscle spasm or tenderness�
Cardiovascular: Heart: regular, no murmur�
Pulses: dorsalis pedis 2+ bilaterally�
Respiratory: Respiratory Effort/Chest Expansion: normal������� Auscultation: Clear to auscultation bilaterally�
Gastrointestinal: abdomen not tender, no distension, normal abdominal bowel sounds
Genitourinary: No [place]�
Extremities:�Edema: None�Cyanosis: None�Trophic�changes: None
�
Neurology Exam:
Orientation: Alert, Oriented to self, Time, Place�
Memory: Impaired,
Comprehension: Slow process
Two step command: Impaired
Naming: Intact-able to ID table, clock, TV
Calculation: Took some time but able to subtract by 3 starting from 20 down to 0.
Able to see clock on the wall- initially said 9:20 then self corrected with 6:20
Cranial Nerves:
�� CNII:�Pupillary light reflex: Intact����Visual Field: Visual field cut on the right,
�� CN III, IV, : Extraocular muscles: Intact�
�� CN V:�Facial Sensation�at�Forehead: Intact,�Maxilla: Intact,�Mandible: Intact
�� CN VII:�Facial movement: Symmetric
�� CN VIII:�Hearing: Normal
�� CN IX/X:�Speech & swallow: Normal,�Position of Uvula: Midline
�� CN XI:�Shoulder shrug: Symmetric
�� CN XII:�Tongue protrusion: Midline
Sensory:
�� Light touch: Intact in bilateral upper and lower extremities
��
�
Reflexes:
�� Biceps: 2+ bilaterally
�� Brachioradialis: 2+ bilaterally
�� Triceps: 2+ bilaterally
�� Patellar: 2+ bilaterally
�� Achilles: 2+ bilaterally
�� Babinski: Down going bilaterally
�� Clonus: None
�� Mariola: Negative bilaterally�
Cerebellar: Dysmetria/Ataxia:mild impairment on the right with finger to nose coordination
Musculoskeletal:
Motor: (Manual muscle scale 0-5)�
Muscle SA EF WE EE FF FA HF KE DF EHL PF
Right� 5 5 5 4+ 4+ 5 5 5 5 5 5
Left 5 5 5 4+ 4+ 5 5 5 5 5 5
�
Tone: Normal in all extremities�
Range of Motion: Passively within normal limits in all extremities�
�
Lab Results:
Laboratory Data
05/25/25 06:16
05/25/25 06:16
PT 13.8 Sec (11.4-14.6) 05/20/25 03:41
INR 1.03 05/20/25 03:41
APTT 29.1 Sec (23.4-35.0) 05/20/25 03:41
Total Bilirubin 0.4 mg/dl (0.2-1.3) 05/19/25 20:31
AST 24 U/L (14-36) 05/19/25 20:31
ALT 21 U/L (0-35) 05/19/25 20:31
Alkaline Phosphatase 54 U/L (38-126) 05/19/25 20:31
Total Protein 7.6 g/dl (6.3-8.2) 05/19/25 20:31
Albumin 4.5 g/dl (3.5-5.0) 05/19/25 20:31
�
Dignostic Results:�as per HPI�
MRI brain�05/21/2025
There is symmetric bilateral occipital lobe restricted diffusion, demonstrating increased signal intensity on diffusion imaging, associated with diminished signal intensity on ADC map. There is associated edema with effacement of the cerebral sulci.
No other significant mass effect. No evidence of hemorrhage. Findings consistent with ischemic infarct.
There is also a small linear infarct focus with restricted diffusion measuring approximately 8 mm in the left cerebellum, and a tiny 3 mm infarct in the right cerebellum.
Moderate chronic microvascular white matter ischemic changes. Age-appropriate atrophy. No hydrocephalus. No extra-axial collection.
The paranasal sinuses and mastoid air cells are clear.
Normal flow voids in the vascular structures at skull base.
IMPRESSION:
Bilateral symmetric occipital lobe ischemic infarct. 8 mm left cerebellum and 3 mm right cerebellum infarct.
Moderate chronic microvascular white matter ischemic change.
CT head and neck angio with/without IV
There is mild decreased attenuation about the lateral ventricles consistent with periventricular small vessel ischemic disease. There is no evidence of intracranial hemorrhage. This is a small area of loss of the arreaga-white matter differentiation in
the left occipital lobe concerning for subacute infarct. This area measures 1.6 x 1.0 cm. There is a similar finding on the right measuring roughly 2.0 x 1.3 cm. Considering the symmetry, other etiologies such as posterior reversible encephalopathy
syndrome should be considered.. There is no midline shift or mass effect. There is mild ventricle sulcal prominence consistent with atrophy. The imaged sinuses are clear.
Head and neck angiogram:
There is no M1 nor M2 occlusion. There is no carotid dissection. There is no focal stenosis. There is moderate calcified plaque in the carotid siphon bilaterally. The posterior circulation is intact. The left vertebral artery ends in the left PICA.
Enhanced brain parenchyma is unremarkable.
The salivary glands are within normal limits.
There is several bilateral subcentimeter cervical lymph nodes. There are a few enlarged lymph nodes bilaterally. The largest lymph node is on the left and measures 1.7 x 0.7 cm. The airway is unremarkable. The imaged lungs are clear.
There is moderate C5/C6 and mild C4/C5 degenerative disc disease. There is mild anterior osteophyte formation of the anterior cervical spine consistent with degenerative disease.
IMPRESSION: Bilateral occipital lobe changes concerning for PRES syndrome versus small subacute infarcts. Slightly more distinct on the current study. The patient is scheduled for MRI of the brain today
Mild periventricular small vessel ischemic disease. Stable
Mild atrophy. Stable
No acute vascular pathology. No evidence of M1 nor M2 occlusion. No focal stenosis.
Mild bilateral cervical lymphadenopathy. Nonspecific.
Chest x-ray�05/21/2025
Lungs: No convincing focal infiltrates. No significant pleural effusions. No visualized pneumothorax.
Heart: Stable enlargement of the cardiomediastinal silhouette. No overt pulmonary vascular congestion.
Osseous structures: No acute abnormalities.
IMPRESSION:
No acute cardiopulmonary process.
�
Assessment:
84-year-old Right handed F PMH (Hypothyroidism, NIDDM, HTN , chronic back pain, urinary urgency, prolapsed bladder) with abrupt onset of change in mental status and visual disturbance. CT of head suggested posterior reversible encephalopathy
syndrome while the patient had extremely high blood pressure and MRI with acute ischemic strokes in bilateral occipital lobes resulting in ADL and ambulatory dysfunction.
Plan�
PM&R�PT/OT to increase independence with ADLs, improve balance, coordination, endurance, strength, mobility, community reintegration, decreased burden of care on others and family education.�
�
Acute ischemic strokes in B/L occipital lobes, visual changes, and PRES due to Hypertensive Emergency: Secondary prophylaxis with aspirin and Plavix for 21 days followed by aspirin lifelong, statin, and blood pressure control (SBP less than 180 and
diastolic less than 100 to participate with therapy for ischemic stroke). Continue to monitor neurologic status
Cognitive impairment: Speech evaluation
Right visual impairment: makes patient at risk for fall
Hallucinations: Seeing a man lying on her bed. Was on a yellow bus without a patrol driver while talking to me. Possibly related to visual disturbances in the occipital lobes.
Uncontrolled HTN: Losartan 50 mg daily, nifedipine XL 60 mg daily, nifedipine XL 30 mg daily, hydralazine 10 mg IV every 4 as needed
HLD: Atorvastatin 80 mg every afternoon
Diabetes: Januvia 100 mg daily
Hypothyroidism: Levothyroxine 100 mcg daily
B12 deficiency: B12 1000 mcg daily
Psych: Psychology consult.� Monitor mood, adjust medications as needed.�
Skin: monitor for pressure sores/rashes/lesions.�
Pain: acetaminophen as needed.�
Bowel: Colace and Senna, PRN bisacodyl.� MiraLAX 17 g
Bladder: Time void, PVRs, PRN straight cath.�
GI Prophylaxis: Would recommend adding pantoprazole�while on Plavix and aspirin
DVT Prophylaxis: Mechanical and Lovenox
Pulmonary: Incentive spirometry�
Obesity: Continue to student financial services counselor patient about diet adjustments to control obesity. Body habitus and increased force to move body and extremities causes further difficulty with functional tasks.�
Safety: Continue to reinforce assistance with all transfers.�
Code Status:� Full code
Dispo�(date/plan/equipment needs): Home with family care.� Social history reviewed.�
Functional and Medical Goals:�Modified Independent with ADL�s, ambulation, transfers�
Discharge Destination:�Patient would benefit from acute inpatient rehabilitation once medically stable, blood pressure has been under control for at least 24 hours and hallucinations addressed for PT/OT to increase independence with ADLs, improve
balance, coordination, endurance, strength, mobility, community reintegration.
Attending Statement: I saw and examined the patient on 05/26/25.� Reviewed care plan with patient, therapy, nursing, and physician psychological assistant.� I agree with the above subjective and physical exam, and plan as documented by MERCEDES Govea with
adjustments made as necessary. A total of 60 minutes were spent with the patient preparing for the evaluation, obtaining history, performing examination and evaluation, counseling, data review, case management, care coordination, service order clerk, and
EMR documentation.
�
Summary of recommendations:
Hallucinations: likely related to occipital lobe lesions.
Acute ischemic strokes in B/L occipital lobes, visual changes, and PRES due to Hypertensive Emergency: Secondary prophylaxis with aspirin and Plavix for 21 days followed by aspirin lifelong, statin, and blood pressure control (SBP less than 180 and
diastolic less than 100 to participate with therapy for ischemic stroke). Continue to monitor neurologic status
Hypertension: Must be under control for at least 24 hours prior to discharge on oral medications only
GI Prophylaxis: Would recommend adding pantoprazole�while on Plavix and aspirin
Thank you for allowing me to care for your patient. Please contact me with any questions or concerns.
--- NOTE | 2025-05-25 18:39 | PTCARENOTE ---
Pt hallucinating at this time, but easily reoriented. Pt knows she's hallucinating and is able to tell you she is. Bed alarm armed and audible. All personal items and call light within reach.
[2025-05-25] MEDS: PROCARDIA XL (EXTENDED RELEASE) 60 MG PO (20:03)
[2025-05-25] MEDS: MELATONIN 5 MG PO (21:02)
[2025-05-25 21:43] LABS: Glucose - Point of Care 120 mg/dl (70-99)
--- NOTE | 2025-05-26 00:19 | W.PN.UPDATE ---
Update Note
Progress Note Update
RN reports patient hallucinating requesting Melatonin to help sleep. Melatonin ordered
few minutes later RN reports patient is being aggressive and now RN asking for something stronger.
IV Valium order in place
patient's son at bedside refused to give Valium, he belives it makes things worse and is requesting just melatonin. Patient son is staying at the bedside today. Melatonin order is in place.
--- NOTE | 2025-05-26 03:39 | PTCARENOTE ---
Pt. with hallucinations, believing that her room was changed and all of her '1940's pictures' were taken off the wall. Pt. telling this RN that she was out to lunch earlier and was on a bus after. Son at bedside. FELI Hernandez notified. Patient
getting verbally agressive with son. Valium ordered. Pt. son stated that valium made her 'crazier' in ICU. FELI Hernandez notified. Melatonin ordered and administered per orders. Son at bedside with patient all night. Plan of care ongoing.
[2025-05-26 07:35] VITALS: BP 172/88
[2025-05-26 08:01] LABS: Glucose - Point of Care 111 mg/dl (70-99)
[2025-05-26] MEDS: NOVOLOG FLEXPEN-LOW RESISTANCE SC ×3 (08:02→18:16)
[2025-05-26] MEDS: VITAMIN B-12 1000 MCG PO (08:03)
[2025-05-26] MEDS: SYNTHROID 100 MCG PO (08:03)
[2025-05-26] MEDS: ASPIR LOW (ENTERIC COATED) 81 MG PO (08:03)
[2025-05-26] MEDS: COZAAR 50 MG PO (08:03)
[2025-05-26] MEDS: JANUVIA 100 MG PO (08:04)
[2025-05-26] MEDS: PLAVIX 75 MG PO (08:04)
[2025-05-26] MEDS: PROCARDIA XL (EXTENDED RELEASE) 30 MG PO (08:04)
[2025-05-26 08:17] LABS: Hematocrit 45.8 % (37.0-47.0); Hemoglobin 14.8 g/dL (12.0-16.0); Mean Corp Hgb Conc. 32.3 g/dL (33.0-37.0); Mean Corpuscular Volume 89.3 fL (81.0-99.0); Platelet Count 208 10^3/uL (130-400); Red Cell Dist. Width 12.7 % (11.5-14.5)
--- NOTE | 2025-05-26 08:58 | W.PN.HOSP.TC ---
Today's Communication/Plan
-
See plan
Assessment / Plan
Assessment / Plan
84 yo woman with hx DM II, hypothyroidism presents to the ER with headache and abnormal peripheral vision in both eyes.
Gen: NAD, Awake and alert
Eyes: EOMI, PERRLA, no scleral icterus.
Neck: supple.
CV: RRR, +S1/S2, 1/6 systolic murmur
Resp: CTAB anteriorly, no rales, wheezes, or rhonchi.
Abd: remains +BS, soft, NT, ND
Skin: No rashes.
Neuro: CN 2-12 intact, non-focal.
Psych: Normal mood and affect.
CT Brain: Subtle decreased density within the posterior occipital lobes bilaterally, fairly symmetric between right and left. 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
As warranted, further evaluation with MRI of the brain could be considered.
MRI brain: Bilateral symmetric occipital lobe ischemic infarct. 8 mm left cerebellum and 3 mm right cerebellum infarct. Moderate chronic microvascular white matter ischemic change.
Acute ischemic strokes in B/L occipital lobes, visual changes, and PRES due to Hypertensive Emergency
-imaging above
-was on Nicardipine gtt in ER, now off
-Procardia and Losartan started, uptitrated
-start HCTZ
-Intermittent eye misalignment: most likely due to defect in brain orientation for vision due to acute CVAs. Recommend appointment with Dr. Leila Souza in [place] for ocular retraining (although may not be tremendously helpful based on the
severity of her bioccipital lesions).
-cont DAPT x 21 days, statin
-Hydralazine IV PRN (last dose 05/21)
Other problems:
Hyperkalemia: s/p 15g kayexalate x 1
HLD: cont statin
ISABEL: resolved with IVFs
Acute Metabolic encephalopathy/hallucinations: due to PRES and acute CVAs
B12 deficiency
Hypothyroidism: cont Synthroid
DM2: cont Januvia/SSI
FULL/Lovenox
Medically cleared for d/c. Case management aware.
Anticipated Discharge: Today
Subjective/Interval History
-
Date of Service: May 26, 2025
Objective Data
-
Labs:
Laboratory Results
05/26/25
07:54
WBC 8.4
Hgb 14.8
Hct 45.8
Plt Count 208
Vital Signs:
Vital Signs
Temp Pulse Resp BP Pulse Ox
97.8 F 61 16 172/88 98
05/26/25 07:35 05/26/25 07:35 05/26/25 07:35 05/26/25 07:35 05/26/25 07:35
I&O
05/25/25 05/26/25 05/27/25
06:59 06:59 06:59
Intake Total 2119 1080 / 1080
Balance 2119 1080 / 1080
[2025-05-26] MEDS: ORETIC 25 MG PO (09:53)
--- NOTE | 2025-05-26 10:10 | CM ---
Addendum entered by Aimee Esparza 05/26/25 13:33:
Patient accepted to [facility] when auth confirmed per liaison. CM faxed clinical information to [employer] [phone]/verbal [phone]. Await confirmation of authorization. CM will update patient and family.
Original Note:
Patient seen at bedside with son present. Patient verbalized her concerns and asked if Dr. Gamino had been in to see Patient. Patient seen by MERCEDES Govea and recommendation is for acute rehab when medically stable. Await physician assessment; not
available until rounds. CM will continue to follow for discharge planning needs.
Plan; [facility]; acute rehab when medically appropriate and bed available; will need auth
[2025-05-26 10:50] LABS: Blood Urea Nitrogen 21 mg/dl (7-17); Calcium 9.1 mg/dl (8.4-10.2); Carbon Dioxide 27 mmol/L (22-30); Chloride 107 mmol/L (98-107); Estimated Creatinine Clearance 41 ml/min; Glucose 110 mg/dl (70-99); Potassium 4.5 mmol/L (3.5-5.1); Sodium 139 mmol/L (135-145); eGFR > 60.00
[2025-05-26 11:10] VITALS: BP 135/71
[2025-05-26 11:51] LABS: Glucose - Point of Care 109 mg/dl (70-99)
[2025-05-26 15:48] VITALS: BP 170/73
[2025-05-26 16:31] VITALS: BP 169/69; PULSE 64; O2SAT 99
[2025-05-26 18:06] LABS: Glucose - Point of Care 122 mg/dl (70-99)
[2025-05-26] MEDS: LIPITOR 80 MG PO (18:16)
[2025-05-26] MEDS: LOVENOX 40 MG SC (18:17)
[2025-05-26 19:21] VITALS: BP 156/64
[2025-05-26] MEDS: PROCARDIA XL (EXTENDED RELEASE) 60 MG PO (20:42)
[2025-05-26 21:29] LABS: Glucose - Point of Care 149 mg/dl (70-99)
[2025-05-26] MEDS: MELATONIN 5 MG PO (22:32)
[2025-05-26 22:59] VITALS: BP 156/77
[2025-05-27] MEDS: SYNTHROID 100 MCG PO (05:14)
[2025-05-27 07:00] VITALS: BP 137/69
[2025-05-27] MEDS: VITAMIN B-12 1000 MCG PO (07:39)
[2025-05-27] MEDS: JANUVIA 100 MG PO (07:39)
[2025-05-27] MEDS: COZAAR 50 MG PO (07:40)
[2025-05-27] MEDS: PROCARDIA XL (EXTENDED RELEASE) 30 MG PO (07:40)
[2025-05-27] MEDS: ASPIR LOW (ENTERIC COATED) 81 MG PO (07:41)
[2025-05-27] MEDS: PLAVIX 75 MG PO (07:41)
[2025-05-27] MEDS: ORETIC 25 MG PO (07:41)
[2025-05-27 07:45] LABS: Blood Urea Nitrogen 26 mg/dl (7-17); Calcium 9.1 mg/dl (8.4-10.2); Carbon Dioxide 27 mmol/L (22-30); Chloride 104 mmol/L (98-107); Estimated Creatinine Clearance 41 ml/min; Glucose 114 mg/dl (70-99); Potassium 3.9 mmol/L (3.5-5.1); Sodium 138 mmol/L (135-145); eGFR > 60.00
--- NOTE | 2025-05-27 07:54 | W.PN.HOSP.TC ---
Addendum entered and electronically signed by Jean-Paul Mattson MD 05/27/25 12:32:
Total time spent on d/c = 35 min. This included today's physical exam, progress note, review of laboratory and diagnostic data, preparation of discharge documents and prescriptions, and discussions about the pt's hospital course and discharge plan
with the patient and other medical device sales representative involved in the patient's care.
Original Note:
Today's Communication/Plan
-
d/c
Assessment / Plan
Assessment / Plan
84 yo woman with hx DM II, hypothyroidism presents to the ER with headache and abnormal peripheral vision in both eyes.
Gen: NAD, Awake and alert
Eyes: EOMI, PERRLA, no scleral icterus.
Neck: supple.
CV: remains RRR, +S1/S2, 1/6 systolic murmur
Resp: remains CTAB anteriorly, no rales, wheezes, or rhonchi.
Abd: continues to remain +BS, soft, NT, ND
Skin: No rashes.
Neuro: CN 2-12 intact, non-focal.
Psych: Normal mood and affect.
CT Brain: Subtle decreased density within the posterior occipital lobes bilaterally, fairly symmetric between right and left. 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
As warranted, further evaluation with MRI of the brain could be considered.
MRI brain: Bilateral symmetric occipital lobe ischemic infarct. 8 mm left cerebellum and 3 mm right cerebellum infarct. Moderate chronic microvascular white matter ischemic change.
Acute ischemic strokes in B/L occipital lobes, visual changes, and PRES due to Hypertensive Emergency
-imaging above
-was on Nicardipine gtt in ER, now off
-cont Procardia/Losartan/HCTZ
-Intermittent eye misalignment: most likely due to defect in brain orientation for vision due to acute CVAs. Recommend appointment with Dr. Leila Souza in [place] for ocular retraining (although may not be tremendously helpful based on the
severity of her bioccipital lesions).
-cont DAPT x 21 days, statin
-Hydralazine IV PRN (last dose 05/21)
Other problems:
Hyperkalemia, resolved s/p 15g Kayexalate
HLD: cont statin
ISABEL: resolved with IVFs
Acute Metabolic encephalopathy/hallucinations: due to PRES and acute CVAs
B12 deficiency
Hypothyroidism: cont Synthroid
DM2: cont Januvia/SSI
FULL/Lovenox
Remains medically cleared for d/c since 05/26/25AM. Case management aware.
Anticipated Discharge: Today
Subjective/Interval History
-
Date of Service: May 27, 2025
No new complaints.
Objective Data
-
Labs:
Laboratory Results
05/27/25
06:28
Sodium 138
Potassium 3.9
Chloride 104
Carbon Dioxide 27
BUN 26 H
Creatinine 0.9
Glucose 114 H
Calcium 9.1
Vital Signs:
Vital Signs
Temp Pulse Resp BP Pulse Ox
97.9 F 59 18 137/69 98
05/27/25 07:00 05/27/25 07:00 05/27/25 07:00 05/27/25 07:00 05/27/25 07:00
I&O
05/26/25 05/27/25 05/28/25
06:59 06:59 06:59
Intake Total 1080 / 1080 720 / 720
Balance 1080 / 1080 720 / 720
[2025-05-27 07:58] LABS: Glucose - Point of Care 117 mg/dl (70-99)
[2025-05-27] MEDS: NOVOLOG FLEXPEN-LOW RESISTANCE SC ×2 (08:15→12:11)
--- NOTE | 2025-05-27 08:42 | CM ---
Addendum entered by Laureen Gutierrez 05/27/25 11:20:
AUTH APPROVED FOR [facility] TODAY
AUTH #: [id number]
start 05/27/25, NRD 06/02/25
fax updates to [phone]
Notified hospitalist
CM called Lisa from [facility] & gave auth information
IMM explained & signed. In chart
PLAN: [facility] today
Report #: [phone]
Fax #: [phone]
Original Note:
clinicals were faxed yesterday to [employer] [phone] for [facility]
CM called this am to check on authorization at [phone].
Await confirmation of authorization
Left message with Lisa Gan liatruman at [facility] - [phone]
PLAN: [facility], once authorization is approved
[2025-05-27 12:11] LABS: Glucose - Point of Care 135 mg/dl (70-99)
[2025-05-27 14:42] VITALS: BP 151/80
--- NOTE | 2025-05-27 15:25 | W.DCSUMMARY ---
Discharge Summary
Discharge Data
Date of Admission: 05/20/25
Date of Discharge: 05/27/25
-
Pending Results: No
Hospital Course
Primary diagnoses:
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
Visual hallucinations due to occipital strokes
Secondary diagnoses:
Hyperkalemia
Hyperlipidemia
Acute kidney injury
Acute Metabolic encephalopathy
B12 deficiency
Hypothyroidism
Type 2 diabetes mellitus
Consultants:
Neurology
Pulmonary/critical care medicine
Physiatry
Imaging:
CT Brain: Subtle decreased density within the posterior occipital lobes bilaterally, fairly symmetric between right and left. 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
As warranted, further evaluation with MRI of the brain could be considered.
MRI brain: Bilateral symmetric occipital lobe ischemic infarct. 8 mm left cerebellum and 3 mm right cerebellum infarct. Moderate chronic microvascular white matter ischemic change.
Hospital course: 84-year-old female who presented with a chief complaint of 'vision problems' as outlined in H&P done on admission. On admission the patient had hypertensive emergency as well as posterior reversible encephalopathy syndrome. She
was placed on a nicardipine drip which was weaned off. She was started antihypertensive medications and at time of discharge was on Procardia/Losartan/HCTZ. MRI brain above, notable for bilateral symmetric occipital lobe ischemic infarcts as well
as bilateral cerebellar infarcts. She had intermittent eye misalignment which was most likely due to defect in brain orientation for vision due to acute CVAs. Recommend appointment with Dr. Leila Souza in [place] for ocular retraining (although
may not be tremendously helpful based on the severity of her bioccipital lesions). She was placed on dual antiplatelet therapy and will remain on Plavix for total of 21 days. She will remain on aspirin and statin thereafter. Patient was
discharged to [facility] in medically stable condition.
Discharge Plan
-
Patient Disposition: Acute Rehab Facility
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 Visual hallucinations due to occipital strokes.
Condition: Good
Diet: 2 Gram Sodium and Diabetic, Carb Controlled
Activity: With assistance and As tolerated
Driving Restrictions: Not until seen by your Dr
Referrals:
Jos Lazcano MD [Active, Neurology] - in four to six weeks
Caden Rios DO [Family Provider, [facility]] - in less than 1 week
Prescriptions:
New
clopidogrel 75 mg Tablet
75 mg PO DAILY Qty: 0 0RF
Rx Instructions:
last day 06/11
losartan 50 mg Tablet
50 mg PO DAILY Qty: 0 0RF
atorvastatin 80 mg Tablet
80 mg PO QPM Qty: 0 0RF
nifedipine 30 mg Tablet Extended Release
30 mg PO DAILY Qty: 0 0RF
aspirin 81 mg Tablet,Delayed Release (Dr/Ec)
81 mg PO DAILY Qty: 0 0RF
nifedipine 60 mg Tablet Extended Release
60 mg PO DAILY@2000 Qty: 0 0RF
hydrochlorothiazide 25 mg Tablet
25 mg PO DAILY Qty: 0 0RF
melatonin 5 mg Tablet
5 mg PO HSPRN PRN (Reason: insomnia) Qty: 1 0RF
cyanocobalamin (vitamin B-12) [Vitamin B-12] 500 mcg Tablet
1,000 mcg PO DAILY Qty: 1 0RF
Continued
levothyroxine [Synthroid] 100 mcg Tablet
100 mcg PO DAILY
sitagliptin 100 mg Tablet
100 mg PO DAILY
Discharge Orders:
Discharge Patient (As Directed); Ordered 05/27/25
Ordered By: Jean-Paul Mattson
Discharge Date and Time
Discharge Date/Time: 05/27/25 15:24
Print Language: MALDIVIAN
== END 2025-05-27 15:24 | DRG 64 ==
LOC: 3 WEST ACU 00:34
PROVIDERS: Emergency Medicine; Internal Medicine; Nurse Practitioner Primary Care; ADMITTING PHYSICIAN Student in an Organized Health Care Education/Training Program; ATTENDING PHYSICIAN Internal Medicine; CONSULT PHYSICIAN Internal Medicine Critical Care Medicine; CONSULT PHYSICIAN Psychiatry & Neurology Neurology; EMERGENCY PHYSICIAN Emergency Medicine; FAMILY PHYSICIAN Family Medicine; OTHER PHYSICIAN Physical Medicine & Rehabilitation
DX: I63.543 Cerebral infarction due to unspecified occlusion or stenosis of bilateral cerebellar arteries (principal); G93.41 Metabolic encephalopathy; I16.1 Hypertensive emergency; N17.9 Acute kidney failure, unspecified; E87.5 Hyperkalemia; E78.5 Hyperlipidemia, unspecified; E53.8 Deficiency of other specified B group vitamins; E11.9 Type 2 diabetes mellitus without complications; R44.1 Visual hallucinations; Z79.890 Hormone replacement therapy; E89.0 Postprocedural hypothyroidism; F41.9 Anxiety disorder, unspecified; G89.29 Other chronic pain; I10 Essential (primary) hypertension; M25.78 Osteophyte, vertebrae; M50.321 Other cervical disc degeneration at C4-C5 level; Z79.84 Long term (current) use of oral hypoglycemic drugs; Z79.899 Other long term (current) drug therapy; Z83.3 Family history of diabetes mellitus; Z90.49 Acquired absence of other specified parts of digestive tract; Z96.651 Presence of right artificial knee joint
CPT/HCPCS: 70450; 70496; 70498; 70551; 71045; 80048; 80053; 80061; 81003; 82088; 82570; 82607; 82728; 82962; 83036; 83540; 83735; 84244; 84300; 84439; 84443; 84484; 85025; 85027; 85610; 85652; 85730; 86140; 92507; 92523; 92610; 93005; 93306; 96365; 96366; 97116; 97129; 97163; 97167; 97530; 97535; 99291; Q9967